=== PATIENT | female | born 1950 | race Caucasian/White ===

== ENCOUNTER 2020-08-18 10:58 | Outpatient (REF) | payer MEDICARE, SELFPAY | END 2020-08-18 10:59 | disposition home or self-care (01) | LOC: HO.LAB 10:58 | PROVIDERS: PCP Internal Medicine; Visit Provider Internal Medicine | DX: Z20.828 Contact with and (suspected) exposure to other viral communicable diseases (principal) | CPT/HCPCS: C9803; U0003 ==

== ENCOUNTER 2020-11-17 08:58 | Outpatient (REF) | payer MEDICARE, SELFPAY ==
[2020-11-17 10:55] LABS: Cholesterol 159 mg/dL; HDL Cholesterol 34 mg/dL; LDL Cholesterol Calculated 95 mg/dl; Triglycerides 152 mg/dL
== END 2020-11-17 08:59 | disposition home or self-care (01) ==
LOC: HO.LAB 08:58
PROVIDERS: PCP Internal Medicine; Visit Provider Internal Medicine
DX: E78.5 Hyperlipidemia, unspecified (principal)
CPT/HCPCS: 36415; 80061

== ENCOUNTER 2020-11-18 05:24 | Emergency (ER) | payer MEDICARE, SELFPAY ==
--- NOTE | 2020-11-18 05:35 | ECG_ITS ---
Test Reason : PALPITATIONS Blood Pressure : / mmHG Vent. Rate : 099 BPM Atrial Rate : 099 BPM P-R Int : 216 ms QRS Dur : 086 ms QT Int : 346 ms P-R-T Axes : 039 -36 009 degrees QTc Int : 444 ms Sinus rhythm with 1st degree A-V block Left axis deviation Nonspecific ST abnormality Abnormal ECG When compared with ECG of 09-JUL-2015 07:41, IA interval has increased Vent. rate has increased BY 49 BPM Nonspecific T wave abnormality, improved in Anterolateral leads QT has lengthened Referred By: Lavern Aguayo Electronically Signed By:HARDY MARIE MD
--- NOTE | 2020-11-18 05:36 | ED.ARRPALP ---
HPI - Arrhythmia/Palpitations General Chief Complaint: Arrhythmia/Palpitations Stated Complaint: Fast heartbeat Time Seen by Provider: 11/18/20 05:35 Source: patient Mode of arrival: ambulatory History of Present Illness HPI narrative: This is a 70-year-old female with history of hypertension and hypercholesterolemia who presents with onset ?heart racing and palpitations? this started early this morning. Patient states that this is not been associated with any fevers, chills, cough, shortness of breath, dizziness, headache and states that this last occurred when she was diagnosed with COVID in 07/2020. She stated that time that resolved and she did not undergo any further evaluation. Patient then endorses that she had her 1st COVID-19 vaccine approximately 2 weeks ago and since that time has been having intermittent palpitations, but this morning was the most persistent. She has concerns regarding proceeding with the 2nd vaccine and her history is significant for having lost her in August to COVID-19, but she states she has not felt like she was ?anxious?. Related Data Home Medications Medication Instructions Recorded Confirmed amlodipine 2.5 mg tablet 2.5 mg PO DAILY 08/22/20 08/24/20 atorvastatin 10 mg tablet 10 mg PO DAILY 08/22/20 08/24/20 clobetasol 0.05 % topical cream 1 appl TOPICAL BID 08/22/20 08/24/20 fenofibrate 160 mg tablet 160 mg PO DAILY 08/22/20 08/24/20 valsartan 320 mg tablet 320 mg PO DAILY 08/22/20 08/24/20 Allergies Allergy/AdvReac Type Severity Reaction Status Date / Time No Known Allergies Allergy Verified 11/16/20 12:52 Review of Systems Review of Systems: Pertinent positives and negatives as stated in HPI 10 point review of systems is otherwise negative. PMFSH Past Medical History Source: nursing notes reviewed Surgical History H/O rectal polypectomy History of bladder surgery History of cholecystectomy Family History Family History Father Hodgkin disease Mother Medical history unknown Social History Social History Smoking Status: Never smoker Use of substances other than those prescribed or required for medical reasons: No Advance Directives: No Physical Exam Vital Signs: Vital Signs: Last Vital Signs Temp 98 F 11/18/20 05:39 Pulse 90 11/18/20 05:39 Resp 16 11/18/20 05:39 BP 184/91 H 11/18/20 05:39 Pulse Ox 95 11/18/20 05:39 Body Mass Index 33.9 VITAL SIGNS: Reviewed. GENERAL: Well developed, well nourished, in no acute distress. HEAD: Normocephalic/atraumatic, NOSE: Nares patent bilateral OROPHARYNX: no oral lesions noted, posterior pharynx clear NECK: Supple, no adenopathy LUNGS: Normal breath sounds. No adventitious sounds or accessory muscle use. SpO2<95> CARDIOVASCULAR: Regular rate and rhythm without noted murmurs, no JVD or lower extremity edema. ABDOMEN: Soft, non-tender, non-distended with bowel sounds. NEUROLOGIC: Alert and oriented x 4. Course Course Course Narrative: This is a 70-year-old female with history and clinical presentation consistent with palpitations and will evaluate for etiologies infection, anemia, arrhythmia, electrolyte abnormalities, and suspect there is a component of anxiety secondary to a motion all association with COVID-19 due to the loss of her in August/2020. Patient was encouraged to proceed with the 2nd COVID-19 vaccine. Patient signed out to Dr Morse. MDM - Arrhythmia/Palpitations ECG Data Attestation: I personally reviewed and interpreted this ECG as follows: Prior ECG tracings: available for review (07/09/2015 there is minor change in comparison with [id number]) Interpretation: Sinus rhythm with first-degree AV block, HR-99, no evidence of acute ischemia, KYAW-216, QRS/QTC are within normal limits. Discharge Plan Discharge Prescriptions: No Action fenofibrate 160 mg tablet 160 mg PO DAILY RF: 0 amlodipine 2.5 mg tablet 2.5 mg PO DAILY RF: 0 atorvastatin 10 mg tablet 10 mg PO DAILY RF: 0 valsartan 320 mg tablet 320 mg PO DAILY RF: 0 clobetasol 0.05 % cream 1 appl topical BID RF: 0
[2020-11-18 05:39] VITALS: BP 184/91; PULSE 90; RESP 16; TEMP 36.6; O2SAT 95; BMI 33.9
[2020-11-18 06:41] LABS: MANUAL DIFF FLAG NO
[2020-11-18 06:42] VITALS: BP 149/62
[2020-11-18 06:43] LABS: Basophils Percent Auto 0.7 % (0-2); Eosinophils Absolute Auto 0.2 X10*3/uL (0.0-0.4); Hematocrit 43.5 % (37-47); Hemoglobin 15.1 g/dl (12.0-16.0); Imm Gran Abs Auto 0.01 X10*3/uL (0.00-0.03); Imm Gran Pct Auto 0.2 % (0.0-0.4); Lymphocytes Absolute Auto 1.1 X10*3/uL (1.2-4.9); Lymphocytes Percent Auto 25.6 % (20-40); Mean Corpuscular HGB Conc 34.7 g/dl (31.0-35.0); Mean Corpuscular Hemoglobin 31.1 pg (27.0-33.0); Mean Corpuscular Volume 89.7 fL (80-98); Mean Platelet Volume 10.6 fL (9.4-12.3); Monocytes Absolute Auto 0.5 X10*3/uL (0.1-1.2); Monocytes Percent Auto 10.8 % (2-11); Neutrophils Absolute Auto 2.6 X10*3/uL (2.0-8.3); Neutrophils Percent Auto 58.7 % (45-73); Platelet Count 207 X10*3/uL (160-400); Red Blood Count 4.85 X10*6/uL (4.20-5.50); Red Cell Distribution Width 12.5 % (11.0-16.0); White Blood Count 4.5 X10*3/uL (4.8-10.8)
[2020-11-18 06:54] LABS: Glucose Urine UA >=1000 MG/DL (NEG); Leukocyte Esterase Urine NEG (NEG); Nitrite Urine NEG (NEG); Specific Gravity - Urine 1.025 (1.005-1.025); Urine Blood NEG (NEG); Urine Ketones NEG (NEG); Urine Protein NEG (NEG-TRACE)
[2020-11-18 07:02] LABS: Appearance Urine CLEAR; Color Urine YELLOW
[2020-11-18 07:08] LABS: Bacteria Urine TRACE /LPF; RBC Urine 0-2 /HPF (0); Squamous Epithelial Cell Urine 2+ /LPF
[2020-11-18 07:14] LABS: Alanine Aminotransferase 21 U/L (0-31); Alkaline Phosphatase 36 U/L (39-117); Anion Gap 15 (12-20); Aspartate Amino Transferase 18 U/L (5-31); Bilirubin Total 0.5 mg/dL (0.0-1.0); Blood Urea Nitrogen 18 mg/dL (9-16); Calcium 9.5 mg/dL (8.4-10.2); Carbon Dioxide 21 mmol/L (22-29); Chloride 106 mmol/L (96-108); Creatinine Clr Calc Pharmacy 72.1; Estimated Glomerular Filt Rate > 60; Glucose Random 284 mg/dL (60-115); Lipase 30 U/L (8-78); Potassium 4.3 mmol/L (3.3-5.1); Sodium 138 mmol/L (135-145)
[2020-11-18 08:23] VITALS: BP 156/85; PULSE 86; RESP 16; O2SAT 95
== END 2020-11-18 09:46 | disposition home or self-care (01) ==
PROVIDERS: Student in an Organized Health Care Education/Training Program; Emergency Provider Emergency Medicine Emergency Medical Services; PCP Internal Medicine
DX: R00.2 Palpitations (principal); R73.9 Hyperglycemia, unspecified; I10 Essential (primary) hypertension; E78.00 Pure hypercholesterolemia, unspecified; Z86.16 Personal history of COVID-19; Z72.89 Other problems related to lifestyle; Z63.4 Disappearance and death of family member; Z79.02 Long term (current) use of antithrombotics/antiplatelets
CPT/HCPCS: 36415; 80053; 81001; 81003; 83690; 85025; 93005; 99283; 99285

== ENCOUNTER 2021-02-14 09:26 | Outpatient (REF) | payer MEDICARE, SELFPAY ==
[2021-02-14 10:27] LABS: Estimated Average Glucose 206 mg/dL; Hemoglobin A1c % 8.8 %
[2021-02-14 10:30] LABS: Glucose Fasting 185 mg/dL (60-99)
== END 2021-02-14 09:27 | disposition home or self-care (01) ==
LOC: HO.LAB 09:26
PROVIDERS: PCP Internal Medicine; Visit Provider Internal Medicine
DX: E11.65 Type 2 diabetes mellitus with hyperglycemia (principal)
CPT/HCPCS: 36415; 82947; 83036

== ENCOUNTER 2021-03-28 08:54 | Outpatient (REF) | payer MEDICARE, SELFPAY ==
[2021-03-28 09:58] LABS: Glucose Fasting 118 mg/dL (60-99)
[2021-03-28 10:17] LABS: Estimated Average Glucose 163 mg/dL; Hemoglobin A1c % 7.3 %
[2021-03-28 11:16] LABS: Creatinine Urine 108.85 mg/dL; Microalbum/Creatinine Ratio Ur 14.6 ug/mg cr
== END 2021-03-28 08:55 | disposition home or self-care (01) ==
LOC: HO.LAB 08:54
PROVIDERS: PCP Internal Medicine; Visit Provider Internal Medicine
DX: E11.65 Type 2 diabetes mellitus with hyperglycemia (principal)
CPT/HCPCS: 36415; 82043; 82947; 83036

== ENCOUNTER 2021-06-09 15:42 | Outpatient (REF) | payer MEDICARE, SELFPAY ==
[2021-06-09 15:50] LABS: Appearance Urine CLEAR; Color Urine YELLOW; Glucose Urine UA NEG (NEG); Leukocyte Esterase Urine TRACE (NEG); Nitrite Urine NEG (NEG); PH 6.5 (5.0-8.0); Specific Gravity - Urine 1.025 (1.005-1.025); UACC Culture Trigger YES; Urine Blood NEG (NEG); Urine Ketones NEG (NEG); Urine Protein NEG (NEG-TRACE)
[2021-06-09 16:04] LABS: Bacteria Urine 2+ /LPF; RBC Urine 0 /HPF (0); Squamous Epithelial Cell Urine 3+ /LPF; WBC Urine 0-2 /HPF (0-4)
== END 2021-06-09 15:43 | disposition home or self-care (01) ==
LOC: HO.LNP 15:42
PROVIDERS: Visit Provider Physician Assistant Medical
DX: R30.0 Dysuria (principal)
CPT/HCPCS: 81001; 87086

== ENCOUNTER 2021-07-11 08:58 | Outpatient (REF) | payer MEDICARE, SELFPAY ==
[2021-07-11 10:37] LABS: Glucose Fasting 121 mg/dL (60-99)
[2021-07-11 10:45] LABS: Estimated Average Glucose 131 mg/dL; Hemoglobin A1c % 6.2 %
== END 2021-07-11 08:59 | disposition home or self-care (01) ==
LOC: HO.LAB 08:58
PROVIDERS: PCP Internal Medicine; Visit Provider Internal Medicine
DX: E11.65 Type 2 diabetes mellitus with hyperglycemia (principal)
CPT/HCPCS: 36415; 82947; 83036

== ENCOUNTER 2021-10-03 08:57 | Outpatient (REF) | payer MEDICARE, SELFPAY ==
--- NOTE | ~2021-10-03 | US_ITS ---
EXAMINATION: US ABDOMEN COMPLETE CLINICAL INFORMATION: Unspecified abdominal pain. COMPARISON: CT abdomen and pelvis 07/04/2011. Ultrasound kidneys and bladder 01/16/2011. TECHNIQUE: Real-time imaging of the abdominal viscera. Technically difficult study secondary to bowel gas and body habitus. FINDINGS: PANCREAS: Visualized portions unremarkable. ABDOMINAL AORTA: Visualized portions unremarkable. INFERIOR VENA CAVA: Visualized portions unremarkable. LIVER: Diffuse increased echotexture without focal abnormality. GALLBLADDER: Surgically absent. COMMON BILE DUCT: 0.7 cm. Unremarkable. RIGHT KIDNEY: 11.0 cm. Unremarkable. LEFT KIDNEY: 11.0 cm. An anechoic cyst in the upper pole measures 2.4 cm. Color Doppler showed no abnormal vascular flow. SPLEEN: 11.5 cm. Unremarkable. FREE FLUID: None. US/US abdomen complete IMPRESSION: 1. Hepatic steatosis without other significant abnormality in a patient status post cholecystectomy. 2. Left renal cyst demonstrates benign features.
== END 2021-10-03 08:58 | disposition home or self-care (01) ==
LOC: HO.US 08:57
PROVIDERS: Visit Provider Internal Medicine
DX: R10.9 Unspecified abdominal pain (principal)
CPT/HCPCS: 76700

== ENCOUNTER 2021-10-12 09:04 | Outpatient (REF) | payer MEDICARE, SELFPAY ==
[2021-10-12 09:57] LABS: Estimated Average Glucose 137 mg/dL; Hemoglobin A1c % 6.4 %
[2021-10-12 09:59] LABS: Glucose Fasting 117 mg/dL (60-99)
== END 2021-10-12 09:05 | disposition home or self-care (01) ==
LOC: HO.LAB 09:04
PROVIDERS: PCP Internal Medicine; Visit Provider Internal Medicine
DX: E11.65 Type 2 diabetes mellitus with hyperglycemia (principal)
CPT/HCPCS: 36415; 82947; 83036

== ENCOUNTER 2022-01-01 09:12 | Outpatient (REF) | payer OTHER, MEDICARE, SELFPAY ==
--- NOTE | ~2022-01-01 | XR_ITS ---
EXAMINATION: XR HAND, LEFT CLINICAL INFORMATION: Pain in the hand. COMPARISON: None. TECHNIQUE: PA, lateral, and oblique views of the left hand. 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 The remaining bones, joints and soft tissues are normal. 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
[2022-01-01 10:51] LABS: Estimated Average Glucose 134 mg/dL; Hemoglobin A1c % 6.3 %
[2022-01-01 11:27] LABS: Cholesterol 142 mg/dL; Glucose Fasting 104 mg/dL (60-99); HDL Cholesterol 30 mg/dL; LDL Cholesterol Calculated 80 mg/dl; Triglycerides 164 mg/dL
== END 2022-01-01 09:13 | disposition home or self-care (01) ==
LOC: HO.LAB 09:12
PROVIDERS: PCP Internal Medicine; Visit Provider Internal Medicine
DX: Z00.00 Encounter for general adult medical examination without abnormal findings (principal); E11.65 Type 2 diabetes mellitus with hyperglycemia; M79.642 Pain in left hand
CPT/HCPCS: 36415; 73120; 80061; 82947; 83036

== ENCOUNTER 2022-02-13 09:30 | Outpatient (RCR) | payer OTHER, MEDICARE, SELFPAY ==
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
== END 2022-02-13 13:41 | disposition home or self-care (01) ==
LOC: HO.OT 09:30
PROVIDERS: PCP Internal Medicine; Visit Provider Internal Medicine
DX: M25.532 Pain in left wrist (principal)
CPT/HCPCS: 29125; 97035; 97110; 97140; 97165; 97760

== ENCOUNTER 2022-03-21 10:00 | Outpatient (RCR) | payer OTHER, MEDICARE, SELFPAY ==
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
--- NOTE | 2022-03-21 13:55 | MHC.PT.DC ---
[facility] [place] Office [place] Office [place] Office [address] Philipp Stahl [address] [phone] F: [phone] F: [phone] F: [phone] F: [phone] Physical Therapy Discharge Report Diagnosis: Contusion of unspecified thigh Date of Surgery: N/A Date of Evaluation: 02/25/22 Date of Discharge: 03/21/22 Treatments to Date: 7 Cancellations to Date: No Shows to Date: Discharge Status: Achieved Goals Improved Function Independent with HEP Discharge Summary: Pt has made excellent progress since SOC. She has met her STGs and made good progress toward her LTGs. She has improved ROM and strength throughout B LE's. She has no pain and she is able to perform all functional activities including stair navigation and getting in/out of car without pain or compensation. She is I with HEP. Pt is being D/C from PT at this time. She has printed, updated copy of HEP. Pt reports no further questions or concerns for PT at this time. Electronically signed by: Cassidy Levine, PT, DPT Please sign and return to therapist. Thank you for your referral.
== END 2022-03-21 13:56 | disposition home or self-care (01) ==
LOC: HO.PT 10:00
PROVIDERS: Visit Provider Internal Medicine
DX: S70.10 Contusion of unspecified thigh (principal); V89.2XXD Person injured in unspecified motor-vehicle accident, traffic, subsequent encounter
CPT/HCPCS: 97110; 97140; 97161

== ENCOUNTER 2022-04-17 08:08 | Outpatient (REF) | payer MEDICARE, SELFPAY ==
[2022-04-17 08:58] LABS: Estimated Average Glucose 123 mg/dL; Hemoglobin A1c % 5.9 %
[2022-04-17 09:34] LABS: Cholesterol 139 mg/dL; Glucose Fasting 127 mg/dL (60-99); HDL Cholesterol 32 mg/dL; LDL Cholesterol Calculated 81 mg/dl; Triglycerides 133 mg/dL
== END 2022-04-17 08:09 | disposition home or self-care (01) ==
LOC: HO.LAB 08:08
PROVIDERS: PCP Internal Medicine; Visit Provider Internal Medicine
DX: E11.65 Type 2 diabetes mellitus with hyperglycemia (principal)
CPT/HCPCS: 36415; 80061; 82947; 83036

== ENCOUNTER → 2022-05-16 15:13 | Outpatient (REF) | payer MEDICARE, OTHER, SELFPAY ==
--- NOTE | 2022-05-16 15:17 | ECG_ITS ---
Test Reason : PALPITATIONS Blood Pressure : / mmHG Vent. Rate : 063 BPM Atrial Rate : 063 BPM P-R Int : 194 ms QRS Dur : 088 ms QT Int : 410 ms P-R-T Axes : 049 -22 012 degrees QTc Int : 419 ms Normal sinus rhythm Nonspecific T wave abnormality Abnormal ECG When compared with ECG of 18-NOV-2020 05:36, Vent. rate has decreased BY 36 BPM Nonspecific T wave abnormality, worse in Anterolateral leads Referred By: Octaviano Scott Electronically Signed By:NEREIDA BROOKE
== END ==
LOC: HO.CARD 15:13
PROVIDERS: Visit Provider Internal Medicine
DX: Z13.6 Encounter for screening for cardiovascular disorders (principal)
CPT/HCPCS: 93005

== ENCOUNTER 2022-08-07 07:37 | Outpatient (REF) | payer MEDICARE, SELFPAY ==
[2022-08-07 08:47] LABS: Glucose Fasting 138 mg/dL (60-99)
[2022-08-07 09:29] LABS: Estimated Average Glucose 146 mg/dL; Hemoglobin A1c % 6.7 %
== END 2022-08-07 07:38 | disposition home or self-care (01) ==
LOC: HO.LAB 07:37
PROVIDERS: PCP Internal Medicine; Visit Provider Internal Medicine
DX: E11.65 Type 2 diabetes mellitus with hyperglycemia (principal)
CPT/HCPCS: 36415; 82947; 83036

== ENCOUNTER 2022-11-06 08:59 | Outpatient (REF) | payer MEDICARE, SELFPAY ==
[2022-11-06 09:39] LABS: Estimated Average Glucose 148 mg/dL; Hemoglobin A1c % 6.8 %
[2022-11-06 10:07] LABS: Cholesterol 121 mg/dL; Glucose Fasting 124 mg/dL (60-99); HDL Cholesterol 30 mg/dL; LDL Cholesterol Calculated 62 mg/dl; Triglycerides 145 mg/dL
== END 2022-11-06 09:00 | disposition home or self-care (01) ==
LOC: HO.LAB 08:59
PROVIDERS: PCP Internal Medicine; Visit Provider Internal Medicine
DX: E78.5 Hyperlipidemia, unspecified (principal); E11.65 Type 2 diabetes mellitus with hyperglycemia
CPT/HCPCS: 36415; 80061; 82947; 83036

== ENCOUNTER 2023-02-28 08:57 | Outpatient (REF) | payer MEDICARE, SELFPAY ==
[2023-02-28 10:04] LABS: Cholesterol 124 mg/dL; Glucose Fasting 97 mg/dL (60-99); HDL Cholesterol 40 mg/dL; LDL Cholesterol Calculated 69 mg/dl; Triglycerides 79 mg/dL
[2023-02-28 10:19] LABS: Estimated Average Glucose 134 mg/dL; Hemoglobin A1c % 6.3 %
== END 2023-02-28 08:58 | disposition home or self-care (01) ==
LOC: HO.LAB 08:57
PROVIDERS: PCP Internal Medicine; Visit Provider Internal Medicine
DX: E78.5 Hyperlipidemia, unspecified (principal); R73.9 Hyperglycemia, unspecified
CPT/HCPCS: 36415; 80061; 82947; 83036

== ENCOUNTER 2023-03-17 09:00 | Outpatient (RCR) | payer MEDICARE, SELFPAY ==
--- NOTE | 2022-12-18 13:30 | MHC.PT.EP ---
[facility] [place] Office [place] Office [place] Office [address] Philipp Stahl [address] [phone] F: [phone] F: [phone] F: [phone] F: [phone] Physical Therapy Plan of Care Date of Evaluation: Date of Surgery: Diagnosis: low back pain (MD Dx) L piriformis syndrome (PT Dx) Assessment: Patient is a pleasant 72 y.o. female who is referred to PT by Dr. Octaviano Scott MD with Dx of low back pain. PT diagnosis is LEFT piriformis syndrome, sciatica. Patient impairments include pain, limited ROM, weakness, antalgic gait. Patient current functional limitations are prolonged standing, walking, getting up in the morning, putting on shoes/socks, lift leg to get into car, unable to perform reciprocal stairs. Patient will benefit from skilled PT to address aforementioned impairments and functional limitations to meet established goals. Frequency and Duration: The patient will be seen 2x/week for 4 weeks Short Term Goals: 2 weeks Patient demonstrates consistency and independence with HEP to self manage symptoms. Patient demonstrates normalized gait pattern without compensations to ambulate community distances. Jail Goals: 4 weeks Patient presents with increased L hip glute med strength 4/5 to be able to ascend/descend 12 steps reciprocally with railings. Patienr presents with increased lumbar spine flexion 80 degrees to be able to don/doff shoes/socks. Treatment Plan: Modalities to reduce pain, spasms and effusion. Manual therapy to restore motion and function. Therapeutic exercise to improve strength and flexibility. Neuromuscular re-education for posture and balance. Therapeutic activities to return to functional activities of daily living. Electronically signed by: Ibeth Estrada, PT, DPT Please sign and return to therapist. Thank you for your referral.
--- NOTE | 2023-03-17 10:42 | MHC.PT.DC ---
[facility] [place] Office [place] Office [place] Office [address] Philipp Stahl 140 [facility] [phone] F: [phone] F: [phone] F: [phone] F: [phone] Physical Therapy Discharge Report Diagnosis: low back pain (MD Dx) L piriformis syndrome (PT Dx) Date of Surgery: Date of Evaluation: 12/18/22 Date of Discharge: Treatments to Date: 13 Cancellations to Date: No Shows to Date: Discharge Status: Discharge Summary: Mercedes demonstrates improvement in all areas, is pain free, improved AROM, increased hip strength and no antalgic gait. She demonstrates ability to self manage symptoms with postural changes and HEP. She is discharged from PT at this time. Electronically signed by: Please sign and return to therapist. Thank you for your referral.
== END 2023-03-17 10:42 | disposition home or self-care (01) ==
LOC: HO.PT 09:00
PROVIDERS: PCP Internal Medicine; Visit Provider Internal Medicine
DX: M54.50 Low back pain, unspecified (principal)
CPT/HCPCS: 97110; 97140; 97162; 97530

== ENCOUNTER 2023-05-30 09:00 | Outpatient (REF) | payer MEDICARE, SELFPAY ==
[2023-05-30 09:21] LABS: MANUAL DIFF FLAG NO
[2023-05-30 09:39] LABS: Basophils Percent Auto 0.9 % (0-2); Eosinophils Absolute Auto 0.3 X10*3/uL (0.0-0.4); Eosinophils Percent Auto 5.7 % (0-4); Hematocrit 41.2 % (37.0-47.0); Hemoglobin 14.1 g/dl (12.0-16.0); Imm Gran Abs Auto 0.02 X10*3/uL (0.00-0.03); Imm Gran Pct Auto 0.5 % (0.0-0.4); Lymphocytes Absolute Auto 1.3 X10*3/uL (1.2-4.9); Lymphocytes Percent Auto 28.7 % (20-40); Mean Corpuscular HGB Conc 34.2 g/dl (31.0-35.0); Mean Corpuscular Hemoglobin 29.9 pg (27.0-33.0); Mean Corpuscular Volume 87.3 fL (80.0-98.0); Mean Platelet Volume 10.4 fL (9.4-12.3); Monocytes Absolute Auto 0.5 X10*3/uL (0.1-1.2); Monocytes Percent Auto 11.1 % (2-11); Neutrophils Absolute Auto 2.4 x10*3/uL (2.0-8.3); Neutrophils Percent Auto 53.1 % (45-73); Platelet Count 201 X10*3/uL (160-400); Red Blood Count 4.72 X10*6/uL (4.20-5.50); Red Cell Distribution Width 12.6 % (11.0-16.0); White Blood Count 4.4 X10*3/uL (4.8-10.8)
[2023-06-04 21:38] LABS: Glucose-6-Phosphate Dehydrogen 12.5 U/g Hgb (7.0-20.5)
== END 2023-05-30 09:01 | disposition home or self-care (01) ==
LOC: HO.LAB 09:00
PROVIDERS: Absent Provider Physician Assistant Medical; PCP Internal Medicine; Visit Provider Internal Medicine
DX: L13.8 Other specified bullous disorders (principal); Z79.899 Other long term (current) drug therapy
CPT/HCPCS: 36415; 82955; 85025

== ENCOUNTER 2023-06-05 09:27 | Outpatient (AMB) | payer MEDICARE, SELFPAY ==
[2023-06-05 09:28] VITALS: BP 136/64; PULSE 58; O2SAT 98; BMI 33.9
--- NOTE | 2023-06-05 09:28 | MHC.PC.OV ---
Vital Signs 06/05/23 09:28 Height 5 ft 6 in Weight 210 lb BMI 33.9 BP 136/64 Blood Pressure Location Lt brachial Position Sitting Pulse 58 Pulse Source Pulse Oximeter Pulse Oximetry (%) 98 Oxygen Delivery Method Room Air Intake Visit Reasons: 3mth f/u Grid Inspector: Not Required per policy Accompanied by: Self / Same As Patient Allergies No Known Allergies Allergy (Verified 06/05/23 09:28) Medication List - Last Reconciled 06/05/23 by Octaviano Scott MD amlodipine 2.5 mg PO DAILY atorvastatin 10 mg PO DAILY blood sugar diagnostic to check blood sugars twice a day blood-glucose meter ([employer] Ultra2 Meter) Use to check blood sugars twice a day fenofibrate 160 mg PO DAILY lancets ([employer]ica Lancets) to use twice a day metformin 500 mg PO BID methylprednisolone (Medrol (Charles)) PO PER PKG DIR valsartan 320 mg PO DAILY Tobacco use date assessed: 11/11/22 Fall risk assessment: No Falls in past year Last assessed Fall Risk: 06/05/23 Dental Screening Dental Screen Date: 06/05/23 Did you have a dental visit in the last 12 months?: Yes Did you have a dental problem in the last 6 months where you did not have access to dental care?: No HPI 3mth f/u HPI Details HTN Hyperlipidemia and DM; stable; labs fine; compliant [facility] Medical History Hypertension Obesity Type 2 diabetes mellitus with obesity Diabetes mellitus Surgical History History of bladder surgery H/O rectal polypectomy History of cholecystectomy Family History Father Hodgkin disease Mother Medical history unknown Social History Housing: House Alcohol intake: current Alcohol intake frequency: a few times a week Patient Tobacco Use Status: Never used Tobacco e-Cigarette/Vaping Use: Never Used Second Hand Smoke Exposure: No service: No Current occupational status: retired Current occupational exposures/hazards: No Cognitive needs: No Hearing needs: No Vision needs: Yes Questionnaire PHQ-9 Over the last 2 weeks, how often have you been bothered by any of the following problems? 1. Little interest or pleasure in doing things: not at all 2. Feeling down, depressed, or hopeless: not at all 3. Trouble falling or staying asleep, or sleeping too much: not at all 4. Feeling tired or having little energy: not at all 5. Poor appetite or overeating: not at all 6. Feeling bad about yourself - or that you are a failure or have let yourself or your family down: not at all 7. Trouble concentrating on things, such as reading the newspaper or watching television: not at all 8. Moving or speaking so slowly that other people could have noticed. Or the opposite - being so fidgety or restless that you have been moving around a lot more than usual: not at all 9. Thoughts that you would be better off or of hurting yourself in some way: not at all Total score: 0 Depression Screening Interpretation: Negative [id number] - PHQ-9 Billing: Yes Source: Developed by Drs. Kaden Perea, Charlee Cerrato, Rylan Richter and colleagues, with an educational roxanne from [employer]. Thrive Questionnaire Date Thrive assessed: 11/11/22 AUDIT C Alcohol Use Questionnaire (AUDIT-C) 1. How often do you have a drink containing alcohol?: Never Total Score: 0 Score Reviewed/Action Taken: Yes DALILA-7 AMB Questionnaire DALILA-7 Date DALILA - 7 assessed: 11/11/22 Source: Developed by Drs. Kaden Perea, Charlee Cerrato, Rylan Richter and colleagues, with an educational roxanne from [employer]. Review of Systems Const Denies chills, Denies headache(s) and Denies weight loss ENT Denies headache(s) Card Denies chest pain, Denies syncope, Denies irregular heart rhythm and Denies dyspnea Resp Denies chest congestion, Denies cough and Denies dyspnea GI Denies abdominal pain, Denies change in stool character, Denies nausea and Denies vomiting Musc Denies deformity and Denies joint swelling Neuro Denies syncope and Denies headache(s) Physical exam (Primary Care) Vital Signs: Last Vital Signs Pulse 58 06/05/23 09:28 BP 136/64 06/05/23 09:28 Pulse Ox 98 06/05/23 09:28 Oxygen Delivery Method Room Air 06/05/23 09:28 BMI result Body Mass Index 33.9 Tobacco/Smoking Status: Tobacco use Status Tobacco use date assessed 11/11/22 06/05/23 09:29 Patient Tobacco Use Status Never used Tobacco 06/05/23 09:29 e-Cigarette/Vaping Use Never Used 06/05/23 09:29 PHQ-9: PHQ-9 Score PHQ-9: Total score 0 06/05/23 09:41 Depression Screening Interpretation: Negative Thrive Assessment: Date of Thrive Assessment Date Thrive assessed 11/11/22 06/05/23 09:29 Const General: cooperative, comfortable, no acute distress and alert Neck Neck: Yes no lymphadenopathy Thyroid: Thyroid normal Resp Effort & Inspection: normal respiratory effort Auscultation: clear to auscultation bilaterally Percussion: percussion normal Cardio Jugular venous distension: no JVD Palpation: normal PMI Rate: regular rate Rhythm: regular rhythm Heart sounds: S1 normal heart sound present and S2 normal heart sound present GI Inspection: Yes normal to inspection Palpation (GI): No hepatosplenomegaly present Skin General skin exam: no rashes or lesions noted Extrem General: Yes no clubbing, cyanosis or edema Results AMB Hemoglobin A1c AMB Hemoglobin A1c 6.8 % Last Edit by DAVION Sandoval on 06/05/23 09:42 Results Reviewed Results Reviewed: Laboratory Last Values Hgb A1c (Clinic) 6.8 % (4.0-6.0) H 06/05/23 09:30 Assessment and Plan Assessment & Plan (1) Type 2 diabetes mellitus with obesity: Code(s): E11.69 - Type 2 diabetes mellitus with other specified complication; E66.9 - Obesity, unspecified Plan: stable; same rx (2) Hypertension: Code(s): I10 - Essential (primary) hypertension Plan: stable; same rx (3) Hyperlipidemia: Code(s): E78.5 - Hyperlipidemia, unspecified Plan: stable; same rx Orders: Orders AMB Hemoglobin A1c Today E11.69 - Type 2 diabetes mellitus with other specified complication, E66.9 - Obesity, unspecified Coding Level of Care Code Est Pt Level 4 (19892) Diagnoses Type 2 diabetes mellitus with obesity E11.69; E66.9 Hypertension I10 Hyperlipidemia E78.5
== END 2023-06-05 10:22 | disposition home or self-care (01) ==
PROVIDERS: PCP Internal Medicine; Visit Provider Internal Medicine
DX: E11.69 Type 2 diabetes mellitus with other specified complication (principal); E66.9 Obesity, unspecified; I10 Essential (primary) hypertension; Z68.33 Body mass index [BMI] 33.0-33.9, adult; E78.5 Hyperlipidemia, unspecified
CPT/HCPCS: 83036; 99214

== ENCOUNTER 2023-08-29 10:02 | Outpatient (REF) | payer MEDICARE, SELFPAY ==
[2023-08-29 11:41] LABS: Estimated Average Glucose 154 mg/dL
[2023-08-29 11:46] LABS: Cholesterol 127 mg/dL (<200); Glucose Fasting 125 mg/dL (60-99); HDL Cholesterol 35 mg/dL (>40); LDL Cholesterol Calculated 66 mg/dL (<100); Triglycerides 133 mg/dL (<150)
[2023-08-29 12:13] LABS: Thyroid Stimulating Hormone 0.73 uIU/mL (0.32-4.0)
== END 2023-08-29 10:03 | disposition home or self-care (01) ==
LOC: HO.LAB 10:02
PROVIDERS: PCP Internal Medicine; Visit Provider Internal Medicine
DX: E03.9 Hypothyroidism, unspecified (principal); R73.9 Hyperglycemia, unspecified; E78.5 Hyperlipidemia, unspecified
CPT/HCPCS: 36415; 80061; 82947; 83036; 84443

== ENCOUNTER 2023-09-04 11:13 | Outpatient (AMB) | payer MEDICARE, SELFPAY ==
--- NOTE | 2023-09-04 11:15 | A.OFFPC_ITS ---
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 Required: No Residential Builder: Not Required per policy Accompanied by: Self / Same As Patient Allergies No Known Allergies Allergy (Verified 09/04/23 11:16) Medication List - Last Reconciled 09/04/23 by Octaviano Scott MD amlodipine 2.5 mg PO DAILY atorvastatin 10 mg PO DAILY azithromycin take 500 mg today (day 1), then 250 mg for 4 days (days 2-5) PO blood sugar diagnostic to check blood sugars twice a day blood-glucose meter ([employer] Ultra2 Meter) Use to check blood sugars twice a day fenofibrate 160 mg PO DAILY lancets ([employer] Delica Lancets) to use twice a day metformin 500 mg PO BID methylprednisolone (Medrol (Charles)) PO PER PKG DIR valsartan 320 mg PO DAILY Tobacco use date assessed: 11/11/22 Fall risk assessment: No Falls in past year Last assessed Fall Risk: 09/04/23 Dental Screening Dental Screen Date: 09/04/23 Did you have a dental visit in the last 12 months?: Yes Did you have a dental problem in the last 6 months where you did not have access to dental care?: No Was dental information given to patient?: Patient has dentist HPI 3mth f/u HPI Details HTN hyperlip and osteoporosis; doing well on rx PFSH Medical History Hypertension Obesity Type 2 diabetes mellitus with obesity Diabetes mellitus Surgical History History of bladder surgery H/O rectal polypectomy History of cholecystectomy Family History Father Hodgkin disease Mother Medical history unknown Social History Housing: House Alcohol intake: current Alcohol intake frequency: a few times a week Patient Tobacco Use Status: Never used Tobacco e-Cigarette/Vaping Use: Never Used Second Hand Smoke Exposure: No service: No Current occupational status: retired Current occupational exposures/hazards: No Cognitive needs: No Hearing needs: No Vision needs: Yes Questionnaire Thrive Questionnaire Date Thrive assessed: 11/11/22 DALILA-7 AMB Questionnaire DALILA-7 Date DALILA - 7 assessed: 11/11/22 Source: Developed by Drs. Kaden Perea, Charlee Cerrato, Rylan Richter and colleagues, with an educational roxanne from [employer]. Review of Systems Const Denies chills, Denies headache(s) and Denies weight loss ENT Denies headache(s) Card Denies chest pain, Denies syncope, Denies irregular heart rhythm and Denies dyspnea Resp Denies chest congestion, Denies cough and Denies dyspnea GI Denies abdominal pain, Denies change in stool character, Denies nausea and Denies vomiting Musc Denies deformity and Denies joint swelling Neuro Denies syncope and Denies headache(s) Physical exam (Primary Care) Vital Signs: Last Vital Signs Pulse 65 09/04/23 11:16 BP 144/72 H 09/04/23 11:16 Pulse Ox 98 09/04/23 11:16 Oxygen Delivery Method Room Air 09/04/23 11:16 BMI result Body Mass Index 33.6 Tobacco/Smoking Status: Tobacco use Status Tobacco use date assessed 11/11/22 09/04/23 11:20 Patient Tobacco Use Status Never used Tobacco 09/04/23 11:20 e-Cigarette/Vaping Use Never Used 09/04/23 11:20 Thrive Assessment: Date of Thrive Assessment Date Thrive assessed 11/11/22 09/04/23 11:20 Const General: cooperative, comfortable, no acute distress and alert Neck Neck: Yes no lymphadenopathy Thyroid: Thyroid normal Resp Effort & Inspection: normal respiratory effort Auscultation: clear to auscultation bilaterally Percussion: percussion normal Cardio Jugular venous distension: no JVD Palpation: normal PMI Rate: regular rate Rhythm: regular rhythm Heart sounds: S1 normal heart sound present and S2 normal heart sound present GI Inspection: Yes normal to inspection Palpation (GI): No hepatosplenomegaly present Skin General skin exam: no rashes or lesions noted Extrem General: Yes no clubbing, cyanosis or edema Assessment and Plan Assessment & Plan (1) Hyperlipidemia: Code(s): E78.5 - Hyperlipidemia, unspecified Plan: stable; same rx (2) Hypertension: Code(s): I10 - Essential (primary) hypertension Plan: stable; same rx Orders: Orders Glucose Fasting Today R73.9 - Hyperglycemia, unspecified Lipid Panel Today E78.5 - Hyperlipidemia, unspecified Hemoglobin A1c Today R73.9 - Hyperglycemia, unspecified Coding Level of Care Code Est Pt Level 3 (49228) Diagnoses Hyperlipidemia E78.5 Hypertension I10
[2023-09-04 11:16] VITALS: BP 144/72; PULSE 65; O2SAT 98; BMI 33.6
== END 2023-09-04 11:52 | disposition home or self-care (01) ==
PROVIDERS: PCP Internal Medicine; Visit Provider Internal Medicine
DX: E78.5 Hyperlipidemia, unspecified (principal); I10 Essential (primary) hypertension
CPT/HCPCS: 99213

== ENCOUNTER 2023-12-09 14:06 | Outpatient (AMB) | payer MEDICARE, SELFPAY ==
[2023-12-09 14:09] VITALS: BP 146/80; PULSE 70; O2SAT 96; BMI 34.1
--- NOTE | 2023-12-09 14:09 | MHC.PC.OV ---
Vital Signs 12/09/23 14:09 Height 5 ft 6 in Weight 211 lb BMI 34.1 BP 146/80 H Blood Pressure Location Lt brachial Position Sitting Pulse 70 Pulse Source Pulse Oximeter Pulse Oximetry (%) 96 Oxygen Delivery Method Room Air Intake Visit Reasons: Bladder Pressure Aircraft Designer Required: No Quantitative Analyst Developer: Not Required per policy Accompanied by: Self / Same As Patient Allergies No Known Allergies Allergy (Verified 09/04/23 11:16) Medication List - Last Reconciled 12/09/23 by Octaviano Scott MD amlodipine 2.5 mg PO DAILY atorvastatin 10 mg PO DAILY blood sugar diagnostic to check blood sugars twice a day blood-glucose meter ([employer] Ultra2 Meter) Use to check blood sugars twice a day fenofibrate 160 mg PO DAILY lancets ([employer] Delica Lancets) to use twice a day metformin 500 mg PO BID sulfamethoxazole-trimethoprim 800-160 mg (Bactrim DS) 1 tab PO BID valsartan 320 mg PO DAILY Tobacco use date assessed: 12/09/23 Fall risk assessment: No Falls in past year Last assessed Fall Risk: 12/09/23 Dental Screening Dental Screen Date: 12/09/23 Did you have a dental visit in the last 12 months?: Yes Did you have a dental problem in the last 6 months where you did not have access to dental care?: No Was dental information given to patient?: Patient has dentist HPI Bladder Pressure HPI Details bladder pressure and frequency for a day [facility] Medical History Hypertension Obesity Type 2 diabetes mellitus with obesity Diabetes mellitus Surgical History History of bladder surgery H/O rectal polypectomy History of cholecystectomy Family History Father Hodgkin disease Mother Medical history unknown Social History Housing: House Alcohol intake: current Alcohol intake frequency: a few times a week Patient Tobacco Use Status: Never used Tobacco e-Cigarette/Vaping Use: Never Used Second Hand Smoke Exposure: No service: No Current occupational status: retired Current occupational exposures/hazards: No Cognitive needs: No Hearing needs: No Vision needs: Yes Questionnaire PHQ-9 Over the last 2 weeks, how often have you been bothered by any of the following problems? 1. Little interest or pleasure in doing things: not at all 2. Feeling down, depressed, or hopeless: not at all 3. Trouble falling or staying asleep, or sleeping too much: not at all 4. Feeling tired or having little energy: not at all 5. Poor appetite or overeating: not at all 6. Feeling bad about yourself - or that you are a failure or have let yourself or your family down: not at all 7. Trouble concentrating on things, such as reading the newspaper or watching television: not at all 8. Moving or speaking so slowly that other people could have noticed. Or the opposite - being so fidgety or restless that you have been moving around a lot more than usual: not at all 9. Thoughts that you would be better off or of hurting yourself in some way: not at all Total score: 0 Depression Screening Interpretation: Negative Depression Screening Done: Yes 58883 - PHQ-9 Billing: Yes Source: Developed by Drs. Kaden Perea, Charlee Cerrato, Rylan Richter and colleagues, with an educational roxanne from [employer]. Thrive Questionnaire Date Thrive assessed: 12/09/23 I am a: Patient What is your living situation today?: I have a steady place to live Within the past 12 months, did the food you bought not last and you didn't have the money to get more?: Never true Within the past 12 months, did you worry whether your food would run out before you got money to buy more?: Never true Do you have trouble paying for medicines?: No Do you have trouble getting transportation to medical appointments?: No Do you have trouble paying your heating and electricity bill?: No Do you have trouble taking care of your child, family member or friend?: No Do you have trouble with day-to-day activities such as bathing, preparing meals, shopping, managing finances, etc.?: No Are you currently unemployed and looking for a job?: No Are you interested in more education?: No Please select the resources that you would like help with: None THRIVE Score: 0 AUDIT C Alcohol Use Questionnaire (AUDIT-C) 1. How often do you have a drink containing alcohol?: Never Total Score: 0 Score Reviewed/Action Taken: Yes DALILA-7 AMB Questionnaire DALILA-7 Date DALILA - 7 assessed: 12/09/23 Feeling nervous, anxious, or on edge: 0 = Not at all Not being able to stop or control worryin = Not at all Worrying too much about different things: 0 = Not at all Trouble relaxin = Not at all Being so restless that it is hard to sit still: 0 = Not at all Becoming easily annoyed or irritable: 0 = Not at all Feeling afraid as if something awful might happen: 0 = Not at all Total DALILA-7 score (0-4 normal; 5-9 mild; 10-14 moderate; 15-21 severe): 0 Source: Developed by Drs. Kaden Perea, Charlee Cerrato, Rylan Richter and colleagues, with an educational roxanne from [employer]. Review of Systems Const Denies chills, Denies headache(s) and Denies weight loss ENT Denies headache(s) Card Denies chest pain, Denies syncope, Denies irregular heart rhythm and Denies dyspnea Resp Denies chest congestion, Denies cough and Denies dyspnea GI Denies abdominal pain, Denies change in stool character, Denies nausea and Denies vomiting Musc Denies deformity and Denies joint swelling Neuro Denies syncope and Denies headache(s) Physical exam (Primary Care) Vital Signs: Last Vital Signs Pulse 70 12/09/23 14:09 BP 146/80 H 12/09/23 14:09 Pulse Ox 96 12/09/23 14:09 Oxygen Delivery Method Room Air 12/09/23 14:09 BMI result Body Mass Index 34.1 Tobacco/Smoking Status: Tobacco use Status Tobacco use date assessed 12/09/23 12/09/23 14:12 Patient Tobacco Use Status Never used Tobacco 12/09/23 14:12 e-Cigarette/Vaping Use Never Used 12/09/23 14:12 PHQ-9: PHQ-9 Score PHQ-9: Total score 0 12/09/23 14:17 Depression Screening Interpretation: Negative Thrive Assessment: Date of Thrive Assessment Date Thrive assessed 12/09/23 12/09/23 14:12 Const General: cooperative, comfortable, no acute distress and alert Neck Neck: Yes no lymphadenopathy Thyroid: Thyroid normal Resp Effort & Inspection: normal respiratory effort Auscultation: clear to auscultation bilaterally Percussion: percussion normal Cardio Jugular venous distension: no JVD Palpation: normal PMI Rate: regular rate Rhythm: regular rhythm Heart sounds: S1 normal heart sound present and S2 normal heart sound present GI Inspection: Yes normal to inspection Palpation (GI): No hepatosplenomegaly present Skin General skin exam: no rashes or lesions noted Extrem General: Yes no clubbing, cyanosis or edema Assessment and Plan Assessment & Plan (1) UTI (urinary tract infection): Code(s): N39.0 - Urinary tract infection, site not specified Plan: rx sent (2) Type 2 diabetes mellitus with obesity: Code(s): E11.69 - Type 2 diabetes mellitus with other specified complication; E66.9 - Obesity, unspecified Medications: New sulfamethoxazole-trimethoprim 800-160 mg (Bactrim DS) 1 tab PO BID 10 tabs 0RF Coding Level of Care Code Est Pt Level 3 (71587) Diagnoses UTI (urinary tract infection) N39.0 Type 2 diabetes mellitus with obesity E11.69; E66.9
== END 2023-12-09 14:27 | disposition home or self-care (01) ==
PROVIDERS: PCP Internal Medicine; Visit Provider Internal Medicine
DX: E11.69 Type 2 diabetes mellitus with other specified complication (principal); N39.0 Urinary tract infection, site not specified; E66.9 Obesity, unspecified; Z68.34 Body mass index [BMI] 34.0-34.9, adult
CPT/HCPCS: 99213

== ENCOUNTER 2024-01-01 09:08 | Outpatient (REF) | payer MEDICARE, SELFPAY ==
[2024-01-01 10:06] LABS: Estimated Average Glucose 148 mg/dL; Hemoglobin A1c % 6.8 % (<6.0)
[2024-01-01 10:20] LABS: Cholesterol 133 mg/dL (<200); Glucose Fasting 125 mg/dL (60-99); HDL Cholesterol 36 mg/dL (>40); LDL Cholesterol Calculated 70 mg/dL (<100); Triglycerides 136 mg/dL (<150)
== END 2024-01-01 09:09 | disposition home or self-care (01) ==
LOC: HO.LAB 09:08
PROVIDERS: PCP Internal Medicine; Visit Provider Internal Medicine
DX: R73.9 Hyperglycemia, unspecified (principal); E78.5 Hyperlipidemia, unspecified
CPT/HCPCS: 36415; 80061; 82947; 83036

== ENCOUNTER 2024-01-05 10:29 | Outpatient (AMB) | payer MEDICARE, SELFPAY ==
[2024-01-05 10:31] VITALS: BP 158/72; PULSE 67; O2SAT 98; BMI 34.4
--- NOTE | 2024-01-05 10:31 | MHC.PC.OV ---
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: No Allergies No Known Allergies Allergy (Verified 01/05/24 10:31) Medication List - Last Reconciled 01/05/24 by Octaviano Scott MD amlodipine 2.5 mg PO DAILY atorvastatin 10 mg PO DAILY blood sugar diagnostic to check blood sugars twice a day blood-glucose meter ([employer] Ultra2 Meter) Use to check blood sugars twice a day fenofibrate 160 mg PO DAILY lancets ([employer] Delica Lancets) to use twice a day metformin 500 mg PO BID valsartan 320 mg PO DAILY Tobacco use date assessed: 01/05/24 Fall risk assessment: No Falls in past year Last assessed Fall Risk: 01/05/24 Dental Screening Dental Screen Date: 12/09/23 HPI 3 month follow up HPI Details HTN hyperlip and dm; doing well and compliant [facility] Medical History Hypertension Obesity Type 2 diabetes mellitus with obesity Diabetes mellitus Surgical History History of bladder surgery H/O rectal polypectomy History of cholecystectomy Family History Father Hodgkin disease Mother Medical history unknown Social History Housing: House Alcohol intake: current Alcohol intake frequency: a few times a week Patient Tobacco Use Status: Never used Tobacco e-Cigarette/Vaping Use: Never Used Second Hand Smoke Exposure: No service: No Current occupational status: retired Current occupational exposures/hazards: No Cognitive needs: No Hearing needs: No Vision needs: Yes Questionnaire Thrive Questionnaire Date Thrive assessed: 01/05/24 I am a: Patient What is your living situation today?: I have a steady place to live Within the past 12 months, did the food you bought not last and you didn't have the money to get more?: Never true Within the past 12 months, did you worry whether your food would run out before you got money to buy more?: Never true Do you have trouble paying for medicines?: No Do you have trouble getting transportation to medical appointments?: No Do you have trouble paying your heating and electricity bill?: No Do you have trouble taking care of your child, family member or friend?: No Do you have trouble with day-to-day activities such as bathing, preparing meals, shopping, managing finances, etc.?: No Are you currently unemployed and looking for a job?: No Are you interested in more education?: No Please select the resources that you would like help with: None Currently or been in a relationship where the following occur: no concerns reported THRIVE Score: 0 AUDIT C Alcohol Use Questionnaire (AUDIT-C) 1. How often do you have a drink containing alcohol?: Never Total Score: 0 Score Reviewed/Action Taken: Yes DALILA-7 AMB Questionnaire DALILA-7 Date DALILA - 7 assessed: 12/09/23 Source: Developed by Drs. Kaden Perea, Charlee Cerrato, Rylan Richter and colleagues, with an educational roxanne from [employer]. Review of Systems Const Denies chills, Denies headache(s) and Denies weight loss ENT Denies headache(s) Card Denies chest pain, Denies syncope, Denies irregular heart rhythm and Denies dyspnea Resp Denies chest congestion, Denies cough and Denies dyspnea GI Denies abdominal pain, Denies change in stool character, Denies nausea and Denies vomiting Musc Denies deformity and Denies joint swelling Neuro Denies syncope and Denies headache(s) Physical exam (Primary Care) Vital Signs: Last Vital Signs Pulse 67 01/05/24 10:31 BP 158/72 H 01/05/24 10:31 Pulse Ox 98 01/05/24 10:31 Oxygen Delivery Method Room Air 01/05/24 10:31 BMI result Body Mass Index 34.4 Tobacco/Smoking Status: Tobacco use Status Tobacco use date assessed 01/05/24 01/05/24 10:36 Patient Tobacco Use Status Never used Tobacco 01/05/24 10:31 e-Cigarette/Vaping Use Never Used 01/05/24 10:31 Thrive Assessment: Date of Thrive Assessment Date Thrive assessed 01/05/24 01/05/24 10:36 Currently or been in a relationship where the following occur: no concerns reported Const General: cooperative, comfortable, no acute distress and alert Neck Neck: Yes no lymphadenopathy Thyroid: Thyroid normal Resp Effort & Inspection: normal respiratory effort Auscultation: clear to auscultation bilaterally Percussion: percussion normal Cardio Jugular venous distension: no JVD Palpation: normal PMI Rate: regular rate Rhythm: regular rhythm Heart sounds: S1 normal heart sound present and S2 normal heart sound present GI Inspection: Yes normal to inspection Palpation (GI): No hepatosplenomegaly present Skin General skin exam: no rashes or lesions noted Extrem General: Yes no clubbing, cyanosis or edema Assessment and Plan Assessment & Plan (1) Hyperlipidemia: Code(s): E78.5 - Hyperlipidemia, unspecified Plan: stable; same rx (2) Hypertension: Code(s): I10 - Essential (primary) hypertension Plan: stable; same rx (3) Type 2 diabetes mellitus with obesity: Code(s): E11.69 - Type 2 diabetes mellitus with other specified complication; E66.9 - Obesity, unspecified Plan: stable; same rx Orders: Orders Complete Blood Count Auto Diff Today Z13.0 - Encounter for screening for diseases of the blood and blood-forming organs and certain disorders involving the immune mechanism Comprehensive Almond. Panel Fast Today Z13.9 - Encounter for screening, unspecified Thyroid Stimulating Hormone Today Z13.29 - Encounter for screening for other suspected endocrine disorder Lipid Panel Today Z13.220 - Encounter for screening for lipoid disorders Microalbumin, Random (w Creat) Today E11.69 - Type 2 diabetes mellitus with other specified complication, E66.01 - Morbid (severe) obesity due to excess calories Hemoglobin A1c Today R73.9 - Hyperglycemia, unspecified Coding Level of Care Code Est Pt Level 4 (87739) Diagnoses Hyperlipidemia E78.5 Hypertension I10 Type 2 diabetes mellitus with obesity E11.69; E66.9
== END 2024-01-05 10:53 | disposition home or self-care (01) ==
PROVIDERS: PCP Internal Medicine; Visit Provider Internal Medicine
DX: E78.5 Hyperlipidemia, unspecified (principal); I10 Essential (primary) hypertension; E11.9 Type 2 diabetes mellitus without complications
CPT/HCPCS: 99214

== ENCOUNTER 2024-02-07 10:42 | Outpatient (AMB) | payer MEDICARE, SELFPAY ==
[2024-02-07 12:39] VITALS: BP 146/68; PULSE 71; TEMP 36.7; O2SAT 97; BMI 33.7
--- NOTE | 2024-02-07 12:39 | MHC.OFFWIV ---
Intake Vital Signs 02/07/24 12:39 Height 5 ft 6 in Weight 209 lb BMI 33.7 BP 146/68 H Blood Pressure Location Lt brachial Position Sitting Pulse 71 Pulse Source Pulse Oximeter Temp 98.1 F Temp Source Oral Pulse Oximetry (%) 97 Oxygen Delivery Method Room Air Intake Visit Reasons: EP stomach pain nausea weakness heartbeat flutter Intake Note: Pt is here today c/o abdominal pain, nausea and heart flutter x3days Patient Tobacco Use Status: Never used Tobacco Allergies No Known Allergies Allergy (Verified 02/07/24 15:54) HPI EP stomach pain nausea weakness heartbeat flutter HPI Details Patient is a 74-year-old female with hyperlipidemia, hypertension, and diabetes mellitus history, who comes to the walk-in clinic complaining of about a week of intermittent chest pressure associated with palpitations, dizziness and weakness after a few weeks of abdominal discomfort, bloating, belching and distention, and nausea that began gradually after an apparent GI virus a few weeks ago. She reports she has had in the past and had a full workup about 2 years ago with an apparent unremarkable heart monitoring. She reports no cough or shortness of breath, weakness or dizziness, diarrhea, weight changes, fever or chills, syncope, back pain, urinary issues, or other significant associated symptoms PFSH Medical History Hypertension Obesity Type 2 diabetes mellitus with obesity Diabetes mellitus Surgical History History of bladder surgery H/O rectal polypectomy History of cholecystectomy Family History Father Hodgkin disease Mother Medical history unknown Social History Housing: House Alcohol intake: current Alcohol intake frequency: a few times a week Patient Tobacco Use Status: Never used Tobacco e-Cigarette/Vaping Use: Never Used Second Hand Smoke Exposure: No Do you have a plan to hurt others: No Plan service: No Current occupational status: retired Current occupational exposures/hazards: No Cognitive needs: No Hearing needs: No Vision needs: Yes Physical Exam Vital Signs: Last Vital Signs Temp 98.1 F 02/07/24 12:39 Pulse 71 05/18/24 12:39 BP 146/68 H 02/07/24 12:39 Pulse Ox 97 02/07/24 12:39 Oxygen Delivery Method Room Air 02/07/24 12:39 BMI result Body Mass Index 33.7 Const General: cooperative, no acute distress, alert, awake, Physically active, in distress and well groomed; No comfortable, anxious, diaphoretic, intoxicated appearing, poor hygiene or tired appearing Nutritional Appearance: obese Orientation/consciousness: patient oriented x3 Limitations: no limitations Eyes General: appearance normal, both eyes and all related structures Neck Neck: Yes normal visual inspection, Yes full ROM, Yes no lymphadenopathy, Yes trachea midline, Yes supple and No anterior neck swelling Chest Chest palpation & inspection: tenderness sternum Resp Effort & Inspection: normal respiratory effort, able to speak in complete sentences, no audible wheezes, no cough, no grunting, not labored, no nasal flaring, no retractions and symmetric chest movement Auscultation: clear to auscultation bilaterally, no crackles, no rales, no rhonchi, no wheezes, lung sounds not diminished and No rub present Cardio Palpation: normal PMI Rate: regular rate Rhythm: regular rhythm General: Yes no CVA tenderness Back/Spine/Pelvis Back: no CVA tenderness Thoracic/Lumbar Spine: No thoraco-lumbar spasm and No thoracic spinal tenderness Skin Other: Good color, warm and dry Neuro General: patient oriented x3 Psych Appearance: grossly normal Mental Status: mental status grossly normal Speech and movement: Normal speech and movement present Affect: normal affect Attitude: cooperative Thought process: Normal thought process present Insight: Good insight present (Psych) Judgement: Good judgement present (Psych) Results AMB Urinalysis, Automated UA Leukoctes 15 Joseph/uL Last Edit by Geno Lopez CMA on 02/07/24 14:00 UA Nitrite Negative Last Edit by Geno Lopez CMA on 02/07/24 14:00 UA Urobilinogen 0.2 mg/dL Last Edit by Geno Lopez CMA on 02/07/24 14:00 UA Protein 0 mg/dL Last Edit by Geno Lopez CMA on 02/07/24 14:00 UA pH 6.0 Last Edit by Geno Lopez CMA on 02/07/24 14:00 UA Blood 0 Emerson/uL Last Edit by Geno Lopez CMA on 02/07/24 14:00 UA Specific [place] 1.015 Last Edit by Geno Lopez CMA on 02/07/24 14:00 UA Ketone Negative Last Edit by Geno Lopez CMA on 02/07/24 14:00 UA Bilirubin 0 mg/dL Last Edit by Geno Lopez CMA on 02/07/24 14:00 UA Glucose 0 mg/dL Last Edit by Geno Lopez CMA on 02/07/24 14:00 Results Reviewed Results Reviewed: Laboratory Last Values Urine pH (Auto) 6.0 02/07/24 13:59 Specific [place] (Auto) 1.015 02/07/24 13:59 Urine Protein (Auto) 0 mg/dL 02/07/24 13:59 Glucose (UA)(Auto) 0 mg/dL 02/07/24 13:59 Urine Ketones (Auto) Negative 02/07/24 13:59 Urine Blood (Auto) 0 [place]/uL 02/07/24 13:59 Urine Nitrite (Auto) Negative 02/07/24 13:59 Urine Bilirubin (Auto) 0 mg/dL 02/07/24 13:59 Urine Urobilinogen (Auto) 0.2 mg/dL 02/07/24 13:59 Leukocyte Esterase (Auto) 15 Joseph/uL 02/07/24 13:59 Urinalysis in the office remarkable only for leukocytes Abdominal x-ray shows no obvious blockage Assessment & Plan Assessment & Plan (1) Chest pressure: Code(s): R07.89 - Other chest pain Plan Patient is a 74-year-old female with multiple comorbidities including diabetes mellitus, hyperlipidemia, obesity and hypertension. She has symptoms that could be associated with atypical chest pain of a cardiac etiology, including intermittent chest pressure, palpitations, dizziness and weakness, along persistent abdominal discomfort, bloating, left upper quadrant discomfort and bladder pressure. Her urine in the office was remarkable only for small leukocytes, but no obvious urinary symptoms. Abdominal x-ray shows no obvious blockage. While patient initially appeared stable, her chest pressure and palpitations reoccurred in the middle of her walk-in visit, and she appeared to be in mild distress. Her EKG at that time showed a sinus rhythm with nonspecific ST and T-wave changes, with no prior to compare available. Due to her symptoms possibly being cardiac related, I did advise her to get evaluated at the [facility] Emergency Department, which she was amenable to. Her family member agreed to transport her as the patient declined EMS transport. Expect was called in to the emergency department. Orders: Orders AMB Urinalysis Automated Today Z13.9 - Encounter for screening, unspecified UA CC w/rflx Micro + Cult Today R30.0 - Dysuria Coding Level of Care Code Est Pt Level 4 (76627) Diagnoses Chest pressure R07.89
== END 2024-02-07 15:20 | disposition home or self-care (01) ==
PROVIDERS: PCP Internal Medicine; Visit Provider Physician Assistant Medical
DX: R07.89 Other chest pain (principal); R39.89 Other symptoms and signs involving the genitourinary system
CPT/HCPCS: 81003; 93000; 99214

== ENCOUNTER 2024-02-07 13:58 | Outpatient (REF) | payer MEDICARE, SELFPAY ==
--- NOTE | ~2024-02-07 | XR_ITS ---
EXAMINATION: XR ABDOMEN COMPLETE CLINICAL INDICATION: Abdominal pain. COMPARISON: Abdominal ultrasound dated 10/03/2021. TECHNIQUE: AP views of the abdomen. FINDINGS: Nonobstructive bowel gas pattern. Right upper quadrant surgical clips. Vascular calcifications. No acute osseous abnormality. XR/XR abdomen min 2V IMPRESSION: Nonobstructive bowel gas pattern.
== END 2024-02-07 13:59 | disposition home or self-care (01) ==
LOC: HO.HMGCX 13:58
PROVIDERS: PCP Internal Medicine; Visit Provider Physician Assistant Medical
DX: Z13.89 Encounter for screening for other disorder (principal)
CPT/HCPCS: 74019

== ENCOUNTER 2024-02-07 15:24 | Outpatient (REF) | payer MEDICARE, SELFPAY ==
[2024-02-07 15:51] LABS: Appearance Urine Clear; Color Urine Yellow; Glucose Urine UA 100 mg/dL (Negative); Leukocyte Esterase Urine Small (1+) (Negative); Nitrite Urine Negative (Negative); PH 6.5 (5.0-9.0); UMIC TRIGGER UACC YES; Urine Blood Negative (Negative); Urine Ketones Negative (Negative); Urine Protein Negative (Neg-Trace)
[2024-02-07 16:18] LABS: Bacteria Urine None Seen (None Seen); Hyaline Casts Urine 0-2 /LPF (0-2); RBC Urine 0-2 /HPF (0-2); UACC Culture Trigger YES; WBC Urine 0-5 /HPF (0-5)
== END 2024-02-07 15:25 | disposition home or self-care (01) ==
LOC: HO.LNP 15:24
PROVIDERS: Visit Provider Physician Assistant Medical
DX: Z13.89 Encounter for screening for other disorder (principal)
CPT/HCPCS: 74019; 81001; 87086

== ENCOUNTER 2024-02-07 15:37 | Emergency (ER) | payer MEDICARE, SELFPAY ==
--- NOTE | 2024-02-07 | ECG_ITS ---
Test Reason : chest pain Blood Pressure : / mmHG Vent. Rate : 063 BPM Atrial Rate : 063 BPM P-R Int : 212 ms QRS Dur : 084 ms QT Int : 416 ms P-R-T Axes : 023 -31 004 degrees QTc Int : 425 ms Sinus rhythm with 1st degree A-V block Left axis deviation Minimal voltage criteria for LVH, may be normal variant ( R in aVL ) Nonspecific T wave abnormality Abnormal ECG When compared with ECG of 16-MAY-2022 15:16, No significant change was found Referred By: Generic ED Physician Electronically Signed By:HARDY MARIE MD
--- NOTE | ~2024-02-07 | XR_ITS ---
EXAMINATION: XR CHEST CLINICAL INFORMATION: Chest pain COMPARISON: X-ray 04/01/2018 TECHNIQUE: 2 views of the chest were obtained. FINDINGS: The cardiomediastinal silhouette is within normal limits. The lungs are well expanded. There is mild right basilar streaky opacities suggesting atelectasis. Otherwise, there is no focal consolidation, edema, or effusion. No pneumothorax. No acute osseous abnormality. XR/XR chest 2V IMPRESSION: Right basilar streaky opacities suggesting atelectasis versus early infiltrate. No acute findings otherwise seen.
--- NOTE | ~2024-02-07 | CT_ITS ---
EXAMINATION: CT ABDOMEN AND PELVIS WITH CONTRAST CLINICAL INFORMATION: Left-sided abdominal pain with question of diverticulitis COMPARISON: K[facility] earlier today, MRI pelvis 07/08/[address] abdomen pelvis 07/04/2011 TECHNIQUE: Multidetector volumetric images were obtained from the superior aspect of the liver through the pubic symphysis following administration 85 mL of Omnipaque 350 intravenous contrast. Sagittal and coronal reformatted images were obtained on the technologist's workstation. Oral contrast: No This CT examination was performed using dose optimization techniques as appropriate, variously including the following: *Automated exposure control *Adjustment of mA and/or kV according to patient size (this includes techniques or standardized protocols for targeted exams where dose is matched to indication/reason for exam; i.e. extremities or head) *Use of iterative reconstruction technique DLP: 736 mGy-cm FINDINGS: LUNG BASES: The visualized lung bases are unremarkable. LIVER, GALLBLADDER, AND BILIARY TREE: The liver is enlarged at 18.3 cm in greatest cephalocaudad dimension with decreased attenuation consistent with hepatic steatosis. There is a 0.8 cm hypoattenuating lesion at the tip of the right lobe of the liver as well as to other water density cysts. No other focal hepatic lesion or biliary ductal dilatation is present. Status post cholecystectomy. PANCREAS: Unremarkable. SPLEEN: Unremarkable. ADRENAL GLANDS: Unremarkable. KIDNEYS AND URETERS: The kidneys are normal in size, shape, and attenuation. A benign left mid renal 3.9 cm Bosniak class I renal cyst is noted which requires no additional imaging or follow up. No solid renal masses are seen. 2 mm calculus is seen at the upper pole of the left kidney with a 2 mm calculus also noted in the mid right kidney (8:50 and 107) No hydronephrosis, hydroureter, or ureteral calculi seen. No perinephric stranding. BLADDER: Bladder wall is thickened and somewhat nodular with pericholecystic mild inflammatory change. No bladder calculi. GASTROINTESTINAL TRACT: The small and large bowel are unremarkable aside from colonic diverticulosis with no evidence to suggest diverticulitis. The appendix is unremarkable. ABDOMINAL WALL: No significant hernia is appreciated. Tiny periumbilical hernia seen containing only fat. LYMPH NODES: No retroperitoneal lymphadenopathy. VASCULAR: Calcific atherosclerotic changes are present in the aorta and iliofemoral vessels. There is no evidence of an abdominal aortic aneurysm. PELVIC VISCERA: The uterus is not seen. An abnormal adnexal mass is not detected. No free intraperitoneal fluid is present. OSSEOUS STRUCTURES: Unremarkable. CT/CT abdomen pelvis w IV con IMPRESSION: 1. A definitive cause for the patient's abdominal pain has not been found. No evidence of diverticulitis 2. Bladder wall thickening with some mild associated inflammatory change can be seen with cystitis. Please correlate with urinalysis. 3. Incidental note made of an enlarged fatty liver, cholecystectomy, bilateral nonobstructing renal calculi, colonic diverticulosis without diverticulitis and other findings described above. Fleischner guidelines were followed.
--- NOTE | 2024-02-07 15:44 | ED_ITS ---
HPI - Abdominal Pain General Chief Complaint: Chest Pain Stated Complaint: Chest pain, sent from Time Seen by Provider: 02/07/24 21:08 History of Present Illness HPI narrative: Patient is a 74-year-old female presents today with having abdominal pain mainly over the left side of the last few days. Associated with no nausea no vomiting. Status post cholecystectomy and hysterectomy many years ago. History of bladder cancer many years ago currently not on chemo not on radiation. Patient thinks that the entire cancers gone. There has no pain on urination. Also has chest pressure. Patient claims the pressures been on and off for the last 5 hours. Has been mainly on for about 3 hours out of the 5. It is not associated with shortness of breath not associated with nausea not associated with diaphoresis. Patient denies having similar pains in the past. Positive history of pre diabetes positive history of hypertension, hypercholesterolemia. No history of smoking no history of ME. patient is from home. No stress test done in the past. No history of blood clots. Related Data Previous Rx's ?Medication ?Instructions ?Recorded blood-glucose meter ([employer] #1 ea 02/23/21 Ultra2 Meter) blood sugar diagnostic #50 ea 02/26/21 lancets 33 gauge (OneTouch Delica #100 ea 02/27/21 Lancets) valsartan 320 mg tablet 320 mg PO DAILY #90 tabs 05/20/23 atorvastatin 10 mg tablet 10 mg PO DAILY #90 tabs 06/15/23 fenofibrate 160 mg tablet 160 mg PO DAILY #90 tabs 07/06/23 metformin 500 mg tablet 500 mg PO BID #180 tabs 08/06/23 amlodipine 2.5 mg tablet 2.5 mg PO DAILY #90 tabs 12/31/23 cephalexin 500 mg capsule 500 mg PO Q8H 7 days #21 caps 02/07/24 Allergies Allergy/AdvReac Type Severity Reaction Status Date / Time No Known Allergies Allergy Verified 02/07/24 15:54 Review of Systems Review of Systems Positive pressure in the chest Yes all other systems are reviewed and are negative PMFSH Past Medical History Attestation statement: The following information was validated with the patient. Medical History Hypertension Obesity Type 2 diabetes mellitus with obesity Diabetes mellitus Surgical History History of bladder surgery H/O rectal polypectomy History of cholecystectomy Family History Family History Father Hodgkin disease Mother Medical history unknown Social History Social History Housing: House Alcohol intake: current Alcohol intake frequency: a few times a week Patient Tobacco Use Status: Never used Tobacco e-Cigarette/Vaping Use: Never Used Second Hand Smoke Exposure: No Advance Directives: No Advance Directives Information Provided: No Do you have a plan to hurt others: No Plan service: No Current occupational status: retired Current occupational exposures/hazards: No Cognitive needs: No Hearing needs: No Vision needs: Yes Physical Exam ED Vital Signs: Vital Signs - 24 hr 02/07/24 15:52 02/07/24 21:17 Temperature 96.8 F 98.0 F Pulse Rate 67 82 Respiratory Rate 20 16 Blood Pressure 148/68 H 173/79 H Pulse Oximetry 97 96 Oxygen Delivery Method Room Air Room Air BMI result Body Mass Index 32.3 Appearance: Alert. Oriented X3. No acute distress. Eyes: Pupils equal, round and reactive to light. ENT: Pharynx normal. Neck: Normal inspection. Neck supple. No lymph nodes noted. No crepitus CVS: Normal heart rate and rhythm. Pulses normal. Normal S1 and S2 Respiratory: No respiratory distress. Breath sounds normal. No Wheezing. No rales Abdomen: Soft and nontender. No rigidity. No distention. good BS x4 Skin: Skin warm and dry. Normal skin color. Normal skin turgor. Extremities: No lower extremity edema. Neurovascular intact to all extremities. No Lacerations. No Rash Neuro: Oriented X 3. No motor deficit. No sensory deficit. Moving all extermities. No slurred speech Course Course Course Narrative: This is a rapid medical exam. Deferred additional HPI, ROS, PE to primary provider. 74 yo female here with abdominal pain/distention/palpitations and chest pain coming from (Call from [facility]). Will need labs, EKG, CXR, UA -Erik RIVERA Medical Decision Making Medical Decision Making MDM Narrative: Well-appearing not acute distress. Patient has chest pressure along with left- sided abdominal pain. Abdominal exam is benign. My interpretation patient's EKG showed a sinus rhythm heart rate is 60 WA QRS QTC normal there is nonspecific T-wave flattening diffusely when compared to a previous EKG this is about the same. Patient's chest pressure is atypical. No risk factors for PE. Two sets of cardiac enzymes are negative. EKG and unchanged. Heart score is 3. Explained to patient the need for close follow-up. Patient states understanding. Wants to go home. Patient's urine shows a urinary tract infection. A dose of Rocephin was given. Patient's CT scan of the abdomen pelvis showed no evidence of diverticulitis. No evidence of obstruction no evidence of abscess no evidence of perforation. Will go ahead and discharge patient home on Keflex. In stable condition. Differential Diagnosis Differential Diagnoses: The differential diagnosis associated with the presentation includes Diverticulitis, kidney stone, UTI. ACS, reflux, pneumonia Admission/Observation Consideration of admission/observation: Escalation of care including admission/observation considered Lab Data MDM Lab Attestation statement: I reviewed the patient's lab results. 02/07/24 15:50 02/07/24 15:50 Labs: Lab Results 02/07/24 02/07/24 Range/Units 15:50 21:43 WBC 4.6 L (4.8-10.8) X10*3/uL RBC 4.90 (4.20-5.50) X10*6/uL Hgb 15.1 (12.0-16.0) g/dl Hct 43.3 (37.0-47.0) % MCV 88.4 (80.0-98.0) fL MCH 30.8 (27.0-33.0) pg MCHC 34.9 (31.0-35.0) g/dl RDW 12.3 (11.0-16.0) % Plt Count 196 (160-400) X10*3/uL MPV 10.0 (9.4-12.3) fL Immature Gran % (Auto) 0.2 (0.0-0.4) % Neut % (Auto) 64.9 (45-73) % Lymph % (Auto) 23.5 (20-40) % [place] % (Auto) 7.8 (2-11) % Eos % (Auto) 3.0 (0-4) % Baso % (Auto) 0.6 (0-2) % Lymph # (Auto) 1.1 L (1.2-4.9) X10*3/uL [place] # (Auto) 0.4 (0.1-1.2) X10*3/uL Eos # (Auto) 0.1 (0.0-0.4) X10*3/uL Baso # (Auto) 0.0 (0.0-0.2) X10*3/uL Abs Immat Gran (auto) 0.01 (0.00-0.03) X10*3/uL Absolute Neuts (auto) 3.0 (2.0-8.3) x10*3/uL Absolute Nucleated RBC 0.000 (0.0-0.012) X10*3/uL Nucleated RBC % (auto) 0.0 (0.0-0.2) /100WBC Sodium 142 (135-145) mmol/L Potassium 3.8 (3.3-5.1) mmol/L Chloride 105 (96-108) mmol/L Carbon Dioxide 26 (22-29) mmol/L Anion Gap 15 (12-20) BUN 13 (9-16) mg/dL Creatinine 0.71 (0.5-1.4) mg/dL Estim Creat Clear Calc 76.4 Estimated GFR > 60 Random Glucose 116 H (60-115) mg/dL Calcium 9.7 (8.4-10.2) mg/dL Magnesium 2.1 (1.6-2.6) mg/dL Total Bilirubin 0.8 (0.0-1.0) mg/dL Direct Bilirubin 0.3 (0.0-0.5) mg/dL AST 26 (5-31) U/L ALT 26 (0-31) U/L Alkaline Phosphatase 33 L (39-117) U/L Troponin I High Sens < 2.7 < 2.7 (<3.5-17.0) ng/L Total Protein 7.5 (6.5-8.0) g/dL Albumin 4.4 (3.5-5.0) g/dL Lipase 27 (8-78) U/L Urine Color Yellow Urine Appearance Hazy Urine pH 7.0 (5.0-9.0) Ur Specific [place] 1.020 (1.005-1.025) Urine Protein Negative (Neg-Trace) mg/dL Urine Glucose (UA) 100 H (Negative) mg/dL Urine Ketones Negative (Negative) mg/dL Urine Blood Trace (Negative) Urine Nitrite Negative (Negative) Ur Leukocyte Esterase Moderate (2+) H (Negative) Urine RBC 0-2 (0-2) /HPF Urine WBC >50 H (0-5) /HPF Ur Squamous Epith Cells 6-10 (0-2) /HPF Urine Bacteria Trace (None Seen) Hyaline Casts 0-2 (0-2) /LPF Independent Interpretation I performed an independent interpretation of an: EKG (Patient's EKG showed a sinus rhythm heart rate is 60 WA QRS QTC normal no acute ST segment elevation noted) and CT Scan (CT scan of the abdomen pelvis was grossly negative) Radiology Impression Discussion of test interpretation with radiology: I have reviewed the radiologist's reading. External Record Review External record reviewed: Office record Chronic Conditions Patient?s care impacted by: Diabetes (Pre diabetes) Medications Administered Discontinued Medications Generic Name Dose Route Start Last Admin Trade Name Freq PRN Reason Stop Dose Admin Aspirin 324 mg 02/07/24 21:25 02/07/24 21:43 Aspirin 81 Mg Tab.Chew PO 02/07/24 21:26 324 mg ONCE ONE Administration Ceftriaxone Sodium 1 gm/ 50 mls @ 100 mls/hr 02/07/24 22:05 02/07/24 23:03 Sodium Chloride IV 02/07/24 22:34 100 mls/hr ONCE ONE Administration Iohexol 100 ml 02/07/24 21:59 02/07/24 21:59 Iohexol 350 Mg/Ml 100 Ml Infus..Btl IV 02/07/24 22:00 85 ml ONCE ONE Administration Discharge Plan Discharge Clinical Impression: Chest pain, UTI (urinary tract infection) Patient Disposition: Home, Self-Care Instructions: Chest Pain (ED), Urinary Tract Infection in Older Adults (ED) Prescriptions: New cephalexin 500 mg capsule 500 mg PO Q8H 7 Days Qty: 21 0RF No Action (DME) blood-glucose meter [OneTouch Ultra2 Meter] Misc See Rx Instructions .ROUTE .MEDSUPPLY Qty: 1 0RF Rx Instructions: Use to check blood sugars twice a day (DME) blood sugar diagnostic Strip See Rx Instructions .ROUTE .MEDSUPPLY Qty: 50 8RF Rx Instructions: to check blood sugars twice a day (DME) lancets [OneTouch Delica Lancets] 33 gauge misc See Rx Instructions .ROUTE .MEDSUPPLY Qty: 100 8RF Rx Instructions: to use twice a day valsartan 320 mg tablet 320 mg PO DAILY Qty: 90 8RF atorvastatin 10 mg tablet 10 mg PO DAILY Qty: 90 8RF fenofibrate 160 mg tablet 160 mg PO DAILY Qty: 90 8RF metformin 500 mg tablet 500 mg PO BID Qty: 180 8RF amlodipine 2.5 mg tablet 2.5 mg PO DAILY Qty: 90 4RF Referrals: Octaviano Scott MD [Primary Care Provider] - 02/09/24 Jacob Melendez MD [Physician] - 02/09/24 Print Language: [place]
[2024-02-07 15:52] VITALS: BP 148/68; PULSE 67; RESP 20; TEMP 36; O2SAT 97; BMI 32.3
[2024-02-07 15:54] LABS: MANUAL DIFF FLAG NO
[2024-02-07 15:57] LABS: Basophils Percent Auto 0.6 % (0-2); Eosinophils Absolute Auto 0.1 X10*3/uL (0.0-0.4); Hematocrit 43.3 % (37.0-47.0); Hemoglobin 15.1 g/dl (12.0-16.0); Imm Gran Abs Auto 0.01 X10*3/uL (0.00-0.03); Imm Gran Pct Auto 0.2 % (0.0-0.4); Lymphocytes Absolute Auto 1.1 X10*3/uL (1.2-4.9); Lymphocytes Percent Auto 23.5 % (20-40); Mean Corpuscular HGB Conc 34.9 g/dl (31.0-35.0); Mean Corpuscular Hemoglobin 30.8 pg (27.0-33.0); Mean Corpuscular Volume 88.4 fL (80.0-98.0); Monocytes Absolute Auto 0.4 X10*3/uL (0.1-1.2); Monocytes Percent Auto 7.8 % (2-11); Neutrophils Percent Auto 64.9 % (45-73); Platelet Count 196 X10*3/uL (160-400); Red Cell Distribution Width 12.3 % (11.0-16.0); White Blood Count 4.6 X10*3/uL (4.8-10.8)
[2024-02-07 16:11] LABS: Alanine Aminotransferase 26 U/L (0-31); Albumin Level 4.4 g/dL (3.5-5.0); Alkaline Phosphatase 33 U/L (39-117); Anion Gap 15 (12-20); Aspartate Amino Transferase 26 U/L (5-31); Bilirubin Direct 0.3 mg/dL (0.0-0.5); Bilirubin Total 0.8 mg/dL (0.0-1.0); Blood Urea Nitrogen 13 mg/dL (9-16); Calcium 9.7 mg/dL (8.4-10.2); Carbon Dioxide 26 mmol/L (22-29); Chloride 105 mmol/L (96-108); Creatinine Clr Calc Pharmacy 76.4; Estimated Glomerular Filt Rate > 60; Glucose Random 116 mg/dL (60-115); Lipase 27 U/L (8-78); Magnesium 2.1 mg/dL (1.6-2.6); Potassium 3.8 mmol/L (3.3-5.1); Sodium 142 mmol/L (135-145); Total Protein 7.5 g/dL (6.5-8.0)
[2024-02-07 16:19] LABS: Troponin-I High Sensitivity < 2.7 ng/L (<3.5-17.0)
[2024-02-07 21:17] VITALS: BP 173/79; PULSE 82; RESP 16; TEMP 36.7; O2SAT 96
[2024-02-07] MEDS: Aspirin 81 MG TAB.CHEW 324 MG PO (21:43)
[2024-02-07 21:55] LABS: Appearance Urine Hazy; Color Urine Yellow; Glucose Urine UA 100 mg/dL (Negative); Leukocyte Esterase Urine Moderate (2+) (Negative); Nitrite Urine Negative (Negative); UMIC TRIGGER UACC YES; Urine Blood Trace (Negative); Urine Ketones Negative (Negative); Urine Protein Negative (Neg-Trace)
[2024-02-07] MEDS: iohexoL 350 MG/ML 100 ML INFUS..BTL IV (21:59)
[2024-02-07 22:04] LABS: Bacteria Urine Trace (None Seen); Hyaline Casts Urine 0-2 /LPF (0-2); RBC Urine 0-2 /HPF (0-2); UACC Culture Trigger YES; WBC Urine >50 /HPF (0-5)
[2024-02-07 22:24] LABS: Troponin-I High Sensitivity < 2.7 ng/L (<3.5-17.0)
[2024-02-07] MEDS: cefTRIAXone sodium 1 GM in 0.9 % Sodium Chloride 50 ML IV (23:03)
[2024-02-07 23:35] VITALS: BP 156/70; PULSE 65; RESP 16; TEMP 36.6; O2SAT 94
[2024-02-07 23:51] VITALS: BP 156/70; PULSE 65; RESP 16; TEMP 36.6; O2SAT 94
== END 2024-02-07 23:53 | disposition home or self-care (01) ==
PROVIDERS: Nurse Practitioner Family; Emergency Provider Emergency Medicine Emergency Medical Services; PCP Internal Medicine
DX: N39.0 Urinary tract infection, site not specified (principal); R07.9 Chest pain, unspecified; R10.9 Unspecified abdominal pain; E11.8 Type 2 diabetes mellitus with unspecified complications; I10 Essential (primary) hypertension; Z79.84 Long term (current) use of oral hypoglycemic drugs; Z79.899 Other long term (current) drug therapy
CPT/HCPCS: 36415; 71046; 74019; 74177; 80048; 80076; 81001; 83690; 83735; 84484; 85025; 87086; 93005; 96365; 99284; J0696; Q9967

== ENCOUNTER → 2024-02-07 15:41 | Outpatient (BNV) | payer MEDICARE, SELFPAY | PROVIDERS: Emergency Provider Emergency Medicine Emergency Medical Services; PCP Internal Medicine; Visit Provider Internal Medicine Cardiovascular Disease | DX: R07.9 Chest pain, unspecified (principal) | CPT/HCPCS: 93010 ==

== ENCOUNTER 2024-03-10 13:59 | Outpatient (AMB) | payer MEDICARE, SELFPAY ==
[2024-03-10 14:08] VITALS: BP 140/70; PULSE 65; O2SAT 95; BMI 33.6
--- NOTE | 2024-03-10 14:08 | A.OFFPC_ITS ---
Vital Signs 03/10/24 14:08 Height 5 ft 6 in Weight 208 lb BMI 33.6 BP 140/70 H Blood Pressure Location Lt brachial Position Sitting Pulse 65 Pulse Source Pulse Oximeter Pulse Oximetry (%) 95 Oxygen Delivery Method Room Air Int[place] [facility] [place], sent from Lubricator Granulator Required: No Control System Manager: Not Required per policy Accompanied by: Self / Same As Patient Allergies No Known Allergies Allergy (Verified 03/10/24 14:08) Medication List - Last Reconciled 03/11/24 by Octaviano Scott MD amlodipine 2.5 mg PO DAILY atorvastatin 10 mg PO DAILY blood sugar diagnostic to check blood sugars twice a day blood-glucose meter ([employer]. Ultra2 Meter) Use to check blood sugars twice a day cephalexin 500 mg PO Q8H 7 days dicyclomine 20 mg PO QID PRN fenofibrate 160 mg PO DAILY lancets ([employer] Delica Lancets) to use twice a day metformin 500 mg PO BID valsartan 320 mg PO DAILY Tobacco use date assessed: 01/05/24 Fall risk assessment: No Falls in past year Last assessed Fall Risk: 03/10/24 Dental Screening Dental Screen Date: 12/09/23 [place] [facility] [place] Chest pain, sent from HPI Details admitted with chest pressure and upper abd pain; intermittent for a month or so; w/u neg so far [facility] Medical History Hypertension Obesity Type 2 diabetes mellitus with obesity Diabetes mellitus Surgical History History of bladder surgery H/O rectal polypectomy History of cholecystectomy Family History Father Hodgkin disease Mother Medical history unknown Social History Housing: House Alcohol intake: current Alcohol intake frequency: a few times a week Patient Tobacco Use Status: Never used Tobacco e-Cigarette/Vaping Use: Never Used Second Hand Smoke Exposure: No service: No Current occupational status: retired Current occupational exposures/hazards: No Cognitive needs: No Hearing needs: No Vision needs: Yes Questionnaire Thrive Questionnaire Date Thrive assessed: 01/05/24 DALILA-7 AMB Questionnaire DALILA-7 Date DALILA - 7 assessed: 12/09/23 Source: Developed by Drs. Kaden Perea, Charlee Cerrato, Rylan Richter and colleagues, with an educational roxanne from [employer]. Review of Systems Const Denies chills, Denies headache(s) and Denies weight loss ENT Denies headache(s) Card Denies syncope, Denies irregular heart rhythm and Denies dyspnea Resp Denies chest congestion, Denies cough and Denies dyspnea GI Denies change in stool character, Denies nausea and Denies vomiting Musc Denies deformity and Denies joint swelling Neuro Denies syncope and Denies headache(s) Physical exam (Primary Care) Vital Signs: Last Vital Signs Pulse 65 03/10/24 14:08 BP 140/70 H 03/10/24 14:08 Pulse Ox 95 03/10/24 14:08 Oxygen Delivery Method Room Air 03/10/24 14:08 BMI result Body Mass Index 33.6 Tobacco/Smoking Status: Tobacco use Status Tobacco use date assessed 01/05/24 03/10/24 14:12 Patient Tobacco Use Status Never used Tobacco 03/10/24 14:12 e-Cigarette/Vaping Use Never Used 03/10/24 14:12 Thrive Assessment: Date of Thrive Assessment Date Thrive assessed 01/05/24 03/10/24 14:12 Const General: cooperative, comfortable, no acute distress and alert Neck Neck: Yes no lymphadenopathy Thyroid: Thyroid normal Resp Effort & Inspection: normal respiratory effort Auscultation: clear to auscultation bilaterally Percussion: percussion normal Cardio Jugular venous distension: no JVD Palpation: normal PMI Rate: regular rate Rhythm: regular rhythm Heart sounds: S1 normal heart sound present and S2 normal heart sound present GI Inspection: Yes normal to inspection Palpation (GI): No hepatosplenomegaly present Skin General skin exam: no rashes or lesions noted Extrem General: Yes no clubbing, cyanosis or edema Assessment and Plan Assessment & Plan (1) Chest pain: Code(s): R07.9 - Chest pain, unspecified Plan: ref cardiology (2) Abdominal pain: Code(s): R10.9 - Unspecified abdominal pain Plan: ref gi Orders: Orders Urine Culture 03/10/24 N39.0 - Urinary tract infection, site not specified Referrals Gastroenterology Referral R10.13 - Epigastric pain Cardiology Referral R07.89 - Other chest pain Medications: New dicyclomine 20 mg PO QID PRN 30 tabs 3RF abdominal pain Coding Level of Care Code Est Pt Level 3 (94616) Diagnoses Chest pain R07.9 Abdominal pain R10.9
== END 2024-03-10 14:34 | disposition home or self-care (01) ==
PROVIDERS: PCP Internal Medicine; Visit Provider Internal Medicine
DX: R07.9 Chest pain, unspecified (principal); R10.9 Unspecified abdominal pain
CPT/HCPCS: 99213

== ENCOUNTER 2024-04-22 13:42 | Outpatient (AMB) | payer MEDICARE, SELFPAY ==
--- NOTE | 2024-04-22 13:45 | MHC.OFFVIS ---
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 Allergies No Known Allergies Allergy (Verified 03/10/24 14:08) Medication List - Last Reconciled 04/22/24 by Richard Bautista MD amlodipine 2.5 mg PO DAILY atorvastatin 10 mg PO DAILY blood sugar diagnostic to check blood sugars twice a day blood-glucose meter ([employer] Ultra2 Meter) Use to check blood sugars twice a day dicyclomine 20 mg PO QID PRN fenofibrate 160 mg PO DAILY lancets ([employer] Delica Lancets) to use twice a day metformin 500 mg PO BID valsartan 320 mg PO DAILY HPI Comments Details: Thank you for referring Mercedes in cardiology consultation today for symptoms of chest pressure. She says she has been having the symptoms of chest pressure but they are mostly associated with fluttering and fast heart rate. No obvious diagnose as made. Recently she had come to the emergency room some abdominal discomfort and had chest pressure at that time. Her troponins and EKG were unremarkable. She was then subsequently discharged home. She has prior medical history of hypertension and hyperlipidemia. She also has borderline diabetes. Currently on metformin therapy. She does not have any symptoms with exertion although she says she can not exercise much related to leg discomfort. She says he has palpitation have been happening more frequently and she has associated chest pressure with it. No lightheadedness, syncope. No orthopnea, PND, leg edema. She is quite worried about the symptoms. [facility] Medical History (Updated 04/22/24 @ 14:44 by Richard Bautista MD) Hypertension Obesity Type 2 diabetes mellitus with obesity Diabetes mellitus Surgical History History of bladder surgery H/O rectal polypectomy History of cholecystectomy Family History Father Hodgkin disease Mother Medical history unknown Social History Housing: House Alcohol intake: current Alcohol intake frequency: a few times a week Patient Tobacco Use Status: Never used Tobacco e-Cigarette/Vaping Use: Never Used Second Hand Smoke Exposure: No service: No Current occupational status: retired Current occupational exposures/hazards: No Cognitive needs: No Hearing needs: No Vision needs: Yes Review of Systems Const Denies chills, Denies fatigue, Denies fever(s), Denies frequent falls, Denies weakness, Denies weight gain and Denies weight loss ENT Denies dizziness Card Denies chest pain, Denies leg edema, Denies lightheadedness, Denies palpitations, Denies dyspnea, Denies dyspnea on exertion, Denies orthopnea and Denies other (loss of consciousness) Resp Denies cough, Denies dyspnea and Denies dyspnea on exertion GI Denies hematochezia and Denies change in stool character Musc Denies abnormal gait, Denies muscle weakness, Denies numbness, Denies radiating pain into limb and Denies tingling Neuro Denies abnormal gait, Denies dizziness, Denies frequent falls, Denies numbness, Denies tingling and Denies weakness Endo Denies fatigue and Denies palpitations Physical Exam Vital Signs: Last Vital Signs Pulse 72 04/22/24 13:46 BP 120/74 04/22/24 13:46 BMI result Body Mass Index 33.4 Const General: cooperative, comfortable, no acute distress, alert and awake Nutritional Appearance: obese Orientation/consciousness: patient oriented x3 Limitations: no limitations HEENT Head: Yes normocephalic and Yes atraumatic Neck Neck: Yes trachea midline, Yes supple and Yes no JVD Resp Effort & Inspection: normal respiratory effort Auscultation: clear to auscultation bilaterally Cardio Jugular venous distension: no JVD Palpation: normal PMI Rate: regular rate Rhythm: regular rhythm Heart sounds: S1 normal heart sound present, S2 normal heart sound present, no click, no gallops, no murmurs, no rubs and Other heart sounds present (S4 present) GI Auscultation: normal bowel sounds Skin General skin exam: no rashes or lesions noted Neuro General: patient oriented x3 and no focal motor deficits Extrem General: Yes no clubbing, cyanosis or edema and Yes venous stasis dermatitis Psych Appearance: grossly normal Office Procedures EKG Details: EKG shows normal sinus rhythm with left anterior fascicular block with nonspecific ST T wave changes [id number], Complete Assessment & Plan Assessment & Plan (1) Chest pressure: Code(s): R07.89 - Other chest pain Category: Medical Plan: Recent onset episode of chest pressure along with rapid heart rate. My concern would be cardiac arrhythmias such as atrial fibrillation and/or SVT. Need to further assess for the same. Would suggest a 7 day Holter monitor as she is getting symptoms more frequently than that. Further treatment based on the findings. Given her multiple risk factors myocardial ischemia needs to be ruled out. Will suggest a vasodilating myocardial perfusion imaging. Also suggest echocardiogram to evaluate for cardiac structure and function especially biatrial chamber size. Will obtain all the test results and then will pursue follow-up after that to guide treatment. This was discussed with her. She understands agrees. Avoidance of stimulants was discussed. No pharmacotherapy is recommended till we establish diagnosis and this was discussed. Continue aggressive vascular risk factor modification. Blood pressure is currently well optimized. Target goal blood pressure less than 130/80. Diabetes under your care with goal hemoglobin A1c less than 7%. Target goal LDL less than 70 mg/dL. Will follow up in the clinic in 6 weeks time, sooner p.r.n.. Thank you for allowing me to partake in his care Coding Level of Care Code New Pt Level 4 (27438) Diagnoses Chest pressure R07.89 CPT Codes EKG - CPT: [id number]-[id number], Complete ([id number])
[2024-04-22 13:46] VITALS: BP 120/74; PULSE 72; BMI 33.4
== END 2024-04-22 14:40 | disposition home or self-care (01) ==
PROVIDERS: PCP Internal Medicine; Visit Provider Internal Medicine Cardiovascular Disease
DX: R07.89 Other chest pain (principal); I44.4 Left anterior fascicular block
CPT/HCPCS: 93010; 99214

== ENCOUNTER → 2024-04-22 13:42 | Outpatient (BNVA) | payer MEDICARE, SELFPAY | PROVIDERS: PCP Internal Medicine; Visit Provider Internal Medicine Cardiovascular Disease | DX: R07.89 Other chest pain (principal) | CPT/HCPCS: 93005; 99212 ==

== ENCOUNTER 2024-05-06 09:01 | Outpatient (REF) | payer MEDICARE, SELFPAY ==
[2024-05-06 09:12] LABS: MANUAL DIFF FLAG NO
[2024-05-06 09:52] LABS: Basophils Percent Auto 1.1 % (0-2); Eosinophils Absolute Auto 0.2 X10*3/uL (0.0-0.4); Eosinophils Percent Auto 4.6 % (0-4); Hematocrit 42.2 % (37.0-47.0); Hemoglobin 14.6 g/dl (12.0-16.0); Imm Gran Abs Auto 0.02 X10*3/uL (0.00-0.03); Imm Gran Pct Auto 0.5 % (0.0-0.4); Lymphocytes Absolute Auto 1.2 X10*3/uL (1.2-4.9); Lymphocytes Percent Auto 31.9 % (20-40); Mean Corpuscular HGB Conc 34.6 g/dl (31.0-35.0); Mean Corpuscular Hemoglobin 30.9 pg (27.0-33.0); Mean Corpuscular Volume 89.2 fL (80.0-98.0); Mean Platelet Volume 10.6 fL (9.4-12.3); Monocytes Absolute Auto 0.4 X10*3/uL (0.1-1.2); Monocytes Percent Auto 9.8 % (2-11); Neutrophils Absolute Auto 1.9 x10*3/uL (2.0-8.3); Neutrophils Percent Auto 52.1 % (45-73); Platelet Count 201 X10*3/uL (160-400); Red Blood Count 4.73 X10*6/uL (4.20-5.50); Red Cell Distribution Width 12.9 % (11.0-16.0); White Blood Count 3.7 X10*3/uL (4.8-10.8)
[2024-05-06 09:59] LABS: Estimated Average Glucose 146 mg/dL; Hemoglobin A1c % 6.7 % (<6.0)
[2024-05-06 10:28] LABS: Alanine Aminotransferase 25 U/L (0-31); Albumin Level 4.1 g/dL (3.5-5.0); Alkaline Phosphatase 28 U/L (39-117); Anion Gap 10 (12-20); Aspartate Amino Transferase 24 U/L (5-31); Bilirubin Total 0.8 mg/dL (0.0-1.0); Blood Urea Nitrogen 10 mg/dL (9-16); Calcium 9.2 mg/dL (8.4-10.2); Carbon Dioxide 30 mmol/L (22-29); Chloride 105 mmol/L (96-108); Cholesterol 127 mg/dL (<200); Estimated Glomerular Filt Rate > 60; Glucose Fasting 130 mg/dL (60-99); HDL Cholesterol 32 mg/dL (>40); LDL Cholesterol Calculated 68 mg/dL (<100); Potassium 4.3 mmol/L (3.3-5.1); Sodium 141 mmol/L (135-145); Triglycerides 138 mg/dL (<150)
[2024-05-06 10:48] LABS: Thyroid Stimulating Hormone 1.01 uIU/mL (0.32-4.0)
[2024-05-06 11:38] LABS: Creatinine Urine 68.84 mg/dL; Microalbum/Creatinine Ratio Ur 24.6 ug/mg cr (<30)
== END 2024-05-06 09:02 | disposition home or self-care (01) ==
LOC: HO.LAB 09:01
PROVIDERS: PCP Internal Medicine; Visit Provider Internal Medicine
DX: Z13.0 Encounter for screening for diseases of the blood and blood-forming organs and certain disorders involving the immune mechanism (principal); Z13.9 Encounter for screening, unspecified; E11.69 Type 2 diabetes mellitus with other specified complication; E66.01 Morbid (severe) obesity due to excess calories; R73.9 Hyperglycemia, unspecified; Z13.29 Encounter for screening for other suspected endocrine disorder; Z13.220 Encounter for screening for lipoid disorders
CPT/HCPCS: 36415; 80053; 80061; 82043; 82570; 83036; 84443; 85025

== ENCOUNTER 2024-05-10 09:17 | Outpatient (AMB) | payer MEDICARE, SELFPAY ==
[2024-05-10 09:21] VITALS: BP 150/80; PULSE 64; O2SAT 95; BMI 33.7
--- NOTE | 2024-05-10 09:21 | A.OFFPC_ITS ---
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: No Accompanied by: Self / Same As Patient Allergies No Known Allergies Allergy (Verified 05/10/24 09:22) Medication List - Last Reconciled 05/10/24 by Octaviano Scott MD amlodipine 2.5 mg PO DAILY atorvastatin 10 mg PO DAILY blood sugar diagnostic to check blood sugars twice a day blood-glucose meter ([employer] Ultra2 Meter) Use to check blood sugars twice a day dicyclomine 20 mg PO QID PRN fenofibrate 160 mg PO DAILY lancets ([email or web address] Delica Lancets) to use twice a day metformin 500 mg PO BID valsartan 320 mg PO DAILY Tobacco use date assessed: 01/05/24 Fall risk assessment: No Falls in past year Last assessed Fall Risk: 05/10/24 Dental Screening Dental Screen Date: 12/09/23 HPI Follow Up on Results HPI Details DM in good control; compliant [facility] Medical History (Updated 04/22/24 @ 14:44 by Richard Bautista MD) Hypertension Obesity Type 2 diabetes mellitus with obesity Diabetes mellitus Surgical History History of bladder surgery H/O rectal polypectomy History of cholecystectomy Family History Father Hodgkin disease Mother Medical history unknown Social History Housing: House Alcohol intake: current Alcohol intake frequency: a few times a week Patient Tobacco Use Status: Never used Tobacco e-Cigarette/Vaping Use: Never Used Second Hand Smoke Exposure: No service: No Current occupational status: retired Current occupational exposures/hazards: No Cognitive needs: No Hearing needs: No Vision needs: Yes Questionnaire PHQ-9 Over the last 2 weeks, how often have you been bothered by any of the following problems? 1. Little interest or pleasure in doing things: not at all 2. Feeling down, depressed, or hopeless: not at all 3. Trouble falling or staying asleep, or sleeping too much: not at all 4. Feeling tired or having little energy: not at all 5. Poor appetite or overeating: not at all 6. Feeling bad about yourself - or that you are a failure or have let yourself or your family down: not at all 7. Trouble concentrating on things, such as reading the newspaper or watching television: not at all 8. Moving or speaking so slowly that other people could have noticed. Or the opposite - being so fidgety or restless that you have been moving around a lot more than usual: not at all 9. Thoughts that you would be better off or of hurting yourself in some way: not at all Total score: 0 Depression Screening Interpretation: Negative Depression Screening Done: Yes 54745 - PHQ-9 Billing: Yes Source: Developed by Drs. Kaden Perea, Charlee Cerrato, Rylan Richter and colleagues, with an educational roxanne from [employer]. Thrive Questionnaire Date Thrive assessed: 01/05/24 AUDIT C Alcohol Use Questionnaire (AUDIT-C) 1. How often do you have a drink containing alcohol?: Never Total Score: 0 Score Reviewed/Action Taken: Yes DALILA-7 AMB Questionnaire DALILA-7 Date DALILA - 7 assessed: 12/09/23 Source: Developed by Drs. Kaden Perea, Charlee Cerrato, Rylan Richter and colleagues, with an educational roxanne from [employer]. Review of Systems Const Denies chills, Denies headache(s) and Denies weight loss ENT Denies headache(s) Card Denies chest pain, Denies syncope, Denies irregular heart rhythm and Denies dyspnea Resp Denies chest congestion, Denies cough and Denies dyspnea GI Denies abdominal pain, Denies change in stool character, Denies nausea and Denies vomiting Musc Denies deformity and Denies joint swelling Neuro Denies syncope and Denies headache(s) Physical exam (Primary Care) Vital Signs: Last Vital Signs Pulse 64 05/10/24 09:21 BP 150/80 H 05/10/24 09:21 Pulse Ox 95 05/10/24 09:21 Oxygen Delivery Method Room Air 05/10/24 09:21 BMI result Body Mass Index 33.7 Tobacco/Smoking Status: Tobacco use Status Tobacco use date assessed 01/05/24 05/10/24 09:28 Patient Tobacco Use Status Never used Tobacco 05/10/24 09:28 e-Cigarette/Vaping Use Never Used 05/10/24 09:28 PHQ-9: PHQ-9 Score PHQ-9: Total score 0 05/10/24 09:28 Depression Screening Interpretation: Negative Thrive Assessment: Date of Thrive Assessment Date Thrive assessed 01/05/24 05/10/24 09:28 Const General: cooperative, comfortable, no acute distress and alert Neck Neck: Yes no lymphadenopathy Thyroid: Thyroid normal Resp Effort & Inspection: normal respiratory effort Auscultation: clear to auscultation bilaterally Percussion: percussion normal Cardio Jugular venous distension: no JVD Palpation: normal PMI Rate: regular rate Rhythm: regular rhythm Heart sounds: S1 normal heart sound present and S2 normal heart sound present GI Inspection: Yes normal to inspection Palpation (GI): No hepatosplenomegaly present Skin General skin exam: no rashes or lesions noted Extrem General: Yes no clubbing, cyanosis or edema Assessment and Plan Assessment & Plan (1) Type 2 diabetes mellitus with obesity: Code(s): E11.69 - Type 2 diabetes mellitus with other specified complication; E66.9 - Obesity, unspecified Plan: stable; same rx Orders: Orders Glucose Fasting Today R73.9 - Hyperglycemia, unspecified Hemoglobin A1c Today R73.9 - Hyperglycemia, unspecified Lipid Panel Today Z13.220 - Encounter for screening for lipoid disorders Coding Level of Care Code Est Pt Level 3 (64794) Diagnoses Type 2 diabetes mellitus with obesity E11.69; E66.9
== END 2024-05-10 09:54 | disposition home or self-care (01) ==
PROVIDERS: PCP Internal Medicine; Visit Provider Internal Medicine
DX: E11.69 Type 2 diabetes mellitus with other specified complication (principal); E66.9 Obesity, unspecified; Z68.33 Body mass index [BMI] 33.0-33.9, adult
CPT/HCPCS: 99213

== ENCOUNTER → 2024-06-10 08:48 | Outpatient (REF) | payer MEDICARE, SELFPAY ==
--- NOTE | ~2024-06-10 | NM_ITS ---
Lexiscan Myocardial perfusion study Indication: Chest pressure to evaluate for myocardial ischemia Technique: The patient was brought in for a Lexiscan perfusion study on 06/10/2024 and was injected 0.4 mg of Lexiscan intravenously. Within a minute of this injection 30 mCi of sestamibi was given intravenously. Images were obtained using the SPECT gamma camera interlaced with the gating device. Images were obtained in supine position. Resting perfusion study was performed on 06/17/2024. Patient was administered 30 mCi of sestamibi intravenously at rest. Images were then obtained in supine position. Images obtained without without CT attenuation. Total DLP 103 mGy-cm. Images were processed with the software and compared side to side in short axis, horizontal long axis and vertical long axis views. Findings: The stress perfusion study showed nonattenuated images show moderate in density moderate-sized reduced uptake in the mid and basal lateral wall of the LV myocardium. Attenuation corrected images appears severe corrected.. The gated study shows normal LV systolic function with calculated LVEF of 60%. LV cavity is normal in size. The gated study shows normal systolic wall thickening and contraction of segments. Resting study shows nontender images show improved uptake in the basal and mid lateral wall of the LV myocardium. Gating at rest reveals normal systolic wall motion with ejection fraction at greater than 60%. The findings are consistent with moderate size moderate intensity reversible defect in the basal and mid lateral wall suggestive of ischemia.. NM/NM arianna perf SPECT rest & str Impression: 1. Myocardial perfusion imaging study shows moderate intensity ischemia in the basal and mid lateral wall circumflex/diagonal territory 2. Gated LVEF is 60% 3. Transient ischemic dilatation not present Nondiagnostic changes on EKG. Electronically signed by: Richard Bautista MD 06/17/2024 04:29 PM EDT
--- NOTE | 2024-06-10 08:58 | HM_ITS ---
* Total monitoring time 6 days. * Underlying rhythm is sinus with an average rate of 69/Min. * Frequent supraventricular ectopy with a burden of about 2%. Short runs noted. * Rare ventricular ectopy. * No significant pauses or high-grade AV blocks. * Patient markers used in association with sinus rhythm, sinus tachycardia, supraventricular ectopy, ventricular ectopy. * Symptoms in patient diary include palpitations, chest tightness, neck tightness, throat pressure, weakness. Associated with sinus rhythm, supraventricular ectopy. MTDD
--- NOTE | 2024-06-10 08:58 | CA_ITS ---
Acquisition Time: 2024-06-10 08:55:28 Total Exercise Time: 00:02:00 Test Indications: CP Medications: SEE H Protocol: LEXISCAN Max HR: 141 BPM 97% of Pred: 144 BPM Max BP: 164/088 mmHG Max Work Load: 1.0 METS Pharmacological stress test with Lexiscan injection while sitting and marching in place, with 6-7/10 chest pressure, with mild to moderate SOB, with isolated PACs, with normotensive response to injection, with nondiagnoisitic EKGs. Aminophylline 75mg IVP given to reverse Lexiscan. Chest pressure and breathing returned to baseine. Nuclear images pending. Test reviewed with Dr. Bautista Referred By: Richard Bautista Overread By: Bianca Butts
== END ==
LOC: HO.CARD 08:48
PROVIDERS: PCP Internal Medicine; Visit Provider Internal Medicine Cardiovascular Disease
DX: R07.89 Other chest pain (principal)
CPT/HCPCS: 78452; 93017; 93242; A9500; J0280; J2785

== ENCOUNTER → 2024-06-10 08:58 | Outpatient (BNV) | payer MEDICARE, SELFPAY | PROVIDERS: PCP Internal Medicine; Visit Provider Nurse Practitioner | DX: I47.10 Supraventricular tachycardia, unspecified (principal) | CPT/HCPCS: 78452; 93016; 93018; 93244 ==

== ENCOUNTER 2024-06-14 11:24 | Emergency (ER) | payer MEDICARE, SELFPAY ==
--- NOTE | ~2024-06-14 | XR_ITS ---
EXAMINATION: XR CHEST CLINICAL INFORMATION: Chest pain COMPARISON: February 07, 2024 TECHNIQUE: 2 views of the chest were obtained. FINDINGS: No significant abnormality is noted involving the heart, lungs, mediastinum, bony thorax or soft tissues. XR/XR chest 2V IMPRESSION: Unremarkable examination. Electronically signed by: Juilet Coy MD 06/14/2024 03:14 PM EDT RP
--- NOTE | 2024-06-14 11:26 | ECG_ITS ---
Test Reason : cp Blood Pressure : / mmHG Vent. Rate : 074 BPM Atrial Rate : 074 BPM P-R Int : 208 ms QRS Dur : 086 ms QT Int : 370 ms P-R-T Axes : 026 -33 006 degrees QTc Int : 410 ms Normal sinus rhythm with sinus arrhythmia Left axis deviation Moderate voltage criteria for LVH, may be normal variant ( R in aVL , [place] product ) Nonspecific T wave abnormality Abnormal ECG When compared with ECG of 07-FEB-2024 15:41, No significant change was found Referred By: Generic ED Physician Electronically Signed By:NEREIDA BROOKE
[2024-06-14 11:43] VITALS: BP 150/72; PULSE 73; RESP 18; TEMP 36.5; O2SAT 97; BMI 33.7
--- NOTE | 2024-06-14 11:43 | ED_ITS ---
HPI - General Adult General Chief complaint: Chest Pain Stated complaint: chest pain rapid heart beat Time Seen by Provider: 06/14/24 12:25 Source: patient Mode of arrival: ambulatory Limitations: no limitations History of Present Illness ED Provider: DR. Fuentes HPI narrative: 74-year-old female came in for evaluation of intermittent palpitation and chest pressure, patient had similar presentation few months ago the ER workup was unremarkable patient was sent for cardiology workup had Lexiscan stress test, official result was not reported by hazardous material technician but according to the tech report, patient developed shortness of breath and chest pressure with nonspecific EKG changes, patient also had Holter monitor for the past 7 days that she is scheduled to see Dr. Bautista in 2 days to review the results Still getting intermittent palpitation and chest pressure that is sometimes feel it in her throat. no shortness of breath, no dizziness. Related Data Previous Rx's ?Medication ?Instructions ?Recorded blood-glucose meter (Dynamic Social Network AnalysisTouch #1 ea 02/23/21 Ultra2 Meter) blood sugar diagnostic #50 ea 02/26/21 lancets 33 gauge (OneTouch Delica #100 ea 02/27/21 Lancets) valsartan 320 mg tablet 320 mg PO DAILY #90 tabs 05/20/23 atorvastatin 10 mg tablet 10 mg PO DAILY #90 tabs 06/15/23 fenofibrate 160 mg tablet 160 mg PO DAILY #90 tabs 07/06/23 metformin 500 mg tablet 500 mg PO BID #180 tabs 08/06/23 amlodipine 2.5 mg tablet 2.5 mg PO DAILY #90 tabs 12/31/23 dicyclomine 20 mg tablet 20 mg PO QID PRN abdominal pain 03/10/24 #30 tabs Allergies Allergy/AdvReac Type Severity Reaction Status Date / Time No Known Allergies Allergy Verified 06/14/24 11:46 Review of Systems 2 Review of Systems: all other systems are reviewed and are negative Constitutional: Reports as per HPI and Reports no additional constitutional complaints Eyes: Reports as per HPI and Reports no additional eye complaints Reports system reviewed and no additional complaints, except as documented Cardiovascular: Reports as per HPI and Reports no additional cardiovascular complaints Respiratory: Reports as per HPI and Reports no additional respiratory complaints Gastrointestinal: Reports as per HPI and Reports no additional gastrointestinal complaints Genitourinary: Reports no additional female genitourinary complaints Musculoskeletal: Reports no additional musculoskeletal complaints Skin/Breast: Reports system reviewed and no additional complaints, except as docu Psychiatric: Reports no additional psychiatric complaints Endocrine: Reports no additional endocrine complaints Hematologic/Lymphatic: Reports no additional hematologic/lymphatic complaints Allergic/Immunologic: Reports no additional allergic/immunologic complaints Reports system reviewed and no additional complaints, except as documented and Reports Abnormal speech present [facility] Past Medical History Medical History Hypertension Obesity Type 2 diabetes mellitus with obesity Diabetes mellitus Surgical History History of bladder surgery H/O rectal polypectomy History of cholecystectomy Family History Family History Father Hodgkin disease Mother Medical history unknown Social History Social History Housing: House Alcohol intake: current Alcohol intake frequency: a few times a week Patient Tobacco Use Status: Never used Tobacco e-Cigarette/Vaping Use: Never Used Second Hand Smoke Exposure: No Advance Directives: No Advance Directives Information Provided: Yes Do you have a plan to hurt others: No Plan service: No Current occupational status: retired Current occupational exposures/hazards: No Cognitive needs: No Hearing needs: No Vision needs: Yes Physical Exam ED Vital Signs: Vital Signs - 24 hr 06/14/24 11:43 Temperature 97.7 F Pulse Rate 73 Respiratory Rate 18 Blood Pressure 150/72 H Pulse Oximetry 97 Oxygen Delivery Method Room Air BMI result Body Mass Index 33.7 Vital signs have been reviewed and appear to be correct. Blood pressure elevated. Heart rate normal. Respiratory rate normal. Temperature normal. Oxygen saturation normal. Appearance: Alert. Oriented X3. No acute distress. Head: Normal external exam. Normocephalic. Atraumatic. No Corona signs noted. No raccoon eyes noted Eyes: PERRLA. EOMI. Conjunctiva and sclera normal. Eyelids normal. ENT: TM's Normal. Pharynx normal. Uvula midline. Moist mucous membranes. No trismus noted. No drooling noted. No muffled voice noted. Neck: Normal inspection. Neck supple. FROM. No adenopathy. Thyroid Normal. No meningeal signs. No neck mass noted. CVS: Normal heart rate and rhythm. Heart sound normal. No murmurs noted. Pulses normal throughout. Respiratory: No respiratory distress. Painless inspiration. Breath sounds normal. No wheezes/rales/rhonchi noted. Chest nontender. No accessory muscle usage noted or decreased air movement noted. Abdomen: Soft and nontender. Bowel sounds normal in all 4 quadrants. No distention noted. No organomegaly noted. No visible injury noted. Back: No CVA tenderness. Full range of motion noted. Skin: Skin warm and dry. Normal skin color. Normal skin turgor. No rashes/lesions/lacerations noted. Extremities: No lower extremity edema. Extremities exhibit normal range of motion. Extremities nontender. Neuro: Oriented X 3. Cranial nerve exam: II-XII are grossly intact No motor deficit. No sensory deficit. Reflexes normal. Course Course Course Narrative: RME performed by Blank Loera PA-C. Patient is a 74 year old assigned female at presenting to the emergency department with chest pressure / pain and palpitations. Patient states since 0530 this morning she has had pressure in her chest and palpitations. Patient states that she is currently wearing a holter monitor. Detailed physical exam and review of systems are deferred to the supervisor intermediates. EKG, labs, imaging, and swabs ordered. Charge nurse made aware. Reevaluation(s) Reevaluation #1: patient had 2 EKG you while she is symptomatic in the ED, EKG showed sinus arrhythmia with first-degree AV block, labs are unremarkable, no ACS. Atrial fibrillation never detected while she is in the emergency room, patient was instructed to follow up and keep her appointment with Dr. Bautista in 2 days. Time: 17:10 Medical Decision Making Differential Diagnosis Differential Diagnoses: The differential diagnosis associated with the presentation includes ( Dysrhythmia, ACS, pneumonia, pneumothorax, pleural effusion, CHF, electrolyte rash, severe anemia, anxiety.) Admission/Observation Consideration of admission/observation: Escalation of care including admission/observation considered Lab Data MDM Lab Attestation statement: I reviewed the patient's lab results. 06/14/24 12:07 06/14/24 12:07 Labs: Lab Results 06/14/24 06/14/24 Range/Units 12:07 15:14 WBC 3.9 L (4.8-10.8) X10*3/uL RBC 5.00 (4.20-5.50) X10*6/uL Hgb 15.3 (12.0-16.0) g/dl Hct 44.0 (37.0-47.0) % MCV 88.0 (80.0-98.0) fL MCH 30.6 (27.0-33.0) pg MCHC 34.8 (31.0-35.0) g/dl RDW 12.4 (11.0-16.0) % Plt Count 202 (160-400) X10*3/uL MPV 10.5 (9.4-12.3) fL Immature Gran % (Auto) 0.3 (0.0-0.4) % Neut % (Auto) 64.1 (45-73) % Lymph % (Auto) 22.6 (20-40) % [place] % (Auto) 7.3 (2-11) % Eos % (Auto) 4.4 H (0-4) % Baso % (Auto) 1.3 (0-2) % Lymph # (Auto) 0.9 L (1.2-4.9) X10*3/uL [place] # (Auto) 0.3 (0.1-1.2) X10*3/uL Eos # (Auto) 0.2 (0.0-0.4) X10*3/uL Baso # (Auto) 0.1 (0.0-0.2) X10*3/uL Abs Immat Gran (auto) 0.01 (0.00-0.03) X10*3/uL Absolute Neuts (auto) 2.5 (2.0-8.3) x10*3/uL Absolute Nucleated RBC 0.000 (0.0-0.012) X10*3/uL Nucleated RBC % (auto) 0.0 (0.0-0.2) /100WBC PT 12.8 H (10.9-12.4) SEC INR 1.1 (0.9-1.1) APTT 32.3 (26.0-36.8) SEC Sodium 141 (135-145) mmol/L Potassium 3.8 (3.3-5.1) mmol/L Chloride 107 (96-108) mmol/L Carbon Dioxide 25 (22-29) mmol/L Anion Gap 13 (12-20) BUN 12 (9-16) mg/dL Creatinine 0.80 (0.5-1.4) mg/dL Estim Creat Clear Calc 69.4 Estimated GFR > 60 Random Glucose 196 H (60-115) mg/dL Calcium 9.9 D (8.4-10.2) mg/dL Magnesium 2.0 (1.6-2.6) mg/dL Total Bilirubin 0.8 (0.0-1.0) mg/dL AST 22 (5-31) U/L ALT 24 (0-31) U/L Alkaline Phosphatase 40 (39-117) U/L Troponin I High Sens < 2.7 < 2.7 (<3.5-17.0) ng/L Total Protein 7.6 (6.5-8.0) g/dL Albumin 4.3 (3.5-5.0) g/dL Urine Color Yellow Urine Appearance Clear Urine pH 7.5 (5.0-9.0) Ur Specific [place] <= 1.005 (1.005-1.025) Urine Protein Negative (Neg-Trace) mg/dL Urine Glucose (UA) 500 H (Negative) mg/dL Urine Ketones Negative (Negative) mg/dL Urine Blood Negative (Negative) Urine Nitrite Negative (Negative) Ur Leukocyte Esterase Negative (Negative) Influenza Type A (PCR) NEGATIVE (Negative) Influenza Type B (PCR) NEGATIVE (Negative) RSV RNA Qual (PCR) NEGATIVE (Negative) SARS-CoV-2 RNA (RT-PCR) NEGATIVE (Negative) Independent Interpretation I performed an independent interpretation of an: EKG ( Sinus arrhythmia at 90 beats per minutes, prolonged AV interval, otherwise unremarkable intervals, left axis deviation.) and Plain X-Ray ( chest: Unremarkable examination.) Radiology Impression Discussion of test interpretation with radiology: I have reviewed the radiologist's reading. Discharge Plan Discharge Clinical Impression: Palpitation Patient Disposition: Home, Self-Care Instructions: Heart Palpitations (ED) Prescriptions: No Action (DME) blood-glucose meter [OneTouch Ultra2 Meter] Misc See Rx Instructions .ROUTE .MEDSUPPLY Qty: 1 0RF Rx Instructions: Use to check blood sugars twice a day (DME) blood sugar diagnostic Strip See Rx Instructions .ROUTE .MEDSUPPLY Qty: 50 8RF Rx Instructions: to check blood sugars twice a day (DME) lancets [OneTouch Delica Lancets] 33 gauge misc See Rx Instructions .ROUTE .MEDSUPPLY Qty: 100 8RF Rx Instructions: to use twice a day valsartan 320 mg tablet 320 mg PO DAILY Qty: 90 8RF atorvastatin 10 mg tablet 10 mg PO DAILY Qty: 90 8RF fenofibrate 160 mg tablet 160 mg PO DAILY Qty: 90 8RF metformin 500 mg tablet 500 mg PO BID Qty: 180 8RF amlodipine 2.5 mg tablet 2.5 mg PO DAILY Qty: 90 4RF dicyclomine 20 mg tablet 20 mg PO QID PRN (Reason: abdominal pain) Qty: 30 3RF Referrals: Octaviano Scott MD [Primary Care Provider] - Richard Bautista MD [Physician] - Print Language: Macedonian
[2024-06-14 12:12] LABS: MANUAL DIFF FLAG NO
[2024-06-14 12:14] LABS: Appearance Urine Clear; Color Urine Yellow; Glucose Urine UA 500 mg/dL (Negative); Leukocyte Esterase Urine Negative (Negative); Nitrite Urine Negative (Negative); PH 7.5 (5.0-9.0); Specific Gravity - Urine <= 1.005 (1.005-1.025); Urine Blood Negative (Negative); Urine Ketones Negative (Negative); Urine Protein Negative (Neg-Trace)
[2024-06-14 12:18] LABS: INTERNATIONAL NORM RATIO 1.1 (0.9-1.1); Prothrombin Time 12.8 SEC (10.9-12.4)
[2024-06-14 12:19] LABS: Basophils Absolute Auto 0.1 X10*3/uL (0.0-0.2); Basophils Percent Auto 1.3 % (0-2); Eosinophils Absolute Auto 0.2 X10*3/uL (0.0-0.4); Eosinophils Percent Auto 4.4 % (0-4); Hemoglobin 15.3 g/dl (12.0-16.0); Imm Gran Abs Auto 0.01 X10*3/uL (0.00-0.03); Imm Gran Pct Auto 0.3 % (0.0-0.4); Lymphocytes Absolute Auto 0.9 X10*3/uL (1.2-4.9); Lymphocytes Percent Auto 22.6 % (20-40); Mean Corpuscular HGB Conc 34.8 g/dl (31.0-35.0); Mean Corpuscular Hemoglobin 30.6 pg (27.0-33.0); Mean Platelet Volume 10.5 fL (9.4-12.3); Monocytes Absolute Auto 0.3 X10*3/uL (0.1-1.2); Monocytes Percent Auto 7.3 % (2-11); Neutrophils Absolute Auto 2.5 x10*3/uL (2.0-8.3); Neutrophils Percent Auto 64.1 % (45-73); Platelet Count 202 X10*3/uL (160-400); Red Cell Distribution Width 12.4 % (11.0-16.0); White Blood Count 3.9 X10*3/uL (4.8-10.8)
[2024-06-14 12:21] LABS: Partial Thromboplastin Time 32.3 SEC (26.0-36.8)
[2024-06-14 12:28] LABS: Alanine Aminotransferase 24 U/L (0-31); Albumin Level 4.3 g/dL (3.5-5.0); Alkaline Phosphatase 40 U/L (39-117); Anion Gap 13 (12-20); Aspartate Amino Transferase 22 U/L (5-31); Bilirubin Total 0.8 mg/dL (0.0-1.0); Blood Urea Nitrogen 12 mg/dL (9-16); Calcium 9.9 mg/dL (8.4-10.2); Carbon Dioxide 25 mmol/L (22-29); Chloride 107 mmol/L (96-108); Creatinine Clr Calc Pharmacy 69.4; Estimated Glomerular Filt Rate > 60; Glucose Random 196 mg/dL (60-115); Potassium 3.8 mmol/L (3.3-5.1); Sodium 141 mmol/L (135-145); Total Protein 7.6 g/dL (6.5-8.0)
[2024-06-14 12:37] LABS: Troponin-I High Sensitivity < 2.7 ng/L (<3.5-17.0)
--- NOTE | 2024-06-14 12:38 | ECG_ITS ---
Test Reason : PALPITATIONS Blood Pressure : / mmHG Vent. Rate : 090 BPM Atrial Rate : 090 BPM P-R Int : 216 ms QRS Dur : 084 ms QT Int : 372 ms P-R-T Axes : 038 -34 -24 degrees QTc Int : 455 ms Sinus rhythm with marked sinus arrhythmia with 1st degree A-V block Left axis deviation Minimal voltage criteria for LVH, may be normal variant ( R in aVL ) Nonspecific T wave abnormality Abnormal ECG When compared with ECG of 14-JUN-2024 11:27, Nonspecific T wave abnormality now evident in Lateral leads Referred By: Brandy Fuentes Electronically Signed By:NEREIDA BROOKE
[2024-06-14 13:02] LABS: Influenza A PCR NEGATIVE (Negative); Influenza B PCR NEGATIVE (Negative); Resp Syncy Virus RNA Qual PCR NEGATIVE (Negative); SARS COV2 PCR INHOUSE NEGATIVE (Negative)
[2024-06-14 15:42] LABS: Troponin-I High Sensitivity < 2.7 ng/L (<3.5-17.0)
[2024-06-14 17:28] VITALS: BP 145/72; PULSE 69; RESP 18; TEMP 36.5; O2SAT 95
== END 2024-06-14 17:29 | disposition home or self-care (01) ==
PROVIDERS: Physician Assistant Medical; Emergency Provider Emergency Medicine; PCP Internal Medicine
DX: R07.9 Chest pain, unspecified (principal); R06.02 Shortness of breath; I10 Essential (primary) hypertension; E11.9 Type 2 diabetes mellitus without complications; E66.9 Obesity, unspecified; Z68.33 Body mass index [BMI] 33.0-33.9, adult; Z03.818 Encounter for observation for suspected exposure to other biological agents ruled out; Z79.899 Other long term (current) drug therapy
CPT/HCPCS: 0241U; 36415; 71046; 80053; 81003; 83735; 84484; 85025; 85610; 85730; 93005; 99283; 99285

== ENCOUNTER 2024-06-16 10:30 | Outpatient (AMB) | payer MEDICARE, SELFPAY ==
[2024-06-16 10:48] VITALS: BP 130/68; PULSE 72; BMI 33.8
--- NOTE | 2024-06-16 10:48 | A.OFFVIS_ITS ---
Vital Signs 06/16/24 10:48 Height 5 ft 6 in Weight 209 lb 7.026 oz BMI 33.8 BP 130/68 Blood Pressure Location Lt brachial Position Sitting Pulse 72 Pulse Source Pulse Oximeter Intake Visit Reasons: 6wk follow up Allergies No Known Allergies Allergy (Verified 06/14/24 11:46) Medication List - Last Reconciled 06/16/24 by Richard Bautista MD amlodipine 2.5 mg PO DAILY atorvastatin 10 mg PO DAILY blood sugar diagnostic to check blood sugars twice a day blood-glucose meter (Zumigo Ultra2 Meter) Use to check blood sugars twice a day dicyclomine 20 mg PO QID PRN fenofibrate 160 mg PO DAILY lancets (HealcerionTouch Delica Lancets) to use twice a day metformin 500 mg PO BID omeprazole 20 mg PO QAM valsartan 320 mg PO DAILY HPI Comments Details: Mercedes comes for urgent follow-up visit. She presented emergency room 2 days ago because she was started having severe symptoms of palpitation starting the following night and the morning off. She says she could not tolerate the symptoms have therefore came to the emergency room. When she came to the emergency room symptoms were somewhat subsiding. EKGs shows sinus rhythm but shows short bursts of atrial tachycardia not sinus arrhythmia. She continues to have intermittent episodes symptoms but they have got better. She said the symptoms are very bothersome to her. She is currently wearing a Holter monitor and is about to drop it off today. She has not been able to complete her nuclear stress test. She is very worried about her symptoms. She takes all her medications. Denies any symptoms of heart failure. Denies any lightheadedness, syncope. [facility] Medical History Hypertension Obesity Type 2 diabetes mellitus with obesity Diabetes mellitus Surgical History History of bladder surgery H/O rectal polypectomy History of cholecystectomy Family History Father Hodgkin disease Mother Medical history unknown Social History Housing: House Alcohol intake: current Alcohol intake frequency: a few times a week Patient Tobacco Use Status: Never used Tobacco e-Cigarette/Vaping Use: Never Used Second Hand Smoke Exposure: No service: No Current occupational status: retired Current occupational exposures/hazards: No Cognitive needs: No Hearing needs: No Vision needs: Yes Review of Systems Const Denies weakness ENT Denies dizziness Card Denies chest pain, Denies chest pain with activity, Denies syncope, Denies rapid heart rate, Denies pedal edema, Denies edema, Denies leg edema, Denies lightheadedness, Denies palpitations, Denies dyspnea, Denies dyspnea on exertion and Denies orthopnea Resp Denies cough, Denies dyspnea and Denies dyspnea on exertion GI Denies hematochezia and Denies change in stool character Musc Denies abnormal gait, Denies muscle cramps, Denies muscle weakness, Denies numbness, Denies radiating pain into limb and Denies tingling Neuro Denies abnormal gait, Denies dizziness, Denies syncope, Denies numbness, Denies tingling and Denies weakness Endo Denies palpitations Physical Exam Vital Signs: Last Vital Signs Pulse 72 06/16/24 10:48 BP 130/68 06/16/24 10:48 BMI result Body Mass Index 33.8 Const General: cooperative, comfortable, no acute distress, alert and awake Nutritional Appearance: obese Orientation/consciousness: patient oriented x3 Limitations: no limitations HEENT Head: Yes normocephalic and Yes atraumatic Neck Neck: Yes trachea midline, Yes supple and Yes no JVD Resp Effort & Inspection: normal respiratory effort Auscultation: clear to auscultation bilaterally Cardio Jugular venous distension: no JVD Palpation: normal PMI Rate: regular rate Rhythm: regular rhythm Heart sounds: S1 normal heart sound present, S2 normal heart sound present, no click, no gallops, no murmurs, no rubs and Other heart sounds present (S4 present) GI Auscultation: normal bowel sounds Skin General skin exam: no rashes or lesions noted Neuro General: patient oriented x3 and no focal motor deficits Extrem General: Yes no clubbing, cyanosis or edema and Yes venous stasis dermatitis Psych Appearance: grossly normal Assessment & Plan Assessment & Plan (1) Atrial arrhythmia: Code(s): I49.8 - Other specified cardiac arrhythmias Category: Medical Plan: Patient highly symptomatic palpitations presented emergency room and was noted on EKG to have short bursts of atrial tachycardia. I am highly concerned about presence of atrial fibrillation causing her symptoms. This needs to be evaluated. She was wearing a Holter monitor during that time and will evaluate if there is any evidence of atrial fibrillation has treatment would be quite different especially in prevention of thromboembolic complication. Meanwhile given his highly symptomatic nature of her arrhythmias switch amlodipine to Cardizem therapy 120 mg daily. Avoidance of stimulants was discussed. Stress mitigation strategies were discussed. (2) Chest pressure: Code(s): R07.89 - Other chest pain Category: Medical Plan: Patient intermittent symptoms of chest pressure which are concerning. Advised to complete her myocardial perfusion imaging. Continue medical therapy. Will add Cardizem therapy for control of her arrhythmias as well as possibly as an antianginal agent. Continue aggressive blood pressure control. Further treatment based on the findings of myocardial perfusion imaging. (3) Hypertension: Code(s): I10 - Essential (primary) hypertension Category: Medical Plan: Hypertension, currently optimized. Switching amlodipine to Cardizem therapy to control her atrial arrhythmias symptoms. Continue valsartan therapy. Goal blood pressure less than 130/84. Low-salt diet was discussed. Continue aggressive management diabetes. Follow up in the clinic in 4 weeks time, sooner p.r.n.. Thank you for allowing me to partake in his Medications: New diltiazem HCl CD (Cardizem CD) 120 mg PO DAILY 30 caps 5RF Discontinued amlodipine Discontinued Reason: Doctor's Order 2.5 mg PO DAILY 90 tabs 4RF Coding Level of Care Code Est Pt Level 4 (13491) Diagnoses Atrial arrhythmia I49.8 Chest pressure R07.89 Hypertension I10
== END 2024-06-16 11:18 | disposition home or self-care (01) ==
PROVIDERS: PCP Internal Medicine; Visit Provider Internal Medicine Cardiovascular Disease
DX: I49.8 Other specified cardiac arrhythmias (principal); R07.89 Other chest pain; I10 Essential (primary) hypertension
CPT/HCPCS: 99214

== ENCOUNTER → 2024-06-16 10:30 | Outpatient (BNVA) | payer MEDICARE, SELFPAY | PROVIDERS: PCP Internal Medicine; Visit Provider Internal Medicine Cardiovascular Disease | DX: I49.8 Other specified cardiac arrhythmias (principal); I10 Essential (primary) hypertension; R07.89 Other chest pain | CPT/HCPCS: 99212 ==

== ENCOUNTER 2024-06-18 00:04 | Emergency (ER) | payer MEDICARE, SELFPAY ==
--- NOTE | 2024-06-18 | ECG_ITS ---
Test Reason : chest pain Blood Pressure : / mmHG Vent. Rate : 076 BPM Atrial Rate : 076 BPM P-R Int : 192 ms QRS Dur : 082 ms QT Int : 380 ms P-R-T Axes : -14 -33 -19 degrees QTc Int : 427 ms Normal sinus rhythm Left axis deviation Minimal voltage criteria for LVH, may be normal variant ( R in aVL ) Nonspecific ST and T wave abnormality Abnormal ECG When compared with ECG of 14-JUN-2024 12:40, No significant change was found Referred By: Generic ED Physician Electronically Signed By:NEREIDA BROOKE
[2024-06-18 00:15] VITALS: BP 120/75; PULSE 80; RESP 20; TEMP 36.7; O2SAT 98; BMI 33.1
[2024-06-18 00:43] LABS: Basophils Percent Auto 0.7 % (0-2); Eosinophils Absolute Auto 0.2 X10*3/uL (0.0-0.4); Eosinophils Percent Auto 3.9 % (0-4); Hemoglobin 14.8 g/dl (12.0-16.0); Imm Gran Abs Auto 0.02 X10*3/uL (0.00-0.03); Imm Gran Pct Auto 0.4 % (0.0-0.4); Lymphocytes Absolute Auto 1.8 X10*3/uL (1.2-4.9); Lymphocytes Percent Auto 31.2 % (20-40); MANUAL DIFF FLAG NO; Mean Corpuscular HGB Conc 35.2 g/dl (31.0-35.0); Mean Corpuscular Hemoglobin 30.8 pg (27.0-33.0); Mean Corpuscular Volume 87.3 fL (80.0-98.0); Mean Platelet Volume 10.2 fL (9.4-12.3); Monocytes Absolute Auto 0.6 X10*3/uL (0.1-1.2); Monocytes Percent Auto 10.5 % (2-11); Neutrophils Percent Auto 53.3 % (45-73); Platelet Count 214 X10*3/uL (160-400); Red Blood Count 4.81 X10*6/uL (4.20-5.50); Red Cell Distribution Width 12.3 % (11.0-16.0); White Blood Count 5.6 X10*3/uL (4.8-10.8)
[2024-06-18 01:02] LABS: Alanine Aminotransferase 25 U/L (0-31); Albumin Level 4.1 g/dL (3.5-5.0); Alkaline Phosphatase 37 U/L (39-117); Anion Gap 13 (12-20); Aspartate Amino Transferase 22 U/L (5-31); Bilirubin Total 0.6 mg/dL (0.0-1.0); Blood Urea Nitrogen 13 mg/dL (9-16); Carbon Dioxide 22 mmol/L (22-29); Chloride 108 mmol/L (96-108); Estimated Glomerular Filt Rate > 60; Glucose Random 153 mg/dL (60-115); Potassium 3.9 mmol/L (3.3-5.1); Sodium 139 mmol/L (135-145); Total Protein 7.2 g/dL (6.5-8.0)
[2024-06-18 01:08] LABS: Troponin-I High Sensitivity < 2.7 ng/L (<3.5-17.0)
--- OUTSIDE RECORDS SUMMARY | 2024-06-18 01:29 | XMS_ITS | Patient Health Record ---
Author Organization [facility] Address [address] [place] [address] Care Team Providers Care Ehr Trainer Name Role Phone Sonia ZAMORA, Octaviano Primary Care Provider Kaden Arthur Unavailable [phone] ALLERGIES No Known Allergies REASON FOR REFERRAL No Information MEDICATIONS Medication SIG (Take, Route, Frequency, Duration) Notes Start Date End Date Status Omeprazole 20 MG 1 Orally Once a day every morning for 30 day(s) 05/19/2024 Active Atorvastatin Calcium 10 MG Oral for 90 Active Fenofibrate 160 MG Oral for 90 Active amLODIPine Besylate 2.5 MG Oral for 90 Active Valsartan 320 MG TAKE ONE TABLET BY M OUTH EVERY DAY Oral for 90 Active metFORMIN HCl 500 MG Oral for 90 Active IMMUNIZATIONS Vaccine Route Administration Date Status Comme nts Influenza Unknown 08/12/2023 Administered SOCIAL HISTORY Tobacco Use: Social History Observation Description Date Details (start date - stop date) Never Smoker NA - NA Sex Assigned At : Social History Observation Description Sex Assigned At Unknown Tobacco Use/Smoking Question Answer Notes Patient is a nonsmoker Alcohol Screen Question Answer Notes Did you have a drink contain ing alcohol in the past year? Yes How often did you have a dri nk containing alcohol in the past year? 2 to 4 times a month (2 points) How many drinks did you have on a typical day when you were drinking in the past year? 1 or 2 drinks (0 point) How often did you have 6 or more drinks on one occasion in the past year? Never (0 point) Points 2 Interpretation Negative PROBLEMS Problem Type ICD Code Onset Dates Problem Status W/U Status Risk SNOMED Code Notes Problem Abdominal pain, epigastric (R10.13) Active confirmed Epigastric pain (18727984) Problem Colon cancer screening (Z12.11) Active confirmed Colon cancer screening (227983268) VITAL SIGNS Temperature 97.1 degrees Fahrenheit 05/19/2024 Blood pressure diastolic 00 mm Hg 05/19/2024 Height 5 ft 6 in in 05/19/2024 Blood pressure systolic 000 mm Hg 05/19/2024 Weight 209 lb 8 oz lbs 05/19/2024 BMI 33.81 kg/m2 05/19/2024 Encounters Encounter Location Date Provider Diagnosis [facility] [address] [place] [address] 05/19/2024 Kaden Artis Abdominal pain, epigastric R10.13 and Colon cancer screening Z12.11 ASSESSMENTS Encounter Date Diagnosis Assessment Notes Treatment Notes Treatment Clinical Notes 05/19/2024 Colon cancer screening (ICD-10 - Z12.11) Needs cardiology clearance from Dr. Bautista after her workup and visit with him at the end of May,.. 05/19/2024 Abdominal pain, epigastric (ICD-10 - R10.13) Do not take Metformin the night before or on the morning of the procedures Try the Dicyclomine as needed for the discomfort. If that doesn't work then brain picker the Omeprazole prescription I will be sending over PLAN OF TREATMENT Future Test Test Name Order Date UPPER GI ENDOSCOPY 05/19/2024 COLONOSCOPY 05/19/2024 Next Appt Details Provider Name:Kaden Artis , 08/25/2024 11:30:00 AM, [address] [place] [address] , [place], [place], [id number], Insurance Providers Payer Name Payer Address Payer Phone Subscriber Number Group Number Insured Name Patient Relationship to Insured Coverage Start Date Coverage End Date [facility] [address] [place] [address] [id number] [employer]OLL Self - patient is the insured MEDICAL (GENERAL) HISTORY Medical History History ICD Code NIDDM Denies NH,CVA,Lung disease,renal disease Hyperlipdemia HTN ETT on 06/10/[address] Bautista Bladder cancer as below Surgical History Surgery Date(Month/Year) CCY 1999 Bladder cancer--cystoscopy 2010 JUSTIN 2019
--- OUTSIDE RECORDS SUMMARY | 2024-06-18 01:29 | XMS_ITS ---
Author Organization [facility] Address [address] [place] [address] Care Team Providers Care Pole Cutter Name Role Phone Octaviano Scott MD Primary Care Provider Kaden Arthur Unavailable [phone] ALLERGIES No Known Allergies REASON FOR VISIT Patient presents today for epigastric pain MEDICATIONS Medication SIG (Take, Route, Frequency, Duration) Notes Start Date End Date Status Omeprazole 20 MG 1 Orally Once a day every morning for 30 day(s) 05/19/2024 Active Fenofibrate 160 MG Oral for 90 Active amLODIPine Besylate 2.5 MG Oral for 90 Active Valsartan 320 MG TAKE ONE TABLET BY M OUTH EVERY DAY Oral for 90 Active metFORMIN HCl 500 MG Oral for 90 Active Atorvastatin Calcium 10 MG Oral for 90 Active SOCIAL HISTORY Tobacco Use: Social History Observation [...] pain, epigastric (R10.13) Active confirmed Epigastric pain (81315597) Problem Colon cancer screening (Z12.11) Active confirmed Colon cancer screening (170895903) VITAL SIGNS BMI 33.81 kg/m2 05/19/2024 Blood pressure systolic 000 mm Hg 05/19/20 Blood pressure diastolic 00 mm Hg 024 Height 5 ft 6 in in 05/19/2024 Temperature 97.1 degrees Fahrenheit 05/19/20 Weight 209 lb 8 oz lbs 05/19/2024 Encounters Encounter Location Date Provider Diagnosis [facility] [address] [place] [address] 05/19/2024 Kaden Artis Abdominal pain, epigastric R10.13 and Colon cancer screening Z12.11 ASSESSMENTS Encounter Date Diagnosis Assessment Notes Treatment Notes Treatment Clinical Notes 05/19/2024 Abdominal pain, epigastric (ICD-10 - R10.13) Do not take Metformin the night before or on the morning of the procedures Try the Dicyclomine as needed for the discomfort. If that doesn't work then slate picker the Omeprazole prescription I will be sending over 05/19/2024 Colon cancer screening (ICD-10 - Z12.11) Needs cardiology clearance from Dr. Bautista after her workup and visit with him at the end of May,.. PLAN OF TREATMENT Medication Medication Name Sig Start Date Stop Date Notes Omeprazole 20 MG 1 Orally Once a day every morning for 30 day(s) 05/19/2024 Treatment Notes Assessment Notes Abdominal pain, epigastric Do not take Metformin the night before or on the morning of the procedures Try the Dicyclomine as needed for the discomfort. If that doesn't work then slate picker the Omeprazole prescription I will be sending over Colon cancer screening Needs cardiology clearance from Dr. Bautista after her workup and visit with him at the end of May,.. Future Test Test Name Order Date UPPER GI ENDOSCOPY 05/19/2024 COLONOSCOPY 05/19/2024 Next Appt Details Follow Up: prn, Reason: Provider Name:Kaden Artis , 08/25/2024 11:30:00 AM, [address] [place] [address] , [place], [place], [phone], Progress Notes * Examination Category Sub-Category Detail Notes General Examination GENERAL APPEARANCE: pleasant , well nourished, well developed, in no acute distress HEAD: EYES: sclera non-icteric EARS: NOSE: THROAT: NECK/THYROID: no cervical lymphade nopathy, neck supple HEART: S1, S2 normal CHEST: LUNGS: clear to auscultatio n bilaterally ABDOMEN: normal bowel sounds, no guarding or rigidity, no guarding or rigidity, no masses palpable, soft, nontender, nondistended NEUROLOGIC: alert and oriented SKIN: nonjaundiced, no spi jan angiomata EXTREMITIES: no edema PERIPHERAL PULSES: BACK: BREASTS: MUSCULOSKELETAL: MALE GENITOURINARY: LYMPH NODES: RECTAL EXAM: FEMALE GENITOURINARY: ORAL CAVITY: mucosa moist
--- NOTE | 2024-06-18 01:32 | MHC.EDTECH ---
Patient was brought in from the waiting room,oncology techniciananushka Woods assisted with changing the patient over into hospital attire and placing pt on the athletic monitor,call pike in reach
--- NOTE | 2024-06-18 01:35 | ED_ITS ---
HPI - Chest Pain General Chief Complaint: Chest Pain Stated Complaint: chest pain Time Seen by Provider: 06/18/24 01:35 History of Present Illness ED Provider: Lorrie JENKINS narrative: Patient is a 74-year-old female who has been having problems with episodes of chest discomfort for a few months. She was seen here 4 days ago on Friday for chest symptoms and was felt to have palpitations. She has also recently been seen by Cardiology for this problem. She has had a Holter monitor and a Lexiscan done. The Lexiscan results were available yesterday and suggest reversible ischemia. She is currently scheduled to have a cardiac catheterization soon. She was prescribed diltiazem yesterday. She was told that if she has any worsening chest discomfort she should return to the emergency room. The patient says that she had episodes of chest discomfort this evening. The episodes are similar to the previous episode she has had. She describes the episodes as brief, less than a minute. She estimates she might have had as many as 12 episodes this evening before coming to the emergency room. No shortness of breath. No diaphoresis. No nausea. Related Data Home Medications ?Medication ?Instructions ?Recorded ?Confirmed omeprazole 20 mg capsule,delayed 20 mg PO QAM 06/16/24 06/16/24 release Previous Rx's ?Medication ?Instructions ?Recorded blood-glucose meter (WindStream TechnologiesTouch #1 ea 02/23/21 Ultra2 Meter) blood sugar diagnostic #50 ea 02/26/21 lancets 33 gauge (OneTouch Delica #100 ea 02/27/21 Lancets) valsartan 320 mg tablet 320 mg PO DAILY #90 tabs 05/20/23 atorvastatin 10 mg tablet 10 mg PO DAILY #90 tabs 06/15/23 fenofibrate 160 mg tablet 160 mg PO DAILY #90 tabs 07/06/23 metformin 500 mg tablet 500 mg PO BID #180 tabs 08/06/23 dicyclomine 20 mg tablet 20 mg PO QID PRN abdominal pain 03/10/24 #30 tabs diltiazem HCl 120 mg 120 mg PO DAILY #30 caps 06/16/24 capsule,extended release 24 hr (Cardizem CD) isosorbide mononitrate 30 mg 30 mg PO DAILY #30 tabs 06/17/24 tablet,extended release 24 hr Allergies Allergy/AdvReac Type Severity Reaction Status Date / Time No Known Allergies Allergy Verified 06/18/24 01:08 Review of Systems 2 Review of Systems: Yes all other systems are reviewed and are negative [facility] Past Medical History Medical History Hypertension Obesity Type 2 diabetes mellitus with obesity Diabetes mellitus Surgical History History of bladder surgery H/O rectal polypectomy History of cholecystectomy Family History Family History Father Hodgkin disease Mother Medical history unknown Social History Social History Housing: House Alcohol intake: current Alcohol intake frequency: a few times a week Patient Tobacco Use Status: Never used Tobacco Smoked in Last 30 Days: No e-Cigarette/Vaping Use: Never Used Second Hand Smoke Exposure: No Use of substances other than those prescribed or required for medical reasons: No Advance Directives: No Advance Directives Information Provided: No service: No Current occupational status: retired Current occupational exposures/hazards: No Cognitive needs: No Hearing needs: No Vision needs: Yes Physical Exam 2 Vital Signs: Vital Signs: Last Vital Signs Temp 98.0 F 06/18/24 03:44 Pulse 75 06/18/24 03:44 Resp 18 06/18/24 03:44 BP 178/81 H 06/18/24 03:44 Pulse Ox 98 06/18/24 03:44 O2 Del Method Room Air 06/18/24 03:44 BMI result Body Mass Index 33.1 Const: Other: The patient is a 74-year-old female who was awake and alert. She does not seem in obvious distress. HEENT: Other: Face is symmetrical, mucous membranes moist. Eyes: General: appearance normal, both eyes and all related structures Neck: Neck: Yes no JVD Resp: Effort & Inspection: normal respiratory effort Auscultation: clear to auscultation bilaterally Cardio: Rate: regular rate Rhythm: regular rhythm Heart sounds: S1 normal heart sound present and S2 normal heart sound present GI: Other: Abdomen is soft and nontender Skin: Other: Skin is dry and unremarkable Neuro: Other: The patient is awake and alert with a normal mental status. Cranial nerves are intact. She moves her extremities normally and seems grossly neurologically intact. Extrem: Other: No calf swelling or tenderness. No edema. No asymmetry. Medical Decision Making Medical Decision Making [facility] Narrative: The patient is a 74-year-old female who has been having problems with episodes of chest pains for the last couple of months. She recently had a nuclear stress test that suggested possible reversible ischemia. The results of the nuclear stress test were only available yesterday. 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 She plans on starting these medications today. The patient has descriptions of the symptoms that brought her in tonight do not sound highly suspicious for anginal pains. She describes brief frequent pains. There is no associated shortness of breath. Her EKG continues to show nonspecific changes but no definite ischemic changes. Her EKG is quite similar to her previous EKGs. Her troponins remain undetectable. My suspicion is that the symptoms she was having tonight are probably not ischemic symptoms. Therefore I feel she may be discharged to start the diltiazem and the isosorbide and to follow up with her intel recruiter and get her cardiac catheterization. I spoke to her about the nature of anginal symptoms and when she should return to the emergency room if she is feeling significantly worse. Lab Data 06/18/24 00:34 06/18/24 00:34 Labs: Lab Results 06/18/24 06/18/24 Range/Units 00:34 02:27 WBC 5.6 (4.8-10.8) X10*3/uL RBC 4.81 (4.20-5.50) X10*6/uL Hgb 14.8 (12.0-16.0) g/dl Hct 42.0 (37.0-47.0) % MCV 87.3 (80.0-98.0) fL MCH 30.8 (27.0-33.0) pg MCHC 35.2 H (31.0-35.0) g/dl RDW 12.3 (11.0-16.0) % Plt Count 214 (160-400) X10*3/uL MPV 10.2 (9.4-12.3) fL Immature Gran % (Auto) 0.4 (0.0-0.4) % Neut % (Auto) 53.3 (45-73) % Lymph % (Auto) 31.2 (20-40) % [place] % (Auto) 10.5 (2-11) % Eos % (Auto) 3.9 (0-4) % Baso % (Auto) 0.7 (0-2) % Lymph # (Auto) 1.8 (1.2-4.9) X10*3/uL [place] # (Auto) 0.6 (0.1-1.2) X10*3/uL Eos # (Auto) 0.2 (0.0-0.4) X10*3/uL Baso # (Auto) 0.0 (0.0-0.2) X10*3/uL Abs Immat Gran (auto) 0.02 (0.00-0.03) X10*3/uL Absolute Neuts (auto) 3.0 (2.0-8.3) x10*3/uL Absolute Nucleated RBC 0.000 (0.0-0.012) X10*3/uL Nucleated RBC % (auto) 0.0 (0.0-0.2) /100WBC Sodium 139 (135-145) mmol/L Potassium 3.9 (3.3-5.1) mmol/L Chloride 108 (96-108) mmol/L Carbon Dioxide 22 (22-29) mmol/L Anion Gap 13 (12-20) BUN 13 (9-16) mg/dL Creatinine 0.69 (0.5-1.4) mg/dL Estim Creat Clear Calc TNP Estimated GFR > 60 Random Glucose 153 H (60-115) mg/dL Calcium 10.0 (8.4-10.2) mg/dL Total Bilirubin 0.6 (0.0-1.0) mg/dL AST 22 (5-31) U/L ALT 25 (0-31) U/L Alkaline Phosphatase 37 L (39-117) U/L Troponin I High Sens < 2.7 < 2.7 (<3.5-17.0) ng/L Total Protein 7.2 (6.5-8.0) g/dL Albumin 4.1 (3.5-5.0) g/dL Independent Interpretation I performed an independent interpretation of an: EKG Interpretation: EKG at 00:02 shows normal sinus rhythm at 76 beats per minute. There are nonspecific changes similar to previous EKGs. Discharge Plan Discharge Clinical Impression: Palpitations, Chest pain Patient Disposition: Home, Self-Care Additional Instructions: Your EKG and your blood tests today again indicate that there is no active heart attack at work. I therefore think you may be discharged. Please start taking the diltiazem and the isosorbide medications prescribed by your intel recruiter tomorrow. Please stay in touch with your intel recruiter and continue the plan to have a cardiac catheterization soon. My hope is that your symptoms will improve with the diltiazem and the isosorbide and that you will be able to avoid returning to the emergency room before your cardiac catheterization. However if at any point you feel significantly worse, especially if you have chest pressure that is persistent and especially if is associated with shortness of breath or sweatiness, then you should return to the emergency room for another evaluation. Prescriptions: No Action (DME) blood-glucose [place] [OneTouch Ultra2 Meter[place] [facility] [place] Instructions .ROUTE .MEDSUPPLY Qty: 1 0RF Rx Instructions: Use to check blood sugars twice a day (DME) blood sugar diagnostic Strip See Rx Instructions .ROUTE .MEDSUPPLY Qty: 50 8RF Rx Instructions: to check blood sugars twice a day (DME) lancets [OneTouch Delica Lancets] 33 gauge [facility] [place] See Rx Instructions .ROUTE .MEDSUPPLY Qty: 100 8RF Rx Instructions: to use twice a day valsartan 320 mg tablet 320 mg PO DAILY Qty: 90 8RF atorvastatin 10 mg tablet 10 mg PO DAILY Qty: 90 8RF fenofibrate 160 mg tablet 160 mg PO DAILY Qty: 90 8RF metformin 500 mg tablet 500 mg PO BID Qty: 180 8RF isosorbide mononitrate 30 mg tablet extended release 24 hr 30 mg PO DAILY Qty: 30 5RF dicyclomine 20 mg tablet 20 mg PO QID PRN (Reason: abdominal pain) Qty: 30 3RF omeprazole 20 mg capsule,delayed release(DR/EC) 20 mg PO QAM diltiazem HCl [Cardizem CD] 120 mg capsule,extended release 24hr 120 mg PO DAILY Qty: 30 5RF Referrals: Octaviano Scott MD [Primary Care Provider] - (Chest pains, palpitations) Richard Bautista MD [Physician] - (Palpitations, troponins negative, chest pains) Interventions: ED Discharge Assessment Last Done: 06/18/24 03:44 Discharge Date/Time: 06/18/24 03:47 Print Language: Citizen [place]
[2024-06-18 01:44] VITALS: BP 172/68; PULSE 77; RESP 14; O2SAT 98
--- NOTE | 2024-06-18 01:55 | MHC.EDTECH ---
Hourly rounds completed,vitals taken by RN. pt is resting quietly call pike in reach
[2024-06-18 02:21] VITALS: BP 153/75; PULSE 70; RESP 18; TEMP 36.7; O2SAT 98
--- NOTE | 2024-06-18 02:30 | MHC.EDTECH ---
Repeat Trop drawn and sent to lab,vitals taken,call pike in reach
[2024-06-18 02:58] LABS: Troponin-I High Sensitivity < 2.7 ng/L (<3.5-17.0)
[2024-06-18 03:31] VITALS: BP 178/81; PULSE 75; RESP 18; TEMP 36.7; O2SAT 98
[2024-06-18 03:44] VITALS: BP 178/81; PULSE 75; RESP 18; TEMP 36.7; O2SAT 98
== END 2024-06-18 03:47 | disposition home or self-care (01) ==
PROVIDERS: Emergency Provider Emergency Medicine; PCP Internal Medicine
DX: R07.9 Chest pain, unspecified (principal); R00.2 Palpitations; E11.9 Type 2 diabetes mellitus without complications; I10 Essential (primary) hypertension
CPT/HCPCS: 36415; 80053; 84484; 85025; 93005; 99283; 99285

== ENCOUNTER 2024-06-21 12:59 | Emergency (ER) | payer MEDICARE, SELFPAY ==
[2024-06-21 13:06] VITALS: BP 159/78; PULSE 83; RESP 18; TEMP 36.7; BMI 34.8
--- NOTE | 2024-06-21 13:07 | ECG_ITS ---
Test Reason : CHEST PAIN Blood Pressure : / mmHG Vent. Rate : 063 BPM Atrial Rate : 063 BPM P-R Int : 208 ms QRS Dur : 078 ms QT Int : 408 ms P-R-T Axes : 015 -27 001 degrees QTc Int : 417 ms Normal sinus rhythm Minimal voltage criteria for LVH, may be normal variant ( R in aVL ) Septal infarct , age undetermined Abnormal ECG When compared with ECG of 18-JUN-2024 00:02, Septal infarct is now Present Referred By: Jc Butler Electronically Signed By:NEREIDA BROOKE
--- NOTE | 2024-06-21 13:08 | ED.CHESTPAIN ---
HPI - Chest Pain General Chief Complaint: Chest Pain Stated Complaint: Chest pain/Headache sent by cardiology Time Seen by Provider: 06/21/24 21:07 Source: patient Mode of arrival: ambulatory Limitations: no limitations History of Present Illness ED Provider: carmen JENKINS narrative: Patient has been having chest pain off and on for last several months had stress test done on 06/10/2024 which was negative been seen by bus monitor workup so far in the past was negative still having pain off and on plan to have cardiac catheterization next week patient is started on diltiazem and isosorbide nitrate by bus monitor for atrial tachycardia on the event monitor 2 days ago today she comes as she having the similar pain by the time patient arrived chest pain improved patient had 2 sets of cardiac enzymes prior to my evaluation which was normal EKG without any ischemic changes Related Data Home Medications ?Medication ?Instructions ?Recorded ?Confirmed omeprazole 20 mg capsule,delayed 20 mg PO QAM 06/16/24 06/16/24 release Previous Rx's ?Medication ?Instructions ?Recorded blood-glucose meter ([employer]uch #1 ea 02/23/21 Ultra2 Meter) blood sugar diagnostic #50 ea 02/26/21 lancets 33 gauge (OneTouch Delica #100 ea 02/27/21 Lancets) valsartan 320 mg tablet 320 mg PO DAILY #90 tabs 05/20/23 atorvastatin 10 mg tablet 10 mg PO DAILY #90 tabs 06/15/23 fenofibrate 160 mg tablet 160 mg PO DAILY #90 tabs 07/06/23 metformin 500 mg tablet 500 mg PO BID #180 tabs 08/06/23 dicyclomine 20 mg tablet 20 mg PO QID PRN abdominal pain 03/10/24 #30 tabs diltiazem HCl 120 mg 120 mg PO DAILY #30 caps 06/16/24 capsule,extended release 24 hr (Cardizem CD) isosorbide mononitrate 30 mg 30 mg PO DAILY #30 tabs 06/17/24 tablet,extended release 24 hr aspirin 81 mg tablet,delayed 81 mg PO DAILY #30 tabs 06/21/24 release (Adult Low Dose Aspirin) Allergies Allergy/AdvReac Type Severity Reaction Status Date / Time No Known Allergies Allergy Verified 06/21/24 13:10 Review of Systems Review of Systems: Yes all other systems are reviewed and are negative [facility] Past Medical History Medical History Hypertension Obesity Type 2 diabetes mellitus with obesity Diabetes mellitus Surgical History History of bladder surgery H/O rectal polypectomy History of cholecystectomy Family History Family History Father Hodgkin disease Mother Medical history unknown Social History Social History Housing: House Alcohol intake: never Patient Tobacco Use Status: Never used Tobacco Smoked in Last 30 Days: No e-Cigarette/Vaping Use: Never Used Second Hand Smoke Exposure: No Use of substances other than those prescribed or required for medical reasons: No Any prior treatment program specific to substance use: No Advance Directives: No Advance Directives Information Provided: No Do you have a plan to hurt others: No Plan service: No Current occupational status: retired Current occupational exposures/hazards: No Cognitive needs: No Hearing needs: No Vision needs: Yes Physical Exam Vital Signs: Vital Signs: Last Vital Signs Temp 98.3 F 06/21/24 22:08 Pulse 72 06/21/24 22:08 Resp 18 06/21/24 22:08 BP 165/77 H 06/21/24 22:08 Pulse Ox 96 06/21/24 22:08 O2 Del Method Room Air 06/21/24 22:08 BMI result Body Mass Index 34.8 Appearance: Alert. Oriented X3. No acute distress. Eyes: No pallor or icterus ENT: Pharynx normal. Oral Mucosa moist Neck: Normal inspection. Neck supple. CVS: Normal heart rate and rhythm. Pulses normal. Respiratory: No respiratory distress. Equal air entry bilateral, no wheezing/rales/rhonchi Abdomen: Soft and nontender. Bowel sounds are present, no mass palpable, no CVA tenderness Skin: Skin warm and dry. Normal skin color. Normal skin turgor. Extremities: No lower extremity edema. No calf tenderness Neuro: Oriented X 3. No motor deficit. Course Course Course Narrative: RME, this is a rapid medical exam performed by Jos Butler please refer to primary provider for complete H&P- 74-year-old female presents for evaluation of chest pain. She was seen here on 06/14/2024 and 06/18/2024. She was recently started on isosorbide nitrate as well as diltiazem. Her primary doctor encouraged her to come to the ER due to continued chest pain. Plan for labs, EKG Medications Administered Discontinued Medications Generic Name Dose Route Start Last Admin Trade Name Gertrude PRN Reason Stop Dose Admin Aspirin 162 mg 06/21/24 21:28 06/21/24 21:57 Aspirin Enteric Coated 81 Mg Tablet.Dr CHOUDHARY 06/21/24 21:29 162 mg ONCE ONE Administration Medical Decision Making Medical Decision Making [facility] Narrative: Patient has atypical chest pain which is going on for several months with recent workup-2 sets of cardiac enzymes negative EKG without any ischemic changes plan to have stress test will discharge patient home advised to take baby aspirin for now Differential Diagnosis Differential Diagnoses: The differential diagnosis associated with the presentation includes ACS/microvascular angina/cardiomyopathy/multivessel disease/musculoskeletal pain/esophagitis Admission/Observation Consideration of admission/observation: Escalation of care including admission/observation considered Lab Data [facility] Lab Attestation statement: I reviewed the patient's lab results. 06/21/24 13:30 06/21/24 13:30 Labs: Lab Results 06/21/24 06/21/24 Range/Units 13:30 20:28 WBC 5.1 (4.8-10.8) X10*3/uL RBC 4.76 (4.20-5.50) X10*6/uL Hgb 14.8 (12.0-16.0) g/dl Hct 42.1 (37.0-47.0) % MCV 88.4 (80.0-98.0) fL MCH 31.1 (27.0-33.0) pg MCHC 35.2 H (31.0-35.0) g/dl RDW 12.2 (11.0-16.0) % Plt Count 221 (160-400) X10*3/uL MPV 10.2 (9.4-12.3) fL Immature Gran % (Auto) 0.2 (0.0-0.4) % Neut % (Auto) 67.8 (45-73) % Lymph % (Auto) 19.8 L (20-40) % [place] % (Auto) 9.1 (2-11) % Eos % (Auto) 2.5 (0-4) % Baso % (Auto) 0.6 (0-2) % Lymph # (Auto) 1.0 L (1.2-4.9) X10*3/uL [place] # (Auto) 0.5 (0.1-1.2) X10*3/uL Eos # (Auto) 0.1 (0.0-0.4) X10*3/uL Baso # (Auto) 0.0 (0.0-0.2) X10*3/uL Abs Immat Gran (auto) 0.01 (0.00-0.03) X10*3/uL Absolute Neuts (auto) 3.5 (2.0-8.3) x10*3/uL Absolute Nucleated RBC 0.000 (0.0-0.012) X10*3/uL Nucleated RBC % (auto) 0.0 (0.0-0.2) /100WBC PT 12.8 H (10.9-12.4) SEC INR 1.1 (0.9-1.1) Sodium 142 (135-145) mmol/L Potassium 3.9 (3.3-5.1) mmol/L Chloride 106 (96-108) mmol/L Carbon Dioxide 26 (22-29) mmol/L Anion Gap 14 (12-20) BUN 16 (9-16) mg/dL Creatinine 0.80 (0.5-1.4) mg/dL Estim Creat Clear Calc 70.6 Estimated GFR > 60 Random Glucose 134 H (60-115) mg/dL Calcium 10.0 (8.4-10.2) mg/dL Magnesium 2.1 (1.6-2.6) mg/dL Total Bilirubin 0.8 (0.0-1.0) mg/dL AST 21 (5-31) U/L ALT 19 (0-31) U/L Alkaline Phosphatase 34 L (39-117) U/L Troponin I High Sens < 2.7 < 2.7 (<3.5-17.0) ng/L Total Protein 7.4 (6.5-8.0) g/dL Albumin 4.3 (3.5-5.0) g/dL Lipase 25 (8-78) U/L Independent Interpretation I performed an independent interpretation of an: EKG Interpretation: Normal sinus rhythm heart rate 63 beats per minute LVH poor progression of R-wave in anterior leads no acute STT wave changes no acute ischemia Discharge Plan Discharge Clinical Impression: Chest pain Patient Disposition: Home, Self-Care Instructions: Chest Pain (ED) Additional Instructions: At this time there is no evidence of significant cardiac damage etiology for chest pain is not clear Follow with your bus monitor for scheduled angiogram Start taking baby aspirin daily and continue diltiazem and isosorbide Call bus monitor in a.m. about the pain and future plan Prescriptions: New aspirin [Adult Low Dose Aspirin] 81 mg tablet,delayed release (DR/EC) 81 mg PO DAILY Qty: 30 0RF No Action (DME) blood-glucose meter [[employer] Ultra2 Meter] [facility] See Rx Instructions .ROUTE .MEDSUPPLY Qty: 1 0RF Rx Instructions: Use to check blood sugars twice a day (DME) blood sugar diagnostic Strip See Rx Instructions .ROUTE .MEDSUPPLY Qty: 50 8RF Rx Instructions: to check blood sugars twice a day (DME) lancets [OneTouch Delica Lancets] 33 gauge misc See Rx Instructions .ROUTE .MEDSUPPLY Qty: 100 8RF Rx Instructions: to use twice a day valsartan 320 mg tablet 320 mg PO DAILY Qty: 90 8RF atorvastatin 10 mg tablet 10 mg PO DAILY Qty: 90 8RF fenofibrate 160 mg tablet 160 mg PO DAILY Qty: 90 8RF metformin 500 mg tablet 500 mg PO BID Qty: 180 8RF isosorbide mononitrate 30 mg tablet extended release 24 hr 30 mg PO DAILY Qty: 30 5RF dicyclomine 20 mg tablet 20 mg PO QID PRN (Reason: abdominal pain) Qty: 30 3RF omeprazole 20 mg capsule,delayed release(DR/EC) 20 mg PO QAM diltiazem HCl [Cardizem CD] 120 mg capsule,extended release 24hr 120 mg PO DAILY Qty: 30 5RF Interventions: ED Discharge Assessment Last Done: 06/21/24 22:08 Discharge Date/Time: 06/21/24 22:00 Print Language: Lithuanian
[2024-06-21 13:36] LABS: Basophils Percent Auto 0.6 % (0-2); Eosinophils Absolute Auto 0.1 X10*3/uL (0.0-0.4); Eosinophils Percent Auto 2.5 % (0-4); Hematocrit 42.1 % (37.0-47.0); Hemoglobin 14.8 g/dl (12.0-16.0); Imm Gran Abs Auto 0.01 X10*3/uL (0.00-0.03); Imm Gran Pct Auto 0.2 % (0.0-0.4); Lymphocytes Percent Auto 19.8 % (20-40); MANUAL DIFF FLAG NO; Mean Corpuscular HGB Conc 35.2 g/dl (31.0-35.0); Mean Corpuscular Hemoglobin 31.1 pg (27.0-33.0); Mean Corpuscular Volume 88.4 fL (80.0-98.0); Mean Platelet Volume 10.2 fL (9.4-12.3); Monocytes Absolute Auto 0.5 X10*3/uL (0.1-1.2); Monocytes Percent Auto 9.1 % (2-11); Neutrophils Absolute Auto 3.5 x10*3/uL (2.0-8.3); Neutrophils Percent Auto 67.8 % (45-73); Platelet Count 221 X10*3/uL (160-400); Red Blood Count 4.76 X10*6/uL (4.20-5.50); Red Cell Distribution Width 12.2 % (11.0-16.0); White Blood Count 5.1 X10*3/uL (4.8-10.8)
[2024-06-21 13:45] LABS: INTERNATIONAL NORM RATIO 1.1 (0.9-1.1); Prothrombin Time 12.8 SEC (10.9-12.4)
[2024-06-21 13:51] LABS: Alanine Aminotransferase 19 U/L (0-31); Albumin Level 4.3 g/dL (3.5-5.0); Alkaline Phosphatase 34 U/L (39-117); Anion Gap 14 (12-20); Aspartate Amino Transferase 21 U/L (5-31); Bilirubin Total 0.8 mg/dL (0.0-1.0); Blood Urea Nitrogen 16 mg/dL (9-16); Carbon Dioxide 26 mmol/L (22-29); Chloride 106 mmol/L (96-108); Creatinine Clr Calc Pharmacy 70.6; Estimated Glomerular Filt Rate > 60; Glucose Random 134 mg/dL (60-115); Lipase 25 U/L (8-78); Magnesium 2.1 mg/dL (1.6-2.6); Potassium 3.9 mmol/L (3.3-5.1); Sodium 142 mmol/L (135-145); Total Protein 7.4 g/dL (6.5-8.0)
[2024-06-21 14:04] LABS: Troponin-I High Sensitivity < 2.7 ng/L (<3.5-17.0)
[2024-06-21 21:03] LABS: Troponin-I High Sensitivity < 2.7 ng/L (<3.5-17.0)
[2024-06-21] MEDS: Aspirin Enteric Coated 81 MG TABLET.DR 162 MG PO (21:57)
[2024-06-21 22:00] VITALS: BP 165/77; PULSE 72; RESP 18; TEMP 36.8; O2SAT 96
[2024-06-21 22:08] VITALS: BP 165/77; PULSE 72; RESP 18; TEMP 36.8; O2SAT 96
== END 2024-06-21 22:00 | disposition home or self-care (01) ==
PROVIDERS: Physician Assistant; Emergency Provider Internal Medicine; PCP Internal Medicine
DX: R07.9 Chest pain, unspecified (principal); E11.9 Type 2 diabetes mellitus without complications; I10 Essential (primary) hypertension; E78.5 Hyperlipidemia, unspecified; Z79.02 Long term (current) use of antithrombotics/antiplatelets; Z79.899 Other long term (current) drug therapy
CPT/HCPCS: 36415; 80053; 83690; 83735; 84484; 85025; 85610; 93005; 99283; 99284

== ENCOUNTER → 2024-06-29 23:59 | Outpatient (BNV) | payer MEDICARE, SELFPAY | PROVIDERS: PCP Internal Medicine; Visit Provider Internal Medicine Cardiovascular Disease | DX: I20.89 Other forms of angina pectoris (principal); R93.1 Abnormal findings on diagnostic imaging of heart and coronary circulation | CPT/HCPCS: 93458; 99152 ==

== ENCOUNTER 2024-07-15 11:38 | Day surgery (SDC) | payer MEDICARE, SELFPAY ==
[2024-07-13 09:26] VITALS: BMI 33.7
--- NOTE | 2024-07-14 10:06 | HO.ANESPROP2 ---
Documented by User: Lizzy Cowart NP 07/14/24 10:12 HPI - Anesthesia Eval Consult details Narrative: 74yo F for Upper Endoscopy [place] [facility] [place] [place] for atrial tach, htn, cp. Cardiac cath 06/2024 showed no CAD. False + stress test. Optimized for procedure. [facility] Active Problems Active Problems: All Active Problems Atrial arrhythmia (Acute) Chest pressure (Acute) UTI (urinary tract infection) (Acute) Osteoporosis (Acute) Otitis media (Acute) Bullous dermatitis (Acute) Hyperlipidemia (Acute) Thigh contusion (Acute) Dysuria (Acute) Hyperglycemia (Acute) COVID-19 (Acute) Hypertension (Acute) Obesity (Acute) Type 2 diabetes mellitus with obesity (Acute) Diabetes mellitus (Acute) Past Medical History Medical History (Updated 07/13/24 @ 09:28 by Shayla Fontana RN) Hx of sigmoidoscopy Bladder cancer Hyperlipidemia Hypertension Obesity Type 2 diabetes mellitus with obesity Diabetes mellitus Family History Family History Father Hodgkin disease Mother Medical history unknown Surgical History Surgical History (Updated 07/13/24 @ 09:28 by Shayla Fontana RN) History of esophagogastroduodenoscopy (EGD) Hx of cystoscopy History of total abdominal hysterectomy History of bladder surgery H/O rectal polypectomy History of cholecystectomy Social History Social History Housing: House Alcohol intake: never Patient Tobacco Use Status: Never used Tobacco e-Cigarette/Vaping Use: Never Used Second Hand Smoke Exposure: No Advance Directives: No Advance Directives Information Provided: Yes service: No Current occupational status: retired Current occupational exposures/hazards: No Cognitive needs: No Hearing needs: No Vision needs: Yes Meds Allergies Allergy/AdvReac Type Severity Reaction Status Date / Time No Known Allergies Allergy Verified 07/15/24 13:13 Home Medications ?Medication ?Instructions ?Recorded ?Confirmed ?Last Taken ?Type omeprazole 20 mg capsule,delayed 20 mg PO QAM 06/16/24 07/15/24 Unknown History release Exam Height,Weight and Vital Signs: Height 5 ft 6 in Weight 94.801 kg Pertinent Lab Results Pertinent Lab Results: Laboratory Tests 06/21/24 13:30 WBC 5.1 Hgb 14.8 Hct 42.1 Plt Count 221 Sodium 142 Potassium 3.9 Chloride 106 Carbon Dioxide 26 BUN 16 Creatinine 0.80 Narrative Narrative: EKG 05/2024 Vent. Rate : 063 BPM Atrial Rate : 063 BPM P-R Int : 208 ms QRS Dur : 078 ms QT Int : 408 ms P-R-T Axes : 015 -27 001 degrees QTc Int : 417 ms Normal sinus rhythm Minimal voltage criteria for LVH, may be normal variant ( R in aVL ) Septal infarct , age undetermined Abnormal ECG When compared with ECG of 18-JUN-2024 00:02, Septal infarct is now Present Assessment and Plan Assessment Anesthesia Assessment: Chart Reviewed Documented by User: Scott Alvares MD 07/15/24 13:20 PMFSH Past Medical History Medical History (Updated 07/13/24 @ 09:28 by Shayla Fontana, RN) Hx of sigmoidoscopy Bladder cancer Hyperlipidemia Hypertension Obesity Type 2 diabetes mellitus with obesity Diabetes mellitus Family History Family History Father Hodgkin disease Mother Medical history unknown Family history of problems with anesthesia: No Surgical History Surgical History (Updated 07/13/24 @ 09:28 by Shayla Fontana RN) History of esophagogastroduodenoscopy (EGD) Hx of cystoscopy History of total abdominal hysterectomy History of bladder surgery H/O rectal polypectomy History of cholecystectomy History of Problems with Anesthesia: No Social History Social History Housing: House Alcohol intake: never Patient Tobacco Use Status: Never used Tobacco e-Cigarette/Vaping Use: Never Used Second Hand Smoke Exposure: No Advance Directives: No Advance Directives Information Provided: Yes service: No Current occupational status: retired Current occupational exposures/hazards: No Cognitive needs: No Hearing needs: No Vision needs: Yes Meds Allergies Allergy/AdvReac Type Severity Reaction Status Date / Time No Known Allergies Allergy Verified 07/15/24 13:13 Home Medications ?Medication ?Instructions ?Recorded ?Confirmed ?Last Taken ?Type omeprazole 20 mg capsule,delayed 20 mg PO QAM 06/16/24 07/15/24 Unknown History release Exam Airway Mallampati Class: II TM Dist: <=3cm Neck ROM: Full Denture: Upper Loose/Missing/Broken Teeth: Yes and Lower Heart: ok. see above. Lungs: ok Assessment and Plan Assessment Anesthesia Assessment: Anesthesia Plan Discussed Final Anesthetic Review Family History of Problems with Anesthesia: No History of Problems with Anesthesia: No NPO: Yes ASA Class: III Final Preanesthetic Review: No Changes in Pt Med Stat, Meds/Allgs Chart Reviewed, Consent Obtained/Reviewed and Anes Risks/Benef Reviewed Patient Risk: Intermediate Procedure Risk: Intermediate Anesthetic Plan Anesthetic Plan: Agree w/ Assess. and Plan and TIVA Disposition: Standard PACU
[2024-07-15 12:30] VITALS: BP 164/79; PULSE 74; RESP 18; TEMP 36.6; O2SAT 98
[2024-07-15] MEDS: Lactated Ringers 1,000 ML 100 ML IVCONT (12:46)
[2024-07-15 12:59] LABS: Glucose, Whole Blood 111 mg/dL (60-115)
--- NOTE | 2024-07-15 13:50 | P.BOP_ITS ---
Brief Operative Note Date of Service: 07/15/24 Pre-op diagnosis: Abdominal pain Post-op diagnosis: other (Gastritis, Hiatal hernia) Procedure: EGD with biopsies Surgeon: Kaden Artis MD Anesthesia: MAC Was an Head Of Drama used for this Procedure?: No Estimated blood loss (mL): 2.0 Pathology: other (A. Descending duodenum B. Gastric antrum C. EG Junction at 36cm) Condition: stable Disposition: PACU
[2024-07-15 13:53] VITALS: BP 126/67; PULSE 86; RESP 18; TEMP 36.4; O2SAT 92
[2024-07-15 14:08] VITALS: BP 142/86; PULSE 74; RESP 18; O2SAT 96
[2024-07-15 14:23] VITALS: BP 145/63; PULSE 64; RESP 16; O2SAT 96
[2024-07-15 14:38] VITALS: BP 139/70; PULSE 70; RESP 16; O2SAT 95
[2024-07-15 14:53] VITALS: BP 139/71; PULSE 67; RESP 16; TEMP 36.3; O2SAT 98
--- NOTE | 2024-07-16 00:30 | OP_ITS ---
DATE OF SERVICE: 07/15/2024 SURGEON: Kaden Artis MD INDICATIONS: The patient presents for evaluation of abdominal pain. Full consent has been obtained from her for this, including risks of bleeding and perforation. PREOPERATIVE DIAGNOSIS: Abdominal pain. POSTOPERATIVE DIAGNOSIS: PROCEDURE PERFORMED: Esophagogastroduodenoscopy with biopsies. ESTIMATED BLOOD LOSS: COMPLICATIONS: ANESTHESIA: Monitored anesthesia care. ASSISTANTS: SPECIMENS: POSTOPERATIVE DIAGNOSES: Abdominal pain, small hiatal hernia, gastritis, rule out celiac disease, mild changes of gastroesophageal reflux. DESCRIPTION OF PROCEDURE: The patient was placed in the left lateral decubitus position. The Olympus video gastroscope was passed in the posterior oropharynx and upper esophagus under direct vision. The scope was passed slowly into the distal esophagus. The gastroesophageal junction appeared at 36 cm. There was some very minimal irregularity, but no evidence of esophagitis nor any definitive evidence of Soriano mucosa. The scope entered in the stomach. There was a small hiatal hernia. The scope was advanced to pylorus and the duodenum was cannulated to the descending portion. The duodenum including the bulb appeared normal without mass or ulceration. Biopsies were obtained from the 2nd and 3rd portions of duodenum. The scope was withdrawn back in the stomach. The gastric antrum and body had some changes of erythema and edema consistent with a mild gastritis, but there was no erosions or ulceration. There was good peristalsis. Biopsies were obtained from the antrum. The scope was retroflexed visualizing the proximal stomach carefully, which appeared normal, without any sign of mass or ulceration. The scope was straightened and withdrawn back from the esophagus. Biopsies were obtained at the EG junction at 36 cm. Proximal to that, the esophageal mucosa appeared normal. The scope was withdrawn from the patient. She tolerated the procedure well and she was returned to recovery area in stable condition. IMPRESSION: 1. Mild changes of gastritis. 2. Rule out celiac disease. 3. Rule out Helicobacter pylori. 4. Small hiatal hernia, gastroesophageal reflux. PLAN: The results of the biopsies will be checked. She does report that she has been using omeprazole with slight improvement in her abdominal complaints. At this point, today's findings would not definitively account for her ongoing symptoms. She has already had a negative CAT scan of the abdomen as well as normal laboratories. Part of her symptoms could be related to some irritable bowel syndrome and she does relate some stress-induced symptoms as well. She will be followed up in the office. Of note, she is scheduled for a colonoscopy later this year as well. MD MELINA Elliott/MALCOLM / [id number]
== END 2024-07-15 15:24 | disposition home or self-care (01) ==
PROVIDERS: PCP Internal Medicine; Visit Provider Internal Medicine
PROC: 0DJ08ZZ Inspection of Upper Intestinal Tract, Via Natural or Artificial Opening Endoscopic (ICD-10-PCS; CPT 43235; principal; 2024-07-15 13:00)
DX: R10.13 Epigastric pain (principal); K29.60 Other gastritis without bleeding; K21.9 Gastro-esophageal reflux disease without esophagitis; K44.9 Diaphragmatic hernia without obstruction or gangrene; I10 Essential (primary) hypertension; E78.5 Hyperlipidemia, unspecified; E11.9 Type 2 diabetes mellitus without complications; Z85.51 Personal history of malignant neoplasm of bladder; Z79.84 Long term (current) use of oral hypoglycemic drugs; Z79.899 Other long term (current) drug therapy; Z90.49 Acquired absence of other specified parts of digestive tract; Z98.890 Other specified postprocedural states
CPT/HCPCS: 43239; 82947; 88305; 88313; 88342; J2003; J2704

== ENCOUNTER 2024-07-19 13:23 | Outpatient (AMB) | payer MEDICARE, SELFPAY ==
[2024-07-19 13:26] VITALS: BP 142/76; PULSE 74; O2SAT 96; BMI 32.3
--- NOTE | 2024-07-19 13:26 | A.OFFPC_ITS ---
Vital Signs 07/19/24 13:26 Height 5 ft 6 in Weight 200 lb BMI 32.3 BP 142/76 H Blood Pressure Location Lt brachial Position Sitting Pulse 74 Pulse Source Pulse Oximeter Pulse Oximetry (%) 96 Oxygen Delivery Method Room Air Intake Visit Reasons: follow up Computer Network Specialist Required: No Accompanied by: Self / Same As Patient Allergies No Known Allergies Allergy (Verified 07/19/24 13:27) Medication List - Last Reconciled 07/20/24 by Octaviano Scott MD amlodipine 2.5 mg PO DAILY atorvastatin 10 mg PO DAILY blood sugar diagnostic to check blood sugars twice a day blood-glucose meter ([employer] Ultra2 Meter) Use to check blood sugars twice a day dicyclomine 20 mg PO QID PRN fenofibrate 160 mg PO DAILY lancets ([employer] Delica Lancets) to use twice a day metformin 500 mg PO BID omeprazole 20 mg PO QAM valsartan 320 mg PO DAILY Tobacco use date assessed: 01/05/24 Fall risk assessment: No Falls in past year Last assessed Fall Risk: 07/19/24 Dental Screening Dental Screen Date: 12/09/23 HPI follow up HPI Details dizzy, light-headed and weak for a month PFSH Medical History (Updated 07/20/24 @ 09:06 by Octaviano Scott MD) Hx of sigmoidoscopy Bladder cancer Hyperlipidemia Hypertension Obesity Type 2 diabetes mellitus with obesity Diabetes mellitus Surgical History History of esophagogastroduodenoscopy (EGD) Hx of cystoscopy History of total abdominal hysterectomy History of bladder surgery H/O rectal polypectomy History of cholecystectomy Family History Father Hodgkin disease Mother Medical history unknown Social History Housing: House Are you a primary manager long term care to a significant other at home: No Do you presently have visiting nurse or other home services: No Alcohol intake: never Patient Tobacco Use Status: Never used Tobacco Tobacco use type: Cigarette e-Cigarette/Vaping Use: Never Used Second Hand Smoke Exposure: No service: No Current occupational status: retired Current occupational exposures/hazards: No Cognitive needs: No Hearing needs: No Vision needs: Yes Questionnaire Thrive Questionnaire Date Thrive assessed: 01/05/24 AUDIT C Alcohol Use Questionnaire (AUDIT-C) 2. How many drinks containing alcohol do you have on a typical day when you are drinking?: 1 or 2 3. How often do you have six or more drinks on one occasion?: Never Total Score: 0 DALILA-7 AMB Questionnaire DALILA-7 Date DALILA - 7 assessed: 12/09/23 Source: Developed by Drs. Kaden Perea, Charlee Cerrato, Rylan Richter and colleagues, with an educational roxanne from [employer]. Review of Systems Const Denies chills, Denies headache(s) and Denies weight loss ENT Denies headache(s) Card Denies chest pain, Denies syncope, Denies irregular heart rhythm and Denies dyspnea Resp Denies chest congestion, Denies cough and Denies dyspnea GI Denies abdominal pain, Denies change in stool character, Denies nausea and Denies vomiting Musc Denies deformity and Denies joint swelling Neuro Denies syncope and Denies headache(s) Physical exam (Primary Care) Vital Signs: Last Vital Signs Pulse 74 07/19/24 13:26 BP 142/76 H 07/19/24 13:26 Pulse Ox 96 07/19/24 13:26 Oxygen Delivery Method Room Air 07/19/24 13:26 BMI result Body Mass Index 32.3 Tobacco/Smoking Status: Tobacco use Status Tobacco use date assessed 01/05/24 07/19/24 13:32 Patient Tobacco Use Status Never used Tobacco 07/19/24 13:32 Tobacco use type Cigarette 07/19/24 13:32 e-Cigarette/Vaping Use Never Used 07/19/24 13:32 Thrive Assessment: Date of Thrive Assessment Date Thrive assessed 01/05/24 07/19/24 13:32 Const General: cooperative, comfortable, no acute distress and alert Neck Neck: Yes no lymphadenopathy Thyroid: Thyroid normal Resp Effort & Inspection: normal respiratory effort Auscultation: clear to auscultation bilaterally Percussion: percussion normal Cardio Jugular venous distension: no JVD Palpation: normal PMI Rate: regular rate Rhythm: regular rhythm Heart sounds: S1 normal heart sound present and S2 normal heart sound present GI Inspection: Yes normal to inspection Palpation (GI): No hepatosplenomegaly present Skin General skin exam: no rashes or lesions noted Extrem General: Yes no clubbing, cyanosis or edema Office Procedures Flu Questionnaire Does the patient have a severe egg allergy?: No Does the patient have severe life threatening allergies?: No Does the patient have a fever or illness today?: No Has the patient ever had Guillain-Eagar Syndrome?: No Has the patient ever had any past reaction to a flu shot?: No Immunizations Fluarix Triv [id number] (PF) 45 mcg (15 mcg x 3)/0.5 mL IM syringe Performing Provider: Octaviano Scott MD [facility] Administered by: Cristina Jones LPN on 07/19/24 13:55 Dose Route Admin Location Dispensed Lot Number Expiration Date [facility] 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 VIS Given Date VIS Provided VIS Publication Date 07/19/24 Single Vaccine 21 Eligibility Eligibility Date Funding Source Not [facility] Eligible 07/19/24 Private Coding Level of Care Code Est Pt Level 3 (61472) Diagnoses Dizziness R42 Assessment & Plan Assessment & Plan (1) Dizziness: Code(s): R42 - Dizziness and giddiness Category: Medical Plan: ct head Orders: Orders Influenza [id number] Immunization 07/19/24 Z23 - Encounter for immunization CT head/brain wo IV con Today R26.9 - Unspecified abnormalities of gait and mobility
== END 2024-07-19 13:54 | disposition home or self-care (01) ==
LOC: HO.HMCH 13:24
PROVIDERS: PCP Internal Medicine; Visit Provider Internal Medicine
DX: R42 Dizziness and giddiness (principal)

== ENCOUNTER → 2024-07-19 13:23 | Outpatient (BNVA) | payer MEDICARE, SELFPAY | PROVIDERS: PCP Internal Medicine; Visit Provider Internal Medicine | DX: Z23 Encounter for immunization (principal); R26.9 Unspecified abnormalities of gait and mobility; R42 Dizziness and giddiness | CPT/HCPCS: 90471; 90656; 99212 ==

== ENCOUNTER → 2024-07-21 10:32 | Outpatient (REF) | payer MEDICARE, SELFPAY ==
--- NOTE | 2024-07-21 10:37 | ECG_ITS ---
Test Reason : dizziness Blood Pressure : / mmHG Vent. Rate : 072 BPM Atrial Rate : 072 BPM P-R Int : 212 ms QRS Dur : 084 ms QT Int : 390 ms P-R-T Axes : 031 -31 021 degrees QTc Int : 427 ms Sinus rhythm with sinus arrhythmia with 1st degree A-V block Left axis deviation Minimal voltage criteria for LVH, may be normal variant ( R in aVL ) Nonspecific T wave abnormality Abnormal ECG When compared with ECG of 21-JUN-2024 13:17, Criteria for Septal infarct are no longer Present Referred By: Octaviano Scott Electronically Signed By:JANICE SANTANA
== END ==
LOC: HO.CARD 10:32
PROVIDERS: PCP Internal Medicine; Visit Provider Internal Medicine
DX: R42 Dizziness and giddiness (principal)
CPT/HCPCS: 93005

== ENCOUNTER → 2024-07-21 10:37 | Outpatient (BNV) | payer MEDICARE, SELFPAY | PROVIDERS: PCP Internal Medicine; Visit Provider Internal Medicine | DX: R42 Dizziness and giddiness (principal) | CPT/HCPCS: 93010 ==

== ENCOUNTER 2024-07-26 13:57 | Outpatient (AMB) | payer MEDICARE, SELFPAY ==
--- NOTE | 2024-07-26 14:29 | MHC.OFFVIS ---
Vital Signs 07/26/24 14:32 Height 5 ft 6 in Weight 198 lb 6.656 oz BMI 32.0 BP 120/74 Blood Pressure Location Lt brachial Position Sitting Pulse 71 Intake Visit Reasons: 5 wk f/up testing/ meds ns Intake Note: 5 week follow-up c/o pressure in head for a few weeks make her unsteady Plant Clerk Required: No Allergies No Known Allergies Allergy (Verified 07/19/24 13:27) Medication List - Last Reconciled 07/26/24 by Richard Bautista MD atorvastatin 10 mg PO DAILY blood sugar diagnostic to check blood sugars twice a day blood-glucose meter ([employer] Ultra2 Meter) Use to check blood sugars twice a day fenofibrate 160 mg PO DAILY lancets ([employer] Delica Lancets) to use twice a day metformin 500 mg PO BID omeprazole 20 mg PO QAM valsartan 320 mg PO DAILY HPI Comments Details: Mercedes comes for follow-up after cardiac catheterization. This shows nonobstructive CAD. Has no symptoms of palpitation. She could not tolerate Cardizem as she said she developed symptoms of flushing and lightheadedness with it. She has been off it as well as off amlodipine therapy. Despite that her blood pressures been well controlled as per her. Today she comes in and says she has almost has constant at pressure along with issues with imbalance and she is concerned about the symptoms. No focal neurologic deficits. Denies any other obvious cardiac symptoms. [facility] Medical History Hx of sigmoidoscopy Bladder cancer Hyperlipidemia Hypertension Obesity Type 2 diabetes mellitus with obesity Diabetes mellitus Surgical History History of esophagogastroduodenoscopy (EGD) Hx of cystoscopy History of total abdominal hysterectomy History of bladder surgery H/O rectal polypectomy History of cholecystectomy Family History Father Hodgkin disease Mother Medical history unknown Social History Housing: House Are you a primary adult care provider to a significant other at home: No Do you presently have visiting nurse or other home services: No Alcohol intake: never Patient Tobacco Use Status: Never used Tobacco Tobacco use type: Cigarette e-Cigarette/Vaping Use: Never Used Second Hand Smoke Exposure: No service: No Current occupational status: retired Current occupational exposures/hazards: No Cognitive needs: No Hearing needs: No Vision needs: Yes Review of Systems Const Denies chills, Denies fatigue, Denies fever(s), Denies frequent falls, Denies weakness, Denies weight gain and Denies weight loss ENT Denies dizziness Card Denies chest pain, Denies leg edema, Denies lightheadedness, Denies palpitations, Denies dyspnea, Denies dyspnea on exertion, Denies orthopnea and Denies other (loss of consciousness) Resp Denies cough, Denies dyspnea and Denies dyspnea on exertion GI Denies hematochezia and Denies change in stool character Musc Denies abnormal gait, Denies muscle weakness, Denies numbness, Denies radiating pain into limb and Denies tingling Neuro Denies abnormal gait, Denies dizziness, Denies frequent falls, Denies numbness, Denies tingling and Denies weakness Endo Denies fatigue and Denies palpitations Physical Exam Vital Signs: Last Vital Signs Pulse 71 07/26/24 14:32 BP 120/74 07/26/24 14:32 BMI result Body Mass Index 32.0 Const General: cooperative, comfortable, no acute distress, alert and awake Nutritional Appearance: obese Orientation/consciousness: patient oriented x3 Limitations: no limitations HEENT Head: Yes normocephalic and Yes atraumatic Neck Neck: Yes trachea midline, Yes supple and Yes no JVD Resp Effort & Inspection: normal respiratory effort Auscultation: clear to auscultation bilaterally Cardio Jugular venous distension: no JVD Palpation: normal PMI Rate: regular rate Rhythm: regular rhythm Heart sounds: S1 normal heart sound present, S2 normal heart sound present, no click, no gallops, no murmurs, no rubs and Other heart sounds present (S4 present) GI Auscultation: normal bowel sounds Skin General skin exam: no rashes or lesions noted Neuro General: patient oriented x3 and no focal motor deficits Extrem General: Yes no clubbing, cyanosis or edema and Yes venous stasis dermatitis Psych Appearance: grossly normal Assessment & Plan Assessment & Plan (1) Atrial arrhythmia: Code(s): I49.8 - Other specified cardiac arrhythmias Category: Medical Plan: Atrial arrhythmias without any obvious significant symptoms at this point time. Will avoid any pharmacotherapy for it as she has not tolerated Cardizem therapy. Advised to call me with any worsening symptoms. Avoidance of stimulants was discussed. Stress mitigation strategies were discussed. (2) Hypertension: Code(s): I10 - Essential (primary) hypertension Category: Medical Plan: Hypertension which is currently well optimized on current therapy. Continue the same. Low-salt diet was discussed. Stress mitigation strategies. She is having symptoms of constant had discomfort and pressure as well as symptoms of imbalance. Consider Neurology consultation Will follow up in the clinic in 1 year's time, sooner p.r.n.. Thank you for allowing me to partake in his care Coding Level of Care Code Est Pt Level 3 (33486) Complex EM visit Add On G2211 Diagnoses Atrial arrhythmia I49.8 Hypertension I10
[2024-07-26 14:32] VITALS: BP 120/74; PULSE 71; BMI 32.0
== END 2024-07-26 15:06 | disposition home or self-care (01) ==
LOC: HO.HCS 13:58
PROVIDERS: PCP Internal Medicine; Visit Provider Internal Medicine Cardiovascular Disease
DX: I49.8 Other specified cardiac arrhythmias (principal); I10 Essential (primary) hypertension
CPT/HCPCS: 99213; G2211

== ENCOUNTER → 2024-07-26 13:57 | Outpatient (BNVA) | payer MEDICARE, SELFPAY | PROVIDERS: PCP Internal Medicine; Visit Provider Internal Medicine Cardiovascular Disease | DX: I49.8 Other specified cardiac arrhythmias (principal); I10 Essential (primary) hypertension | CPT/HCPCS: 99212 ==

== ENCOUNTER 2024-08-11 09:18 | Outpatient (AMB) | payer MEDICARE, SELFPAY ==
[2024-08-11 09:22] VITALS: BP 142/76; PULSE 70; O2SAT 95; BMI 32.9
--- NOTE | 2024-08-11 09:22 | A.OFFPC_ITS ---
Vital Signs 08/11/24 09:22 Height 5 ft 6 in Weight 204 lb BMI 32.9 BP 142/76 H Blood Pressure Location Lt brachial Position Sitting Pulse 70 Pulse Source Pulse Oximeter Pulse Oximetry (%) 95 Oxygen Delivery Method Room Air Intake Visit Reasons: 3 month f/u Allergies No Known Allergies Allergy (Verified 08/11/24 09:23) Medication List - Last Reconciled 08/11/24 by Octaviano Scott MD atorvastatin 10 mg PO DAILY blood sugar diagnostic to check blood sugars twice a day blood-glucose meter ([employer] Ultra2 Meter) Use to check blood sugars twice a day fenofibrate 160 mg PO DAILY lancets ([employer] Delica Lancets) to use twice a day lorazepam 1 mg PO Q6H PRN metformin 500 mg PO BID omeprazole 20 mg PO QAM valsartan 320 mg PO DAILY Tobacco use date assessed: 01/05/24 Fall risk assessment: No Falls in past year Last assessed Fall Risk: 08/11/24 Dental Screening Dental Screen Date: 12/09/23 HPI 3 month f/u HPI Details unsteady with gait and dizziness; has not had her CT of the head yet [facility] Medical History Hx of sigmoidoscopy Bladder cancer Hyperlipidemia Hypertension Obesity Type 2 diabetes mellitus with obesity Diabetes mellitus Surgical History History of esophagogastroduodenoscopy (EGD) Hx of cystoscopy History of total abdominal hysterectomy History of bladder surgery H/O rectal polypectomy History of cholecystectomy Family History Father Hodgkin disease Mother Medical history unknown Social History Housing: House Are you a primary manager intensive care to a significant other at home: No Do you presently have visiting nurse or other home services: No Alcohol intake: never Patient Tobacco Use Status: Never used Tobacco Tobacco use type: Cigarette e-Cigarette/Vaping Use: Never Used Second Hand Smoke Exposure: No service: No Current occupational status: retired Current occupational exposures/hazards: No Cognitive needs: No Hearing needs: No Vision needs: Yes Questionnaire PHQ-9 Over the last 2 weeks, how often have you been bothered by any of the following problems? 1. Little interest or pleasure in doing things: not at all 2. Feeling down, depressed, or hopeless: not at all 3. Trouble falling or staying asleep, or sleeping too much: not at all 4. Feeling tired or having little energy: not at all 5. Poor appetite or overeating: not at all 6. Feeling bad about yourself - or that you are a failure or have let yourself or your family down: not at all 7. Trouble concentrating on things, such as reading the newspaper or watching television: not at all 8. Moving or speaking so slowly that other people could have noticed. Or the opposite - being so fidgety or restless that you have been moving around a lot more than usual: not at all 9. Thoughts that you would be better off or of hurting yourself in some way: not at all Total score: 0 Depression Screening Interpretation: Negative Depression Screening Done: Yes 71544 - PHQ-9 Billing: Yes Source: Developed by Drs. Kaden Perea, Rylan Estrella and colleagues, with an educational roxanne from [employer]. Thrive Questionnaire Date Thrive assessed: 01/05/24 AUDIT C Alcohol Use Questionnaire (AUDIT-C) 2. How many drinks containing alcohol do you have on a typical day when you are drinking?: 1 or 2 3. How often do you have six or more drinks on one occasion?: Never Total Score: 0 DALILA-7 AMB Questionnaire DALILA-7 Date DALILA - 7 assessed: 12/09/23 Source: Developed by Drs. Kaden Perea, Rylan Estrella and colleagues, with an educational roxanne from [employer]. Review of Systems Const Denies chills and Denies weight loss Card Denies chest pain, Denies syncope, Denies irregular heart rhythm and Denies dyspnea Resp Denies chest congestion, Denies cough and Denies dyspnea GI Denies abdominal pain, Denies change in stool character, Denies nausea and Denies vomiting Musc Denies deformity and Denies joint swelling Neuro Denies syncope Physical exam (Primary Care) Vital Signs: Last Vital Signs Pulse 70 08/11/24 09:22 BP 142/76 H 08/11/24 09:22 Pulse Ox 95 08/11/24 09:22 Oxygen Delivery Method Room Air 08/11/24 09:22 BMI result Body Mass Index 32.9 Tobacco/Smoking Status: Tobacco use Status Tobacco use date assessed 01/05/24 08/11/24 09:23 Patient Tobacco Use Status Never used Tobacco 08/11/24 09:23 Tobacco use type Cigarette 08/11/24 09:23 e-Cigarette/Vaping Use Never Used 08/11/24 09:23 PHQ-9: PHQ-9 Score PHQ-9: Total score 0 08/11/24 09:38 Depression Screening Interpretation: Negative Thrive Assessment: Date of Thrive Assessment Date Thrive assessed 01/05/24 08/11/24 09:23 Const General: cooperative, comfortable, no acute distress and alert Neck Neck: Yes no lymphadenopathy Thyroid: Thyroid normal Resp Effort & Inspection: normal respiratory effort Auscultation: clear to auscultation bilaterally Percussion: percussion normal Cardio Jugular venous distension: no JVD Palpation: normal PMI Rate: regular rate Rhythm: regular rhythm Heart sounds: S1 normal heart sound present and S2 normal heart sound present GI Inspection: Yes normal to inspection Palpation (GI): No hepatosplenomegaly present Skin General skin exam: no rashes or lesions noted Extrem General: Yes no clubbing, cyanosis or edema Results AMB Hemoglobin A1c AMB Hemoglobin A1c 6.1 % Last Edit by Bessie Farmer CMA on 08/11/24 09 :38 Results Reviewed Results Reviewed: Laboratory Last Values Hgb A1c (Clinic) 6.1 % (4.0-6.0) H 08/11/24 09:23 Coding Level of Care Code Est Pt Level 3 (99976) Diagnoses Gait abnormality R26.9 Additional Codes PHQ-9 - 83608 - PHQ-9 Billing: Yes ([id number]) Assessment & Plan Assessment & Plan (1) Gait abnormality: Code(s): R26.9 - Unspecified abnormalities of gait and mobility Category: Medical Plan: CT reordered stat; ref to neuro Orders: Orders CT head/brain wo IV con Today R26.9 - Unspecified abnormalities of gait and mobility, R42 - Dizziness and giddiness AMB Hemoglobin A1c Today Z13.9 - Encounter for screening, unspecified Referrals Neurology Referral R26.9 - Unspecified abnormalities of gait and mobility Medications: New lorazepam 1 mg PO Q6H PRN 60 tabs 0RF anxiety
== END 2024-08-11 10:05 | disposition home or self-care (01) ==
PROVIDERS: PCP Internal Medicine; Visit Provider Internal Medicine
DX: Z13.9 Encounter for screening, unspecified (principal); R26.9 Unspecified abnormalities of gait and mobility

== ENCOUNTER → 2024-08-11 09:18 | Outpatient (BNVA) | payer MEDICARE, SELFPAY | PROVIDERS: PCP Internal Medicine; Visit Provider Internal Medicine | DX: R26.9 Unspecified abnormalities of gait and mobility (principal); E11.9 Type 2 diabetes mellitus without complications; I10 Essential (primary) hypertension | CPT/HCPCS: 83036; 96127; 99212 ==

== ENCOUNTER 2024-08-25 11:14 | Outpatient (REF) | payer MEDICARE, SELFPAY ==
--- OUTSIDE RECORDS SUMMARY | 2024-08-31 18:01 | XMS_ITS ---
Author Organization [facility] Address [address] [place] [address] Care Team Providers Care Container Shop Welder Name Role Phone Octaviano Scott MD Primary Care Provider Unavaila Kaden Lobo Unavailable [phone] REASON FOR VISIT screening,epigastric pain Encounters Encounter Location Date Provider Diagnosis [facility] [place] [address] [phone] [place]/25/2024 Kaden Artis PLAN OF TREATMENT No Information
--- OUTSIDE RECORDS SUMMARY | 2024-08-31 18:01 | XMS_ITS ---
Author Organization [facility] Address [address] [facility] [address] [place] [address] Care Team Providers Care Electronic Masking System Operator Name Role Phone Octaviano Scott MD Primary Care Provider Unavaila Kaden Lobo Unavailable [phone] REASON FOR VISIT epigastric pain PROBLEMS Problem Type ICD Code Onset Dates Problem Status W/U Status Risk SNOMED Code Notes Problem Gastro-esophagea l reflux disease without esophagitis (K21.9) Active confirmed Gastro-esophage al reflux disease without esophagitis (751067227) Problem Chronic gastritis (K29.50) Active confirmed Chronic gastritis (7137066) Encounters Encounter Location Date Provider [place] [facility] [place] [address] [place] [id number] 07/15/2024 Kaden Artis Gastro-esophageal reflux disease without esophagitis K21.9 ; Hiatal hernia K44.9 ; Chronic gastritis K29.50 and Abdominal pain R10.9 ASSESSMENTS Encounter Date Diagnosis Assessment Notes Treatment Notes Treatment Clinical Notes 07/15/2024 Gastro-esophageal reflux disease without esophagitis (ICD-10 - K21.9) 07/15/2024 Hiatal hernia (ICD-10 - K44.9) 07/15/2024 Chronic gastritis (ICD-10 - K29.50) 07/15/2024 Abdominal pain (ICD-10 - R10.9) PLAN OF TREATMENT No Information
--- OUTSIDE RECORDS SUMMARY | 2024-08-31 18:01 | XMS_ITS ---
Author Organization [facility] Address [address] [facility] [address] [place] [address] Care Team Providers Care Hub Cutter Name Role Phone Octaviano Scott MD Primary Care Provider Unavaila Kaden Lobo Unavailable [phone] REASON FOR VISIT cancel procedure 08/25/2024 Encounters Encounter Location Date Provider Diagnosis [facility] [address] [facility] [address] [place] [address] 08/11/2024 Kaden Artis PLAN OF TREATMENT No Information
--- OUTSIDE RECORDS SUMMARY | 2024-08-31 18:01 | XMS_ITS | Patient Health Record ---
Author Organization [facility] Address [address] [place] [address] Care Team Providers Care A Class Lineman Name Role Phone Sonia ZAMORA, Octaviano Primary Care Provider Kaden Arthur [phone] ALLERGIES No Known Allergies RESULTS Component Value Reference Range Notes Pathology (Not yet reviewed by provider) Interpretation: Performing Lab:[facility], [address] [place] [phone] Notes/Report: Glucose, Whole Blood Reviewed date:07/15/2024 06:21:15 PM Interpretation: Performing Lab:[facility], [address] [place] [phone] Notes/Report: Glucose, Whole Blood 111 60-115 mg/dL METER # : [id number] REASON FOR REFERRAL No Information MEDICATIONS Medication [...] pain, epigastric (R10.13) Active confirmed Epigastric pain (76987892) Problem Colon cancer screening (Z12.11) Active confirmed Colon cancer screening (292527593) Problem Gastro-esophagea l reflux disease without esophagitis (K21.9) Active confirmed Gastro-esophage al reflux disease without esophagitis (575030507) Problem Chronic gastritis (K29.50) Active confirmed Chronic gastritis (2112296) VITAL SIGNS Temperature 97.1 degrees Fahrenheit 05/19/2024 Blood pressure diastolic 00 mm Hg 05/19/2024 Height 5 ft 6 in in 05/19/2024 Blood pressure systolic 000 mm Hg 05/19/2024 Weight 209 lb 8 oz lbs 05/19/2024 BMI 33.81 kg/m2 05/19/2024 Encounters Encounter Location Date Provider Diagnosis [facility] [place] [address] [place] [id number] 08/25/2024 Kaden Artis [facility] [place] [address] [place] [id number] 07/15/2024 Kaden Artis Gastro-esophageal reflux disease without esophagitis K21.9 ; Hiatal hernia K44.9 ; Chronic gastritis K29.50 and Abdominal pain R10.9 [facility] [address] [place] [phone] 05/19/2024 Kaden Artis Abdominal pain, epigastric R10.13 and Colon cancer screening Z12.11 [facility] [address] [place] [phone] 07/06/2024 Kaden Artis [facility] [address] [address] 08/11/2024 Kaden Artis ASSESSMENTS Encounter Date Diagnosis Assessment Notes Treatment Notes Treatment Clinical Notes 07/15/2024 Gastro-esophageal reflux disease without esophagitis (ICD-10 - K21.9) 07/15/2024 Hiatal hernia (ICD-10 - K44.9) 05/19/2024 Colon cancer screening (ICD-10 - Z12.11) Needs cardiology clearance from Dr. Bautista after her workup and visit with him at the end of May,.. 05/19/2024 Abdominal pain, epigastric (ICD-10 - R10.13) Do not take Metformin the night before or on the morning of the procedures Try the Dicyclomine as needed for the discomfort. If that doesn't work then crop picker the Omeprazole prescription I will be sending over 07/15/2024 Chronic gastritis (ICD-10 - K29.50) 07/15/2024 Abdominal pain (ICD-10 - R10.9) PLAN OF TREATMENT Pending Test Test Name Order Date Pathology 07/15/2024 Future Test Test Name Order Date UPPER GI ENDOSCOPY 05/19/2024 COLONOSCOPY 05/19/2024 Insurance Providers Payer Name Payer Address Payer Phone Subscriber Number Group Number Insured Name Patient Relationship to Insured Coverage Start Date Coverage End Date [facility] [address] [place] [address] [id number] YNES STOLL Self - patient is the insured MEDICAL (GENERAL) HISTORY Medical History History ICD Code NIDDM Denies [place],CVA,Lung disease,renal disease Hyperlipdemia HTN ETT on 06/10/[address] Bautista Bladder cancer as below Surgical History Surgery Date(Month/Year) CCY 1999 Bladder cancer--cystoscopy 2010 JUSTIN 2019
== END 2024-08-25 11:15 | disposition home or self-care (01) ==
LOC: HO.CT 11:14
PROVIDERS: PCP Internal Medicine; Visit Provider Internal Medicine
DX: R26.9 Unspecified abnormalities of gait and mobility (principal); R42 Dizziness and giddiness
CPT/HCPCS: 70450

== ENCOUNTER 2024-10-22 15:06 | Outpatient (AMB) | payer MEDICARE, SELFPAY ==
--- NOTE | 2024-10-22 15:08 | AM.OFFWIN_ITS ---
Intake Vital Signs 10/22/24 15:16 Weight 204 lb BP 130/90 H Blood Pressure Location Rt brachial Position Sitting Pulse 87 Pulse Source Pulse Oximeter Temp 97.7 F Temp Source Oral Pulse Oximetry (%) 98 Oxygen Delivery Method Room Air Intake Visit Reasons: EP urinating blood Intake Note: Patient here for blood in urine that started this morning. Patient Tobacco Use Status: Never used Tobacco Allergies No Known Allergies Allergy (Verified 10/22/24 15:15) Do you need a note to return to daycare/school/sports/work: No HPI HPI Comments History of Present Illness Details This is a 74-year-old female who presented to the walk-in clinic complaining of hematuria. Patient states that she noticed her urine was slightly darker than usual yesterday but she thought she was dehydrated. She states her urine continued to get darker today. She noticed some suprapubic cramping radiating into her low back around 1-2 p.m. this afternoon. She then urinated and saw a significant amount of blood in the toilet. She reports increased urinary frequency with decreased urine volume as well as increased urinary urgency but she denies any dysuria. She denies any flank or back pain. She denies any fevers or chills. She denies any nausea/vomiting/diarrhea. Patient does report a history of bladder cancer approximately 14 years ago and she was followed by a urologist for about 6 years but she was discharged from their practice as she was cleared from a urological standpoint. She has had no further urological issues since then. Additionally, the patient reports a history of a hysterectomy. She denies any known history of kidney disease. She denies any abdominal or back trauma. [facility] Medical History Hx of sigmoidoscopy Bladder cancer Hyperlipidemia Hypertension Obesity Type 2 diabetes mellitus with obesity Diabetes mellitus Surgical History History of esophagogastroduodenoscopy (EGD) Hx of cystoscopy History of total abdominal hysterectomy History of bladder surgery H/O rectal polypectomy History of cholecystectomy Family History Father Hodgkin disease Mother Medical history unknown Social History Housing: House Are you a primary farm or ranch animal caretaker to a significant other at home: No Do you presently have visiting nurse or other home services: No Alcohol intake: never Patient Tobacco Use Status: Never used Tobacco Tobacco use type: Cigarette e-Cigarette/Vaping Use: Never Used Second Hand Smoke Exposure: No service: No Current occupational status: retired Current occupational exposures/hazards: No Cognitive needs: No Hearing needs: No Vision needs: Yes Review of Systems Const All systems reviewed & are unremarkable except as noted in HPI and below Reports no additional complaints Eyes Reports no additional complaints ENT Reports no additional complaints Card Reports no additional complaints Resp Reports no additional complaints GI Reports no additional complaints Reports no additional complaints Musc Reports no additional complaints Skin/Breast Reports system reviewed and no additional complaints, except as documented Neuro Reports no additional complaints Psych Reports no additional complaints Endo Reports no additional complaints Elver/Lymph Reports no additional complaints Aller/Immun Reports no additional complaints Physical Exam Const Other: Vital signs reviewed. Constitutional: Non-toxic appearing. No acute distress. Well-developed and well-nourished. HEENT: Normocephalic and atraumatic. Skin: Warm and dry. No rashes or lesions noted. Neck: Full and painless range of motion. No cervical lymphadenopathy. Cardio: Regular rate and rhythm. No murmurs, gallops, or rubs. No lower extremity edema. No JVD. Pulmonary: No respiratory distress. No accessory muscle usage. Clear to auscultation bilaterally without wheezing, crackles, or rhonchi. Gastrointestinal: Soft, nontender, and nondistended in all 4 quadrants. No suprapubic tenderness to palpation. Normoactive bowel sounds in all 4 quadrants. Genitourinary: No CVA tenderness. There is a significant amount of sophie blood in the patient's urine. Musculoskeletal: Normal range of motion in joints throughout the body. No deformity or other signs of injury. Neuro: Alert and oriented x4. Cranial nerves 2-12 grossly intact. No focal deficits appreciated. Psych: Normal mood and affect. Assessment & Plan Assessment & Plan (1) UTI (urinary tract infection): Code(s): N39.0 - Urinary tract infection, site not specified Qualifiers: Urinary tract infection type: acute cystitis Hematuria presence: with hematuria Qualified Code(s): N30.01 - Acute cystitis with hematuria (2) Hematuria: Code(s): R31.9 - Hematuria, unspecified Qualifiers: Hematuria type: gross Qualified Code(s): R31.0 - Gross hematuria Plan This is a 74-year-old female with past medical history significant for bladder cancer approximately 14 years ago who presented to the walk-in clinic complaining of gross hematuria. She reports associated urinary frequency/urgency with decreased urine volume. She has no flank/back pain and no CVA tenderness bilaterally to suggest acute pyelonephritis or nephrolithiasis. Her urine dipstick was positive for 2+ leukocyte esterase and 3+ blood. Her urine was sent for culture. Patient appears to have a urinary tract infection and she will be treated with PO trimethoprim/sulfamethoxazole 160/800 mg twice daily x 5 days. I also recommended symptomatic management including increased fluids and ibuprofen/acetaminophen as needed for pain as long as patient has no medical contraindications. Given patient's history of bladder cancer as well as significant gross hematuria, I also recommended that the patient call her urology office in 3 days for further evaluation/management. Patient was advised to follow-up here or proceed directly to the emergency room if they were to d evelop fever/chills, nausea/vomiting, flank/back pain, or worsening/persistent symptoms. Patient verbalizes understanding and they are in agreement with the plan. Orders: Orders Urine Culture Today N39.0 - Urinary tract infection, site not specified Medications: New sulfamethoxazole-trimethoprim 800-160 mg (Bactrim DS) 1 tab PO BID 10 tabs 0RF Coding Level of Care Code Est Pt Level 3 (20005) Diagnoses Acute cystitis with hematuria N30.01 Urinary tract infection type: acute cystitis Hematuria presence: with hematuria Gross hematuria R31.0 Hematuria type: gross
[2024-10-22 15:16] VITALS: BP 130/90; PULSE 87; TEMP 36.5; O2SAT 98
== END 2024-10-22 15:53 | disposition home or self-care (01) ==
PROVIDERS: PCP Internal Medicine; Visit Provider Physician Assistant Medical
DX: N30.01 Acute cystitis with hematuria (principal)

== ENCOUNTER 2024-10-22 15:06 | Outpatient (REF) | payer MEDICARE, SELFPAY | END 2024-10-22 15:07 | disposition home or self-care (01) | LOC: HO.LNP 15:06 | PROVIDERS: PCP Internal Medicine; Visit Provider Physician Assistant Medical | DX: N30.01 Acute cystitis with hematuria (principal) | CPT/HCPCS: 87086; 99212 ==

== ENCOUNTER 2024-11-02 07:59 | Outpatient (REF) | payer MEDICARE, SELFPAY ==
--- OUTSIDE RECORDS SUMMARY | 2024-11-02 08:03 | XMS_ITS ---
Author Organization [facility] Address [address] [facility] [address] [place] [address] Care Team Providers Care Paint Stockman Name Role Phone Octaviano Scott MD Primary Care Provider Unavaila Kaden Lobo Unavailable [phone] REASON FOR VISIT epigastric pain PROBLEMS Problem Type ICD Code Onset Dates Problem Status W/U Status Risk SNOMED Code Notes Problem Gastro-esophagea l reflux disease without esophagitis (K21.9) Active confirmed Gastro-esophage al reflux disease without esophagitis (708341754) Problem Chronic gastritis (K29.50) Active confirmed Chronic gastritis (4908529) Encounters Encounter Location Date Provider Diagnosis [facility] [place] [address] [place] [id number] 07/15/2024 Kaden Artis Gastro-esophageal reflux disease without [...]
--- OUTSIDE RECORDS SUMMARY | 2024-11-02 08:03 | XMS_ITS | Patient Health Record ---
Author Organization [facility] Address [address] [place] [address] Care Team Providers Care Double Cutter Name Role Phone Sonia ZAMORA, Octaviano Primary Care Provider Kaden Arthur [phone] ALLERGIES No Known Allergies RESULTS Component Value Reference Range Notes Pathology (Not yet reviewed by provider) Interpretation: Performing Lab:[facility], [address] [place] [phone] Notes/Report: Glucose, Whole Blood Reviewed date:07/15/2024 06:21:15 PM Interpretation: Performing Lab:[facility], [address] [place] [address] Notes/Report: Glucose, Whole Blood 111 60-115 mg/dL METER # : [id number] REASON FOR REFERRAL No Information MEDICATIONS Medication [...] pain, epigastric (R10.13) Active confirmed Epigastric pain (94492037) Problem Colon cancer screening (Z12.11) Active confirmed Colon cancer screening (980328902) Problem Gastro-esophagea l reflux disease without esophagitis (K21.9) Active confirmed Gastro-esophage al reflux disease without esophagitis (032026697) Problem Chronic gastritis (K29.50) Active confirmed Chronic gastritis (8508051) VITAL SIGNS Temperature 97.1 degrees Fahrenheit 05/19/2024 Blood pressure diastolic 00 mm Hg 05/19/2024 Height 5 ft 6 in in 05/19/2024 Blood pressure systolic 000 mm Hg 05/19/2024 Weight 209 lb 8 oz lbs 05/19/2024 BMI 33.81 kg/m2 05/19/2024 Encounters Encounter Location Date Provider [place] [facility] [place] [address] [place] [id number] 08/25/2024 Kaden Artis [facility] [place] [address] [place] [id number] 07/15/2024 Kaden Artis Gastro-esophageal reflux disease without esophagitis K21.9 ; Hiatal hernia K44.9 ; Chronic gastritis K29.50 and Abdominal pain R10.9 [facility] [address] [place] [phone] 05/19/2024 Kaden Artis Abdominal pain, epigastric R10.13 and Colon cancer screening Z12.11 [facility] [address] [place] [phone] 07/06/2024 Kaden Artis [facility] [address] [phone] 08/11/2024 Kaden Artis ASSESSMENTS Encounter Date Diagnosis [...] the discomfort. If that doesn't work then mushroom picker the Omeprazole prescription I will be [...] Insured Coverage Start Date Coverage End Date [facility] [address] [place] [address] [id number] Y[employer]OLL Self - patient is the insured MEDICAL (GENERAL) HISTORY Medical History History ICD Code NIDDM Denies [place],CVA,Lung disease,renal disease Hyperlipdemia HTN ETT on 06/10/[address] Bautista Bladder cancer as below Surgical History Surgery Date(Month/Year) CCY 1999 Bladder cancer--cystoscopy 2010 [facility] 2019
--- OUTSIDE RECORDS SUMMARY | 2024-11-02 08:03 | XMS_ITS ---
Author Organization [facility] Address [address] [facility] [address] [place] [address] Care Team Providers Care Laborer/Grade Check Name Role Phone Octaviano Scott MD Primary Care Provider Unavaila Kaden Lobo Unavailable [phone] REASON FOR VISIT screening,epigastric pain Encounters Encounter Location Date Provider Diagnosis [facility] [place] [address], [place] [phone] 08/25/2024 Kaden Artis PLAN OF TREATMENT No Information
--- OUTSIDE RECORDS SUMMARY | 2024-11-02 08:04 | XMS_ITS ---
Author Organization [facility] Address [address] [facility] [address] [place] [address] Care Team Providers Care Gluing Machine Operator Electronic Name Role Phone Octaviano Scott MD Primary Care Provider Unavaila Kaden Lobo Unavailable [phone] REASON FOR VISIT cancel procedure 08/25/2024 Encounters Encounter Location Date Provider Diagnosis [facility] [address] [facility] [address] [place] [address] 08/11/2024 Kaden Artis PLAN OF TREATMENT No Information
[2024-11-02 09:10] LABS: Estimated Average Glucose 143 mg/dL; Hemoglobin A1C 178.3375 umol/L; Hemoglobin A1c % 6.6 % (<6.0); Total Hemoglobin (HGBA1C) 3636.7948 umol/L
[2024-11-02 09:11] LABS: Cholesterol 129 mg/dL (<200); Glucose Fasting 138 mg/dL (60-99); HDL Cholesterol 32 mg/dL (>40); LDL Cholesterol Calculated 71 mg/dL (<100); Triglycerides 130 mg/dL (<150)
== END 2024-11-02 08:00 | disposition home or self-care (01) ==
LOC: HO.LAB 07:59
PROVIDERS: PCP Internal Medicine; Visit Provider Internal Medicine
DX: N39.0 Urinary tract infection, site not specified (principal); Z13.220 Encounter for screening for lipoid disorders; R73.9 Hyperglycemia, unspecified
CPT/HCPCS: 36415; 80061; 82947; 83036; 87086

== ENCOUNTER 2024-11-03 13:15 | Outpatient (AMB) | payer MEDICARE, SELFPAY ==
--- NOTE | 2024-11-03 13:21 | A.OFFPC_ITS ---
Vital Signs 11/03/24 13:23 Height 5 ft 6 in Weight 209 lb 8 oz BMI 33.8 BP 130/80 Blood Pressure Location Lt brachial Position Sitting Pulse 67 Pulse Source Pulse Oximeter Temp 97.3 F Temp Source Skin Pulse Oximetry (%) 98 Oxygen Delivery Method Room Air Intake Visit Reasons: follow up appt Intake Note: Patient is here to follow up on HLD, DM. Inspector Assemblies And Installations Required: No Overage Shortage And Damage Clerk: Not Required per policy Accompanied by: Self / Same As Patient Allergies No Known Allergies Allergy (Verified 11/03/24 13:23) Medication List - Last Reconciled 11/04/24 by Octaviano Scott MD atorvastatin 10 mg PO DAILY blood sugar diagnostic to check blood sugars twice a day blood-glucose meter (AmideBio Ultra2 Meter) Use to check blood sugars twice a day fenofibrate 160 mg PO DAILY lancets (Amide[employer] Delica Lancets) to use twice a day lorazepam 1 mg PO Q6H PRN metformin 500 mg PO BID omeprazole 20 mg PO QAM valsartan 320 mg PO DAILY Tobacco use date assessed: 11/03/24 Fall risk assessment: No Falls in past year Last assessed Fall Risk: 11/03/24 Dental Screening Dental Screen Date: 11/03/24 Did you have a dental visit in the last 12 months?: Yes Did you have a dental problem in the last 6 months where you did not have access to dental care?: No Was dental information given to patient?: Patient has dentist HPI follow up appt HPI Details diabetes hyperlipidemia and hypertension; stable and compliant [facility] Medical History Hx of sigmoidoscopy Bladder cancer Hyperlipidemia Hypertension Obesity Type 2 diabetes mellitus with obesity Diabetes mellitus Surgical History History of esophagogastroduodenoscopy (EGD) Hx of cystoscopy History of total abdominal hysterectomy History of bladder surgery H/O rectal polypectomy History of cholecystectomy Family History Father Hodgkin disease Mother Medical history unknown Social History (Updated 11/03/24 @ 13:28 by DAVION Rubi) Housing: House Are you a primary laboratory animal caretaker to a significant other at home: No Do you presently have visiting nurse or other home services: No Alcohol intake: current Alcohol intake frequency: holidays/special occasions only Patient Tobacco Use Status: Never used Tobacco Tobacco use type: Cigarette e-Cigarette/Vaping Use: Never Used Second Hand Smoke Exposure: No service: No Current occupational status: retired Current occupational exposures/hazards: No Cognitive needs: No Hearing needs: No Vision needs: Yes (Glasses) Questionnaire PHQ-9 Over the last 2 weeks, how often have you been bothered by any of the following problems? 1. Little interest or pleasure in doing things: not at all 2. Feeling down, depressed, or hopeless: not at all 3. Trouble falling or staying asleep, or sleeping too much: not at all 4. Feeling tired or having little energy: not at all 5. Poor appetite or overeating: not at all 6. Feeling bad about yourself - or that you are a failure or have let yourself or your family down: not at all 7. Trouble concentrating on things, such as reading the newspaper or watching television: not at all 8. Moving or speaking so slowly that other people could have noticed. Or the opposite - being so fidgety or restless that you have been moving around a lot more than usual: not at all 9. Thoughts that you would be better off or of hurting yourself in some way: not at all Total score: 0 Depression Screening Interpretation: Negative Depression Screening Done: Yes Source: Developed by Drs. Kaden Perea, Charlee Cerrato, Rylan Richter and colleagues, with an educational roxanne from [employer]. Thrive Questionnaire Date Thrive assessed: 11/03/24 I am a: Patient What is your living situation today?: I have a steady place to live Within the past 12 months, did the food you bought not last and you didn't have the money to get more?: Never true Within the past 12 months, did you worry whether your food would run out before you got money to buy more?: Never true Do you have trouble paying for medicines?: No Do you have trouble getting transportation to medical appointments?: No Do you have trouble paying your heating and electricity bill?: No Do you have trouble taking care of your child, family member or friend?: No Do you have trouble with day-to-day activities such as bathing, preparing meals, shopping, managing finances, etc.?: No Are you currently unemployed and looking for a job?: No Are you interested in more education?: No Please select the resources that you would like help with: None Currently or been in a relationship where the following occur: No concerns reported THRIVE Score: 0 AUDIT C Alcohol Use Questionnaire (AUDIT-C) 2. How many drinks containing alcohol do you have on a typical day when you are drinking?: 1 or 2 3. How often do you have six or more drinks on one occasion?: Never Total Score: 0 DALILA-7 AMB Questionnaire DALILA-7 Date DALILA - 7 assessed: 11/03/24 Feeling nervous, anxious, or on edge: 0 = Not at all Not being able to stop or control worryin = Not at all Worrying too much about different things: 0 = Not at all Trouble relaxin = Not at all Being so restless that it is hard to sit still: 0 = Not at all Becoming easily annoyed or irritable: 0 = Not at all Feeling afraid as if something awful might happen: 0 = Not at all Total DALILA-7 score (0-4 normal; 5-9 mild; 10-14 moderate; 15-21 severe): 0 Source: Developed by Drs. Kaden Perea, Charlee Cerrato, Rylan Richter and colleagues, with an educational roxanne from [employer]. Review of Systems Const Denies chills, Denies headache(s) and Denies weight loss ENT Denies headache(s) Card Denies chest pain, Denies syncope, Denies irregular heart rhythm and Denies dy spnea Resp Denies chest congestion, Denies cough and Denies dyspnea GI Denies abdominal pain, Denies change in stool character, Denies nausea and Thomas es vomiting Musc Denies deformity and Denies joint swelling Neuro Denies syncope and Denies headache(s) Physical exam (Primary Care) Vital Signs: Last Vital Signs Temp 97.3 F 11/03/24 13:23 Pulse 67 11/03/24 13:23 BP 130/80 11/03/24 13:23 Pulse Ox 98 11/03/24 13:23 Oxygen Delivery Method Room Air 11/03/24 13:23 BMI result Body Mass Index 33.8 Tobacco/Smoking Status: Tobacco use Status Tobacco use date assessed 11/03/24 11/03/24 13:29 Patient Tobacco Use Status Never used Tobacco 11/03/24 13:28 Tobacco use type Cigarette 11/03/24 13:28 e-Cigarette/Vaping Use Never Used 11/03/24 13:28 PHQ-9: PHQ-9 Score PHQ-9: Total score 0 11/03/24 13:22 Depression Screening Interpretation: Negative Thrive Assessment: Date of Thrive Assessment Date Thrive assessed 11/03/24 11/03/24 13:22 Currently or been in a relationship where the following occur: No concerns reported Const General: cooperative, comfortable, no acute distress and alert Neck Neck: Yes no lymphadenopathy Thyroid: Thyroid normal Resp Effort & Inspection: normal respiratory effort Auscultation: clear to auscultation bilaterally Percussion: percussion normal Cardio Jugular venous distension: no JVD Palpation: normal PMI Rate: regular rate Rhythm: regular rhythm Heart sounds: S1 normal heart sound present and S2 normal heart sound present GI Inspection: Yes normal to inspection Palpation (GI): No hepatosplenomegaly present Skin General skin exam: no rashes or lesions noted Extrem General: Yes no clubbing, cyanosis or edema Coding Level of Care Code Est Pt Level 4 (86483) Diagnoses Type 2 diabetes mellitus with obesity E11.69; E66.9 Hypertension I10 Hyperlipidemia E78.5 Assessment & Plan Assessment & Plan (1) Type 2 diabetes mellitus with obesity: Code(s): E11.69 - Type 2 diabetes mellitus with other specified complication; E66.9 - Obesity, unspecified Category: Medical Plan: stable; same rx (2) Hypertension: Code(s): I10 - Essential (primary) hypertension Category: Medical Plan: stable; same rx (3) Hyperlipidemia: Code(s): E78.5 - Hyperlipidemia, unspecified Category: Medical Plan: stable; same rx
[2024-11-03 13:23] VITALS: BP 130/80; PULSE 67; TEMP 36.3; O2SAT 98; BMI 33.8
--- OUTSIDE RECORDS SUMMARY | 2024-11-03 14:34 | XMS_ITS ---
Author Organization [facility] Address [address] [place] [address] Care Team Providers Care Game Master Name Role Phone Octaviano Scott MD Primary Care Provider Unavaila Kaden Lobo Unavailable [phone] REASON FOR VISIT epigastric pain PROBLEMS Problem Type ICD Code Onset Dates Problem Status W/U Status Risk SNOMED Code Notes Problem Gastro-esophagea l reflux disease without esophagitis (K21.9) Active confirmed Gastro-esophage al reflux disease without esophagitis (932219231) Problem Chronic gastritis (K29.50) Active confirmed Chronic gastritis (4419060) Encounters Encounter Location Date Provider Diagnosis [facility] [place] [address] [place] [id number] 07/15/2024 Kaden Artis Gastro-esophageal reflux disease without [...]
--- OUTSIDE RECORDS SUMMARY | 2024-11-03 14:34 | XMS_ITS | Patient Health Record ---
Author Organization [facility] Address [address] [place] [address] Care Team Providers Care Ticket Printer Name Role Phone Sonia ZAMORA, Octaviano Primary Care Provider Kaden Arthur [phone] ALLERGIES No Known Allergies RESULTS Component Value Reference Range Notes Pathology (Not yet reviewed by provider) Interpretation: Performing Lab:[facility], [address] [place] [id number] Notes/Report: Glucose, Whole Blood Reviewed date:07/15/2024 06:21:15 PM Interpretation: Performing Lab:[facility], [address] [place] [address] Notes/Report: Glucose, Whole Blood 111 60-115 mg/dL METER # : [id number] REASON FOR REFERRAL No Information MEDICATIONS Medication [...] pain, epigastric (R10.13) Active confirmed Epigastric pain (00759587) Problem Colon cancer screening (Z12.11) Active confirmed Colon cancer screening (162444552) Problem Gastro-esophagea l reflux disease without esophagitis (K21.9) Active confirmed Gastro-esophage al reflux disease without esophagitis (029532818) Problem Chronic gastritis (K29.50) Active confirmed Chronic gastritis (0113891) VITAL SIGNS Temperature 97.1 degrees Fahrenheit 05/19/2024 Blood pressure diastolic 00 mm Hg 05/19/2024 Height 5 ft 6 in in 05/19/2024 Blood pressure systolic 000 mm Hg 05/19/2024 Weight 209 lb 8 oz lbs 05/19/2024 BMI 33.81 kg/m2 05/19/2024 Encounters Encounter Location Date Provider Diagnosis [facility] [place] Out[place] [address] [place] [id number] 08/25/2024 Kaden Artis [facility] [place] [place] Outpatient [address] [place] [id number] 07/15/2024 Kaden Artis Gastro-esophageal reflux disease without esophagitis K21.9 ; Hiatal hernia K44.9 ; Chronic gastritis K29.50 and Abdominal pain R10.9 [facility] [address] [place] [phone] 05/19/2024 Kaden Artis Abdominal pain, epigastric R10.13 and Colon cancer screening Z12.11 [facility] [address] [place] [phone] 07/06/2024 Kaden Artis [facility] [address] [address] 08/11/2024 Kaden Artis ASSESSMENTS Encounter Date Diagnosis [...] the discomfort. If that doesn't work then pick up driver the Omeprazole prescription I will be sending [...] Insured Coverage Start Date Coverage End Date [facility] [address] [place] [address] [id number] [employer] Self - patient is the insured MEDICAL (GENERAL) HISTORY Medical History History ICD Code NIDDM Denies [place],CVA,Lung disease,renal disease Hyperlipdemia HTN ETT on 06/10/[address] Bautista Bladder cancer as below Surgical History Surgery Date(Month/Year) CCY 1999 Bladder cancer--cystoscopy 2010 JUSTIN 2019
--- OUTSIDE RECORDS SUMMARY | 2024-11-03 14:34 | XMS_ITS ---
Author Organization [facility] Address [address] [place] [address] Care Team Providers Care Anhydrous Ammonia Production Supervisor Name Role Phone Octaviano Scott MD Primary Care Provider Unavaila Kaden Lobo Unavailable [phone] REASON FOR VISIT cancel procedure 08/25/2024 Encounters Encounter Location Date Provider Diagnosis [facility] [address] [place] [address] 08/11/2024 Kaden Artis PLAN OF TREATMENT No Information
--- OUTSIDE RECORDS SUMMARY | 2024-11-03 14:34 | XMS_ITS ---
Author Organization [facility] Address [address] [place] [address] Care Team Providers Care Director Of Operations Home Health Name Role Phone Octaviano Scott MD Primary Care Provider Unavaila Kaden Lobo Unavailable [phone] REASON FOR VISIT screening,epigastric pain Encounters Encounter Location Date Provider Diagnosis [facility] [place] Out[place] [address] [place], [place] [phone] 08/25/2024 Kaden Artis PLAN OF TREATMENT No Information
== END 2024-11-03 14:19 | disposition home or self-care (01) ==
PROVIDERS: PCP Internal Medicine; Visit Provider Internal Medicine
DX: E11.69 Type 2 diabetes mellitus with other specified complication (principal); E66.9 Obesity, unspecified; Z68.33 Body mass index [BMI] 33.0-33.9, adult; I10 Essential (primary) hypertension; E78.5 Hyperlipidemia, unspecified

== ENCOUNTER → 2024-11-03 13:15 | Outpatient (BNVA) | payer MEDICARE, SELFPAY | PROVIDERS: PCP Internal Medicine; Visit Provider Internal Medicine | DX: E11.69 Type 2 diabetes mellitus with other specified complication (principal); E66.9 Obesity, unspecified; E78.5 Hyperlipidemia, unspecified; I10 Essential (primary) hypertension | CPT/HCPCS: 99212 ==

== ENCOUNTER 2025-02-16 12:32 | Outpatient (AMB) | payer MEDICARE, SELFPAY ==
[2025-02-16 12:33] VITALS: BP 136/80; PULSE 60; O2SAT 96; BMI 33.8
--- NOTE | 2025-02-16 12:33 | MHC.PC.OV ---
Vital Signs 02/16/25 12:33 Height 5 ft 6 in Weight 209 lb 6 oz BMI 33.8 BP 136/80 Blood Pressure Location Lt brachial Position Sitting Pulse 60 Pulse Source Pulse Oximeter Pulse Oximetry (%) 96 Oxygen Delivery Method Room Air Intake Visit Reasons: Transfer care from Dr. Scott [facility] f/u Lead Qa Analyst Required: No Accompanied by: Self / Same As Patient Allergies No Known Allergies Allergy (Verified 02/21/25 00:54) Medication List - Last Reconciled 02/21/25 by Tunde Lassiter MD atorvastatin 10 mg PO DAILY blood sugar diagnostic to check blood sugars twice a day blood-glucose meter ([employer] Ultra2 Meter) Use to check blood sugars twice a day fenofibrate 160 mg PO DAILY lancets (SpringbotTouch Delica Lancets) to use twice a day metformin 500 mg PO BID valsartan 320 mg PO DAILY Tobacco use date assessed: 02/16/25 Fall risk assessment: No Falls in past year Last assessed Fall Risk: 02/16/25 Dental Screening Dental Screen Date: 02/16/25 Did you have a dental visit in the last 12 months?: No Did you have a dental problem in the last 6 months where you did not have access to dental care?: No Was dental information given to patient?: Patient has dentist HPI Transfer care from Dr. Scott [facility] f/u HPI Details Patient comes in today for her follow up visit - she is transferring over from Dr. Scott, who retired from the practice a couple of months ago Patient states that she feels okay She denies any headaches or dizziness Denies any chest pains, no SOB No nausea/vomiting, no abdominal pain No change in bowel habits noted [facility] Medical History (Updated 02/21/25 @ 01:33 by Tunde Lassiter MD) Obesity (BMI 30-39.9) Mixed hyperlipidemia Essential hypertension Hx of sigmoidoscopy Bladder cancer Diabetes mellitus Surgical History History of esophagogastroduodenoscopy (EGD) Hx of cystoscopy History of total abdominal hysterectomy History of bladder surgery H/O rectal polypectomy History of cholecystectomy Family History Father Hodgkin disease Mother Medical history unknown Social History Housing: House Are you a primary customer care assistant to a significant other at home: No Do you presently have visiting nurse or other home services: No Alcohol intake: current Alcohol intake frequency: holidays/special occasions only Patient Tobacco Use Status: Never used Tobacco Tobacco use type: Cigarette e-Cigarette/Vaping Use: Never Used Second Hand Smoke Exposure: No service: No Current occupational status: retired Current occupational exposures/hazards: No Cognitive needs: No Hearing needs: No Vision needs: Yes (Glasses) Questionnaire PHQ-9 Over the last 2 weeks, how often have you been bothered by any of the following problems? 1. Little interest or pleasure in doing things: not at all 2. Feeling down, depressed, or hopeless: not at all 3. Trouble falling or staying asleep, or sleeping too much: not at all 4. Feeling tired or having little energy: not at all 5. Poor appetite or overeating: not at all 6. Feeling bad about yourself - or that you are a failure or have let yourself or your family down: not at all 7. Trouble concentrating on things, such as reading the newspaper or watching television: not at all 8. Moving or speaking so slowly that other people could have noticed. Or the opposite - being so fidgety or restless that you have been moving around a lot more than usual: not at all 9. Thoughts that you would be better off or of hurting yourself in some way: not at all Total score: 0 Depression Screening Interpretation: Negative Depression Screening Done: Yes 81104 - PHQ-9 Billing: Yes Source: Developed by Drs. Kaden Perea, Charlee Cerrato, Rylan Richter and colleagues, with an educational roxanne from [employer] Thrive Questionnaire Date Thrive assessed: 02/16/25 I am a: Patient What is your living situation today?: I have a steady place to live Within the past 12 months, did the food you bought not last and you didn't have the money to get more?: Never true Within the past 12 months, did you worry whether your food would run out before you got money to buy more?: Never true Do you have trouble paying for medicines?: No Do you have trouble getting transportation to medical appointments?: No Do you have trouble paying your heating and electricity bill?: No Do you have trouble taking care of your child, family member or friend?: No Do you have trouble with day-to-day activities such as bathing, preparing meals, shopping, managing finances, etc.?: No Are you currently unemployed and looking for a job?: No Are you interested in more education?: No Please select the resources that you would like help with: None Currently or been in a relationship where the following occur: No concerns reported THRIVE Score: 0 AUDIT C Alcohol Use Questionnaire (AUDIT-C) 1. How often do you have a drink containing alcohol?: Monthly or less 2. How many drinks containing alcohol do you have on a typical day when you are drinking?: 1 or 2 3. How often do you have six or more drinks on one occasion?: Never Total Score: 1 Score Reviewed/Action Taken: Yes DALILA-7 AMB Questionnaire DALILA-7 Date DALILA - 7 assessed: 02/16/25 Feeling nervous, anxious, or on edge: 0 = Not at all Not being able to stop or control worryin = Not at all Worrying too much about different things: 0 = Not at all Trouble relaxin = Not at all Being so restless that it is hard to sit still: 0 = Not at all Becoming easily annoyed or irritable: 0 = Not at all Feeling afraid as if something awful might happen: 0 = Not at all Total DALILA-7 score (0-4 normal; 5-9 mild; 10-14 moderate; 15-21 severe): 0 Source: Developed by Drs. Kaden Perea, Charlee Cerrato, Rylan Richter and colleagues, with an educational roxanne from [employer] Review of Systems Const Denies chills, Denies fatigue, Denies fever(s) and Denies headache(s) ENT Denies dysphagia, Denies dizziness, Denies otalgia, Denies headache(s), Denies neck pain, Denies odynophagia and Denies sore throat Card Denies chest pain, Denies rapid heart rate, Denies palpitations and Denies dyspnea Resp Denies chest congestion, Denies cough and Denies dyspnea GI Denies abdominal pain, Denies constipation, Denies dysphagia, Denies heartburn, Denies diarrhea, Denies nausea, Denies odynophagia and Denies vomiting Denies difficulty voiding, Denies nocturia, Denies dysuria and Denies urinary urgency Musc Denies back pain and Denies neck pain Skin/Breast Denies rash Neuro Denies dizziness and Denies headache(s) Endo Denies fatigue and Denies palpitations Physical exam (Primary Care) Vital Signs: Last Vital Signs Pulse 60 02/16/25 12:33 BP 136/80 02/16/25 12:33 Pulse Ox 96 02/16/25 12:33 Oxygen Delivery Method Room Air 02/16/25 12:33 BMI result Body Mass Index 33.8 Tobacco/Smoking Status: Tobacco use Status Tobacco use date assessed 02/16/25 02/16/25 12:39 Patient Tobacco Use Status Never used Tobacco 02/16/25 12:39 Tobacco use type Cigarette 02/16/25 12:39 e-Cigarette/Vaping Use Never Used 02/16/25 12:39 PHQ-9: PHQ-9 Score PHQ-9: Total score 0 02/16/25 13:18 Depression Screening Interpretation: Negative Thrive Assessment: Date of Thrive Assessment Date Thrive assessed 02/16/25 02/16/25 12:39 Currently or been in a relationship where the following occur: No concerns reported Const General: no acute distress and alert HENMT Ears: TM's normal bilaterally and EAC's normal Throat: Yes posterior oropharynx normal and Yes tonsils normal (no TP congestion) Neck Neck: Yes supple and No lymphadenopathy Thyroid: Thyroid normal Resp Auscultation: clear to auscultation bilaterally, no rales and no wheezes Cardio Rate: regular rate Rhythm: regular rhythm Heart sounds: no murmurs GI Palpation (GI): Soft to palpation and nontender Auscultation: normal bowel sounds General: Yes no CVA tenderness Back/Spine/Pelvis Back: no CVA tenderness Thoracic/Lumbar Spine: No lumbar spinal tenderness Skin Rashes: no rashes Extrem General: Yes no clubbing, cyanosis or edema Coding Level of Care Code Est Pt Level 4 (19304) Diagnoses Type 2 diabetes mellitus without complication, without long-term current use of insulin E11.9 Diabetes mellitus type: type 2 Diabetes mellitus director long term care insulin use: without director long term care use Diabetes mellitus complication status: without complication Essential hypertension I10 Mixed hyperlipidemia E78.2 Malignant neoplasm of urinary bladder, unspecified site C67.9 Bladder location: unspecified site Obesity (BMI 30-39.9) E66.9 Additional Codes PHQ-9 - 39048 - PHQ-9 Billing: Yes ([id number]) Assessment & Plan Assessment & Plan (1) Diabetes mellitus: Comment: 20 min reviewing chart eval pt and documenting Code(s): E11.9 - Type 2 diabetes mellitus without complications Category: Medical Qualifiers: Diabetes mellitus type: type 2 Diabetes mellitus director long term care insulin use: without director long term care use Diabetes mellitus complication status: without complication Qualified Code(s): E11.9 - Type 2 diabetes mellitus without complications Plan: Patient's HgbA1c was at 6.6% when last checked back in October 2024 - goal is at least <7.0% Reinforced diabetic diet Continue Metformin 500 mg BID Will recheck patient's FBS and HgbA1c in 4 months for follow up (2) Essential hypertension: Code(s): I10 - Essential (primary) hypertension Category: Medical Plan: Reinforced low sodium diet - goal is systolic BP of at least 130 to 140 mm or less Continue Valsartan 320 mg QD Patient is reminded to have her blood pressure monitored regularly (3) Mixed hyperlipidemia: Code(s): E78.2 - Mixed hyperlipidemia Category: Medical Plan: Her cholesterol levels were at goal when they were last checked in October 2024 Reinforced low cholesterol diet Continue Atorvastatin 10 mg QD and Fenofibrate 160 mg QD Will recheck his labs and fasting lipids in 4 months for follow up (4) Bladder cancer: Comment: Papillary urothelial, high grade Code(s): C67.9 - Malignant neoplasm of bladder, unspecified Category: Medical Qualifiers: Bladder location: unspecified site Qualified Code(s): C67.9 - Malignant neoplasm of bladder, unspecified Plan: S/P Tx with surgical resection and Mitomycin about 14 years ago (2010) Recent work ups done to further evaluate her hematuria, including cystoscopy, all came back negative for cancer recurrence Follow up with urology as scheduled for continuing surveillance (5) Obesity (BMI 30-39.9): Code(s): E66.9 - Obesity, unspecified Category: Medical Plan: Reinforced diet/exercise as tolerated/lose weight Plan Follow up in 4 months Orders: Orders Complete Blood Count Auto Diff 4 Months D64.9 - Anemia, unspecified Comprehensive [place]. Panel Fast 4 Months E78.00 - Pure hypercholesterolemia, unspecified Lipid Panel 4 Months E78.00 - Pure hypercholesterolemia, unspecified Hemoglobin A1c 4 Months E11.9 - Type 2 diabetes mellitus without complications Microalbumin, Random (w Creat) 4 Months E11.9 - Type 2 diabetes mellitus without complications UA CC w/rflx Micro + Cult 4 Months R30.0 - Dysuria TSH reflex Free T4 4 Months E78.00 - Pure hypercholesterolemia, unspecified Vitamin B12 and Folate 4 Months E53.8 - Deficiency of other specified B group vitamins Vitamin D 25-OH Total 4 Months E55.9 - Vitamin D deficiency, unspecified
== END 2025-02-16 13:21 | disposition home or self-care (01) ==
LOC: HO.HMCH 12:32
PROVIDERS: PCP Internal Medicine; Visit Provider Internal Medicine
DX: E11.9 Type 2 diabetes mellitus without complications (principal); C67.9 Malignant neoplasm of bladder, unspecified; E66.9 Obesity, unspecified; Z68.33 Body mass index [BMI] 33.0-33.9, adult; I10 Essential (primary) hypertension; E78.2 Mixed hyperlipidemia

== ENCOUNTER → 2025-02-16 12:32 | Outpatient (BNVA) | payer MEDICARE, SELFPAY | PROVIDERS: PCP Internal Medicine; Visit Provider Internal Medicine | DX: E11.9 Type 2 diabetes mellitus without complications (principal); E78.2 Mixed hyperlipidemia; I10 Essential (primary) hypertension; C67.9 Malignant neoplasm of bladder, unspecified; E66.9 Obesity, unspecified; Z68.33 Body mass index [BMI] 33.0-33.9, adult; Z71.3 Dietary counseling and surveillance | CPT/HCPCS: 96127; 99212 ==

== ENCOUNTER 2025-04-21 10:33 | Outpatient (REF) | payer MEDICARE, SELFPAY ==
--- OUTSIDE RECORDS SUMMARY | 2025-04-21 11:17 | XMS_ITS | Encounter Summary ---
Author Organization [facility] Address [address] [place] [address] Care Team Providers Care Web Programmer Name Role Phone Physician, Pcp Unknown Primary Care Provider María vailable Encounter Details Date Type Department Care Team (Late st Contact Info) Description 11/11/2024 Lab Requisition [facility] - Main Lab [address] [facility] [place] [address] Rigoberto Zurita MD [address] [facility] [address] [place] [id number] Gross hematuria Social History Tobacco Use Types Packs/Day Years Used Date Smoking Tobacco: Never Assessed Comments Unknown Sex and Gender Information Value Date Recorded Sex Assigned at Not on file Legal Sex Female 11:22 AM EST Gender Identity Not on file Sexual Orientation Not on file documented as of this encounter Plan of Treatment Not on file documented as of this encounter Procedures Procedure Name Priority Date/Time Associated Diagnosis Comments AP OUTSIDE CONSULT Routine 11/05/2024 12 :00 AM EST Gross hematuria documented in this encounter Results * Anatomic pathology outside consult (11/05/2024 12:00 AM EST) Final Diagnosis A. Urine, Voided, ([id number]): -ATYPICAL UROTHELIAL CELLS. Results of UroVysion fluorescence in situ hybridization (FISH) testing: CEP3: Normal CEP7: Normal CEP17: Normal LSI 9p21: Normal Interpretation: Normal profile Controls stained appropriately. Note: The results are intended as a screening device and should be interpreted in association with other clinical and pathological findings. 11/11/2024 5:21 PM EST [facility] Clinical Information Gross hematuria R31.0 Urine Cytology/FISH (now) 11/11/2024 5:21 PM EST [facility] Gross Description A. Urine, Voided, ([id number]): Received one ThinPrep slide for cytology and one ThinPrep slide for UroVysion FISH 11/11/2024 5:21 PM [facility] Disclaimer Unless otherwise specified, all tissue is 10% NB formalin fixed and paraffin embedded. Technical pathology services provided by [facility] at [address], [place] [address] (CLIA #[id number]/Tequila Fox MD, Real Estate Services Coordinator) 11/11/2024 5:21 PM [facility] Tissue Urine specimen from urethra / Unknown 11/05/2024 11/11/2024 11:40 AM EST us Rigoberto Zurita MD LAB PATHOLOGY ORDERABLES Final Result [facility] [address] [place] [address], documented in this encounter Visit Diagnoses Diagnosis Gross hematuria documented in this encounter Care Teams Web Programmer Relationship Specialty Start Date End Date Physician, Pcp Unknown PCP - General 11/11/24 documented as of this encounter
--- OUTSIDE RECORDS SUMMARY | 2025-04-21 11:17 | XMS_ITS | Clinical Summary ---
Author Organization [facility] Address [address] [place] [address] Phone Care Team Providers Care Risk Management Manager Name Role Phone Octaviano Scott MD Unavailable [phone] Octaviano Scott MD Primary Care Provider [phone] Allergies No known active allergies Medications valsartan (DIOVAN) 320 MG tablet Take 320 mg by mouth daily. Active atorvastatin (LIPITOR) 10 MG tablet Take 10 mg by mouth daily. Active fenofibrate (LOFIBRA) 160 MG tablet Take 160 mg by mouth daily. Active amLODIPine (NORVASC) 2.5 MG tablet Take 2.5 mg by mouth daily. Active mupirocin (BACTROBAN) 2 % ointment Apply topically 3 (three) times a day. 22 g 0 Active Additional Information Patient not taking.Reported on 12/27/2024 metformin HCl (METFORMIN ORAL) Take 500 mg by mouth 2 (two) times a day. 4 Active omeprazole (PRILOSEC) 20 MG tablet Take 20 mg by mouth daily. Active Active Problems No known active problems Social History Tobacco Use Types Packs/Day Years Used Date Smoking Tobacco: Former Smokeless Tobacco: Never Tobacco Cessation:Counseling Given: Not Answered Alcohol Use Standard Drinks/Week Comments Yes 0 (1 standard drink = 0.6 oz pur e alcohol) Education Answer Date Recorded Are you interested in more education? Not on matty e 01/17/2023 Are you concerned about learning? Not on file 01/17/2023 No 01/17/2023 No 01/17/2023 Digital Access Answer Date Recorded No 02/15/2023 No 02/15/2023 Reliable internet access at home? Not on file 02/15/2023 Device with a working camera? Not on file Comments Unknown Sex and Gender Information Value Date Recorded Sex Assigned at Not on file Legal Sex Female 9:14 AM EDT Gender Identity Not on file Sexual Orientation Not on file Last Filed Vital Signs Vital Sign Reading Time Taken Comments Blood Pressure 194/73 12/27/2024 2:23 PM EDT Pulse 74 12/27/2024 2:23 PM EDT Temperature 36.9 C (98.5 F) 12/27/2024 2:23 PM EDT Respiratory Rate 20 12/27/2024 2:23 PM EDT Oxygen Saturation 97% 12/27/2024 2:23 PM EDT Inhaled Oxygen Concentration - - Weight 93 kg (205 lb) 12/27/2024 2:23 PM EDT Height 167.6 cm (5' 6 ) 12/27/2024 2:23 PM EDT Body Mass Index 33.09 12/27/2024 2:23 PM EDT Plan of Treatment Health Maintenance Due Date Last Done Comments Adult Td,Tdap Booster 1948 CREATININE LEVEL 1950 LIPID PANEL 1948 POTASSIUM LEVEL 1948 DEPRESSION SCREENING 1960 SMOKING Hx and SMOKELESS TOBACCO SCREENING 01/12/1961 HEPATITIS C SCREENING 01/12/1966 PNEUMOCOCCAL VACCINES (50+ years) (1 of 1 - PCV) 01/12/1998 ZOSTER VACCINES (1 of 2) 01/12/1998 OSTEOPOROSIS SCREENING INITI AL (ONE-TIME) 01/12/2013 RSV VACCINE (1 - 1-dose 75+ series) 01/12/2023 COVID-19 VACCINE (3 - 2023-2 5 season) 2024 11/23/2020, 11/03/2020 HEPATITIS A VACCINES Aged Out No long er eligible based on patient's age to complete this topic HIB VACCINES Aged Out No longer eligi ble based on patient's age to complete this topic MENINGOCOCCAL VACCINES (ACWY) Aged Out No longer eligible based on patient's age to complete this topic MENINGOCOCCAL VACCINES (B) Aged Out N o longer eligible based on patient's age to complete this topic Medical Devices Not on file Insurance MEDICARE PART A & B [employer] MED[employer] SUPPLEMENT MEDICARE PART A & B [employer] MED[employer] SUPPLEMENT MEDICARE PART A & B [employer] MED[employer] SUPPLEMENT MEDICARE PART A & B [employer] MED[employer] SUPPLEMENT MEDICARE PART A & B [facility] MEDEX SUPPLEMENT MEDICARE PART A & B [employer] MEDEX SUPPLEMENT MEDICARE PART A & B [employer] MEDEX SUPPLEMENT MEDICARE PART A & B Attributor [employer] MEDEX SUPPLEMENT [employer] Address: [place] [address] MEDICARE PART A & B Attributor [employer] SUPPLEMENT Care Teams Risk Management Manager Relationship Specialty Start Date End Date Octaviano Scott MD [address] [place] [address] [place] [address] PCP - Internal Medicine Internal Medicine 04/15/20 Octaviano Scott MD [address] [place] [address] [place] [address] PCP - General Internal Medicine 04/15/20 Additional Source Comments The information contained in this document represents components of the legal health record. It is not the complete legal health record.[facility]
[2025-04-21 12:31] LABS: Vitamin B12 440 pg/mL (200-900)
== END 2025-04-21 10:34 | disposition home or self-care (01) ==
LOC: HO.LAB 10:33
PROVIDERS: PCP Internal Medicine; Visit Provider Psychiatry & Neurology Neurology
DX: Z01.84 Encounter for antibody response examination (principal); G62.9 Polyneuropathy, unspecified
CPT/HCPCS: 36415; 82607; 82784; 86334

== ENCOUNTER 2025-04-27 11:01 | Outpatient (AMB) | payer MEDICARE, SELFPAY ==
--- NOTE | 2025-04-27 11:26 | MHC.OFFVIS ---
Intake Visit Reasons: 6 months PN Allergies No Known Allergies Allergy (Verified 02/21/25 00:54) HPI Comments Details: 75 yo RH woman with chronic tension type headaches and gait disorder with sensory probably diabetic neuropathy?(With obesity, type II DM, bladder cancer in 2011 treated with surgery and bladder injection treatment, HTN, and recent extensive cardiac workup that was triggered by a finding on a scan but the workup was negative, was here for difficulty walking. She c/o of a pressure type feeling in the back of head and neck, more so on left side, making her unsteady. She denied any previous h/o headaches). She has stopped taking sertraline. Pain was mostly on the left side of neck sometime radiating to the head and shoulder. [facility] Medical History (Updated 04/27/25 @ 11:37 by Nguyễn Holman MD) Peripheral neuropathy Gait abnormality Tension type headache Obesity (BMI 30-39.9) Mixed hyperlipidemia Essential hypertension Hx of sigmoidoscopy Bladder cancer Diabetes mellitus Surgical History History of esophagogastroduodenoscopy (EGD) Hx of cystoscopy History of total abdominal hysterectomy History of bladder surgery H/O rectal polypectomy History of cholecystectomy Family History Father Hodgkin disease Mother Medical history unknown Social History Housing: House Are you a primary reservoir caretaker to a significant other at home: No Do you presently have visiting nurse or other home services: No Alcohol intake: current Alcohol intake frequency: holidays/special occasions only Patient Tobacco Use Status: Never used Tobacco Tobacco use type: Cigarette e-Cigarette/Vaping Use: Never Used Second Hand Smoke Exposure: No service: No Current occupational status: retired Current occupational exposures/hazards: No Cognitive needs: No Hearing needs: No Vision needs: Yes (Glasses) Review of Systems Const Details: Constitutional:?No fever, chills, fatigue, weight loss, or night sweats. HEENT:?No headache, vision changes, hearing loss, nasal congestion, sore throat. Neurological:?No dizziness, syncope, seizures, numbness, tingling, weakness, tremors, memory loss. Psychiatric:?No anxiety, depression, mood swings, sleep disturbance, or hallucinations. Endocrine:?No heat/cold intolerance, polydipsia, polyuria, or hair/skin changes. Hematologic/Lymphatic:?No easy bruising, bleeding, or lymphadenopathy. Integumentary (Skin):?No rash, lesions, itching, or color changes. ? Physical Exam Neuro Other: Mental Status: Alert and oriented to person, place, and time. Normal attention. Normal spontaneous speech, fluency, and comprehension. No obvious issues with mood and memory. Affect is appropriate. Cranial Nerves: CN II: Visual acevedo full to confrontation, visual acuity intact. CN III, IV, : Pupils equal, round, reactive to light and accommodation. Extraocular movements are normal. CN V: Facial sensation is normal. CN VII: Facial movements symmetrical. CN VIII: Hearing intact to bedside conversation is normal. CN IX, X: Palate elevates symmetrically. CN XI: Shoulder shrug and head turn symmetrical. CN XII: Tongue midline without atrophy or fasciculations. Extrapyramidal: Full facial expressions and blinking. No rigidity. Movements are appropriate with no tremor or abnormality. Speech: Normal; no dysarthria or tremor. Assessment & Plan Assessment & Plan (1) Peripheral neuropathy: Comment: EMG/NCS at off in Sep 2024: Sensory neuropathy Code(s): G62.9 - Polyneuropathy, unspecified Category: Medical Qualifiers: Peripheral neuropathy type: polyneuropathy, unspecified Qualified Code(s): G62.9 - Polyneuropathy, unspecified (2) Cervical spondyloarthritis: Code(s): M47.812 - Spondylosis without myelopathy or radiculopathy, cervical region Category: Medical Qualifiers: Spinal osteoarthritis complication: without myelopathy or radiculopathy Qualified Code(s): M47.812 - Spondylosis without myelopathy or radiculopathy, cervical region Plan Impression: a: Chronic neck pain, probably spondyloarthritis b: Sensory peripheral neuropathy Rec: a: Xray cervical spine to see if a local cortisone injection might be a choice Orders: Orders XR cervical spine 2V Today M47.812 - Spondylosis without myelopathy or radiculopathy, cervical region Coding Level of Care Code Est Pt Level 4 (98085) Diagnoses Peripheral polyneuropathy G62.9 Peripheral neuropathy type: polyneuropathy, unspecified Spondylosis of cervical region without myelopathy or radiculopathy M47.812 Spinal osteoarthritis complication: without myelopathy or radiculopathy
--- OUTSIDE RECORDS SUMMARY | 2025-04-27 11:46 | XMS_ITS | Encounter Summary ---
Author Organization [facility] Address [address] [place] [address] Care Team Providers Care Air Defense Control Officer Name Role Phone Physician, Pcp Unknown Primary Care Provider María vailable Encounter Details Date Type Department Care Team (Late st Contact Info) Description 11/11/2024 Lab Requisition [facility] - Main Lab [address] [facility] [place] [address] Rigoberto Zurita MD [address] [facility] [address] [place] [id number] Gross hematuria Social History Tobacco Use Types [...] AM EST) Final Diagnosis A. Urine, Voided, ([id number]): -ATYPICAL UROTHELIAL CELLS. Results of UroVysion fluorescence in situ hybridization (FISH) testing: CEP3: Normal CEP7: Normal CEP17: Normal LSI 9p21: Normal Interpretation: Normal profile Controls stained appropriately. Note: The results are intended as a screening device and should be interpreted in association with other clinical and pathological findings. 11/11/2024 5:21 PM EST [facility] Clinical Information Gross hematuria R31.0 Urine Cytology/FISH (now) 11/11/2024 5:21 PM EST [facility] Gross Description A. Urine, Voided, ([id number]): Received one ThinPrep slide for cytology and one ThinPrep slide for UroVysion FISH 11/11/2024 5:21 PM [facility] Disclaimer Unless otherwise specified, all tissue is 10% NB formalin fixed and paraffin embedded. Technical pathology services provided by [facility]rology at [address], [place] [address] (CLIA #[id number]/Tequila Fox MD, Machining Supervisor) 11/11/2024 5:21 PM [facility] Tissue Urine specimen from urethra / Unknown 11/05/2024 11/11/2024 11:40 AM EST us Rigoberto Zurita MD LAB PATHOLOGY ORDERABLES Final Result [facility] [address] [place] [address], documented in this encounter Visit Diagnoses Diagnosis Gross hematuria documented in this encounter Care Teams Air Defense Control Officer Relationship Specialty Start Date End Date Physician, Pcp Unknown PCP - General 11/11/24 documented as of this encounter
--- OUTSIDE RECORDS SUMMARY | 2025-04-27 11:46 | XMS_ITS | Clinical Summary ---
Author Organization [facility] Address [address] [place] [address] Phone Care Team Providers Care Boilermaker Industrial Boilers Name Role Phone Octaviano Scott MD Unavailable [phone] Octaviano Scott MD Primary Care Provider [phone] Allergies No known active allergies Medications valsartan [...] file Insurance MEDICARE PART A & B [employer] MEDEX SUPPLEMENT MEDICARE PART A & B [employer] MEDEX SUPPLEMENT MEDICARE PART A & B [employer] MEDEX SUPPLEMENT MEDICARE PART A & B [employer] MEDEX SUPPLEMENT MEDICARE PART A & B [facility] MEDEX SUPPLEMENT MEDICARE PART A & B [employer] MEDEX SUPPLEMENT MEDICARE PART A & B [employer] MEDEX SUPPLEMENT MEDICARE PART A & B [employer] MEDEX SUPPLEMENT MEDICARE PART A & B [employer] MEDEX SUPPLEMENT Care Teams Boilermaker Industrial Boilers Relationship Specialty Start Date End Date Octaviano Scott MD [address] [place] [address] [place] [id number] PCP - Internal Medicine Internal Medicine 04/15/20 Octaviano Scott MD [address] [place] [address] [place] [address] PCP - General Internal Medicine 04/15/20 Additional Source Comments The information contained in this document represents components of the legal health record. It is not the complete legal health record.[facility]
== END 2025-04-27 11:41 | disposition home or self-care (01) ==
LOC: HO.HSM 11:02
PROVIDERS: PCP Internal Medicine; Referring Provider Internal Medicine; Visit Provider Psychiatry & Neurology Neurology
DX: G62.9 Polyneuropathy, unspecified (principal); M47.812 Spondylosis without myelopathy or radiculopathy, cervical region
CPT/HCPCS: 99214

== ENCOUNTER 2025-04-27 11:01 | Outpatient (REF) | payer MEDICARE, SELFPAY ==
--- NOTE | ~2025-04-27 | XR_ITS ---
CLINICAL HISTORY: M47.812 - Spondylosis without myelopathy or radiculopathy, cervical region 5 views cervical spine Comparison: None provided Findings: Normal alignment. No acute fractures or dislocation. Multilevel disc space narrowing and endplate osteophyte formation, as well as facet hypertrophy. No prevertebral soft tissue swelling. IMPRESSION: No acute findings. This document has been electronically signed by: Eileen Mann MD on 04/27/2025 15:45:32
== END 2025-04-27 11:02 | disposition home or self-care (01) ==
LOC: HO.XRAY 11:01
PROVIDERS: PCP Internal Medicine; Referring Provider Internal Medicine; Visit Provider Psychiatry & Neurology Neurology
DX: M47.812 Spondylosis without myelopathy or radiculopathy, cervical region (principal); E11.42 Type 2 diabetes mellitus with diabetic polyneuropathy; G44.229 Chronic tension-type headache, not intractable
CPT/HCPCS: 72050; 99212

== ENCOUNTER → 2025-04-27 12:06 | Outpatient (BNV) | payer MEDICARE, SELFPAY | PROVIDERS: PCP Internal Medicine; Referring Provider Internal Medicine; Visit Provider Radiology Diagnostic Radiology | DX: M47.812 Spondylosis without myelopathy or radiculopathy, cervical region (principal) | CPT/HCPCS: 72050 ==

== ENCOUNTER 2025-06-20 09:25 | Outpatient (REF) | payer MEDICARE, SELFPAY ==
[2025-06-20 09:40] LABS: MANUAL DIFF FLAG NO
--- OUTSIDE RECORDS SUMMARY | 2025-06-20 10:11 | XMS_ITS | Clinical Summary ---
Author Organization [facility] Address [address] [place] [address] Phone Care Team Providers Care Carrot Grader Inspector Name Role Phone Octaviano Scott MD Unavailable [phone] Octaviano Scott MD Primary Care Provider [phone] Allergies No known active allergies Medications valsartan [...] VACCINES (1 of 2) 01/12/1998 OSTEOPOROSIS SCREENING INITIAL (ONE-TIME) 01/12/2013 RSV VACCINE (1 - 1-dose 75+ series) 01/12/2023 INFLUENZA VACCINE (#1) 2025 , 07/05/2023, 07/15/2022, Additional history exists COVID-19 VACCINE (3 - 2024- season) 2025 11/23/2020, 11/03/2020 HEPATITIS A VACCINES Aged Out [...] file Insurance MEDICARE PART A & B [employer] SUPPLEMENT MEDICARE PART A & B [employer] MEDEX SUPPLEMENT MEDICARE PART A & B Member Subscriber Plan / Payer (Ef fective 2015-Present) Name:Mercedes Benitez Member ID:[id number] Relation to Subscriber:Self Name:Mercedes Benitez Subscriber ID:[id number] Payer ID:[id number] Group ID:Not on file Type:Medicare Address: [employer] [facility] [address] [facility] MEDEX SUPPLEMENT MEDICARE PART A & B [employer] MEDEX SUPPLEMENT MEDICARE PART A & B [employer] MEDEX SUPPLEMENT MEDICARE PART A & B [employer] CROSS MEDEX SUPPLEMENT MEDICARE PART A & B [employer] MEDEX SUPPLEMENT MEDICARE PART A & B [employer] MEDEX SUPPLEMENT MEDICARE PART A & B [employer] MEDEX SUPPLEMENT Care Teams Carrot Grader Inspector Relationship Specialty Start Date End Date Octaviano Scott MD [address] [place] [address] [place] [id number] PCP - Internal Medicine Internal Medicine 04/15/20 Octaviano Scott MD [address] [place] [address] [place] [address] PCP - General Internal Medicine 04/15/20 Additional Source Comments The information contained in this document represents components of the legal health record. It is not the complete legal health record.[facility]
--- OUTSIDE RECORDS SUMMARY | 2025-06-20 10:11 | XMS_ITS | Clinical Summary ---
Author Organization [address] [facility] Address [address] [place] [address] Phone Care Team Providers Care Brooch Maker Novelty Name Role Phone Physician, Pcp Unknown Primary Care Provider María vailable Social History Tobacco Use Types Packs/Day Years Used Date Smoking Tobacco: Never Assessed Comments Unknown Sex and Gender Information Value Date Recorded Sex Assigned at Not on file Legal Sex Female 11:22 AM EST Gender Identity Not on file Sexual Orientation Not on file Plan of Treatment Health Maintenance Due Date Last Done Comments DTaP,Tdap,and Td Vaccines (1 - Tdap) 01/12/1967 Pneumococcal Vaccine: 50+ Ye ars (1 of 1 - PCV) 01/12/1998 Zoster Vaccines (1 of 2) 01/12/1998 RSV Immunization Adult Patie nts (1 - 1-dose 75+ series) 01/12/2023 Depression Screening 09/22/2024 Falls Risk Assessment 11/11/2024 Hepatitis C Screening 11/11/2024 Medicare Annual Wellness Visit 11/11/2024 Osteoporosis Screening (Bone Density Screening) 11/11/2024 Social Influencers of Health Screening 11/11/2024 COVID-19 Vaccine ( - 2023-2 5 season) 2025 Influenza Vaccine (#1) 2025 HIB Vaccines Aged Out No longer eligi ble based on patient's age to complete this topic HPV Vaccines Aged Out No longer eligi ble based on patient's age to complete this topic Hepatitis A Vaccines Aged Out No long er eligible based on patient's age to complete this topic Hepatitis B Vaccines Aged Out No long er eligible based on patient's age to complete this topic IPV Vaccines Aged Out No longer eligi ble based on patient's age to complete this topic MMR Vaccines Aged Out No longer eligi ble based on patient's age to complete this topic Meningococcal ACWY Vaccine Aged Out N o longer eligible based on patient's age to complete this topic Meningococcal B Vaccine Aged Out No l onger eligible based on patient's age to complete this topic RSV Immunization Patients Un jan 20 months Aged Out No longer eligible b ased on patient's age to complete this topic Varicella Vaccines Aged Out No longer eligible based on patient's age to complete this topic Insurance MEDICARE [employer] Care Teams Brooch Maker Novelty Relationship Specialty Start Date End Date Physician, Pcp Unknown PCP - General 11/11/24
--- OUTSIDE RECORDS SUMMARY | 2025-06-20 10:11 | XMS_ITS | Encounter Summary ---
Author Organization [facility] Address [address] [place] [address] Care Team Providers Care Manager Billing Name Role Phone Physician, Pcp Unknown Primary Care Provider María vailable Encounter Details Date Type Department Care Team (Late st Contact Info) Description 11/11/2024 Lab Requisition [facility] - Main Lab [address] [facility] [place] [address] Rigoberto Zurita MD [address] [facility] [address] [place] [phone] Gross hematuria Social History Tobacco Use Types [...] AM EST) Final Diagnosis A. Urine, Voided, ([id number]): -ATYPICAL UROTHELIAL CELLS. Results of UroVysion fluorescence in situ hybridization (FISH) testing: CEP3: Normal CEP7: Normal CEP17: Normal LSI 9p21: Normal Interpretation: Normal profile Controls stained appropriately. Note: The results are intended as a screening device and should be interpreted in association with other clinical and pathological findings. 11/11/2024 5:21 PM EST [facility] Clinical Information Gross hematuria R31.0 Urine Cytology/FISH (now) 11/11/2024 5:21 PM EST [facility] Gross Description A. Urine, Voided, ([id number]): Received one ThinPrep slide for cytology and one ThinPrep slide for UroVysion FISH 11/11/2024 5:21 PM [facility] Disclaimer Unless otherwise specified, all tissue is 10% NB formalin fixed and paraffin embedded. Technical pathology services provided by [facility]rology at [address], [place] [address] (CLIA #[id number]/Tequila Fox MD, Asphalt Worker) 11/11/2024 5:21 PM [facility] Tissue Urine specimen from urethra / Unknown 11/05/2024 11/11/2024 11:40 AM EST us Rigoberto Zurita MD LAB PATHOLOGY ORDERABLES Final Result [facility] [address] [place] [address], documented in this encounter Visit Diagnoses Diagnosis Gross hematuria documented in this encounter Care Teams Manager Billing Relationship Specialty Start Date End Date Physician, Pcp Unknown PCP - General 11/11/24 documented as of this encounter
[2025-06-20 10:34] LABS: Hematocrit 40.7 % (37.0-47.0); Hemoglobin 13.9 g/dl (12.0-16.0); Imm Gran Abs Auto 0.01 X10*3/uL (0.00-0.03); Imm Gran Pct Auto 0.2 % (0.0-0.4); Lymphocytes Absolute Auto 1.2 X10*3/uL (1.2-4.9); Mean Corpuscular HGB Conc 34.2 g/dl (31.0-35.0); Mean Corpuscular Hemoglobin 30.3 pg (27.0-33.0); Mean Corpuscular Volume 88.9 fL (80.0-98.0); NRBC Abs Auto 0.000 X10*3/uL (0.0-0.012); NRBC Pct Auto 0.0 /100WBC (0.0-0.2); Platelet Count 191 X10*3/uL (160-400); Red Blood Count 4.58 X10*6/uL (4.20-5.50); White Blood Count 4.1 X10*3/uL (4.8-10.8)
[2025-06-20 10:43] LABS: Total Hemoglobin (HGBA1C) 3592.9745 umol/L
[2025-06-20 11:11] LABS: Appearance Urine Clear; Glucose Urine UA 100 mg/dL (Negative); PH 6.0 (5.0-9.0); Specific Gravity - Urine 1.015 (1.005-1.025); UMIC TRIGGER UACC YES
[2025-06-20 11:17] LABS: Alanine Aminotransferase 25 U/L (0-31); Albumin Level 4.3 g/dL (3.5-5.0); Alkaline Phosphatase 37 U/L (39-117); Anion Gap 10 (12-20); Aspartate Amino Transferase 28 U/L (5-31); Blood Urea Nitrogen 14 mg/dL (9-16); Calcium 9.8 mg/dL (8.4-10.2); Carbon Dioxide 28 mmol/L (22-29); Chloride 108 mmol/L (96-108); Cholesterol 131 mg/dL (<200); Estimated Glomerular Filt Rate > 60; HDL Cholesterol 32 mg/dL (>40); Potassium 4.1 mmol/L (3.3-5.1); Sodium 142 mmol/L (135-145); Total Protein 6.9 g/dL (6.5-8.0); Triglycerides 117 mg/dL (<150)
[2025-06-20 11:18] LABS: UACC Culture Trigger YES
[2025-06-20 11:44] LABS: Folate 6.1 ng/mL (> or = 4.0); Vitamin B12 340 pg/mL (200-900)
[2025-06-20 12:27] LABS: Microalbum/Creatinine Ratio Ur 50.2 ug/mg cr (<30)
== END 2025-06-20 09:26 | disposition home or self-care (01) ==
LOC: HO.LAB 09:25
PROVIDERS: PCP Internal Medicine; Visit Provider Internal Medicine
DX: E11.9 Type 2 diabetes mellitus without complications (principal); E53.8 Deficiency of other specified B group vitamins; D64.9 Anemia, unspecified; E78.00 Pure hypercholesterolemia, unspecified; E55.9 Vitamin D deficiency, unspecified; R30.0 Dysuria
CPT/HCPCS: 36415; 80053; 80061; 81001; 81003; 82043; 82306; 82570; 82607; 82746; 83036; 84443; 85025; 87086

== ENCOUNTER 2025-06-23 11:42 | Outpatient (AMB) | payer MEDICARE, SELFPAY ==
[2025-06-23 11:45] VITALS: BP 126/80; PULSE 68; O2SAT 97; BMI 33.9
--- NOTE | 2025-06-23 11:45 | MHC.PC.OV ---
Vital Signs 06/23/25 11:45 Height 5 ft 6 in Weight 210 lb BMI 33.9 BP 126/80 Blood Pressure Location Lt brachial Position Sitting Pulse 68 Pulse Source Pulse Oximeter Pulse Oximetry (%) 97 Oxygen Delivery Method Room Air Intake Visit Reasons: [facility] f/u Welcome Wagon Host/Hostess Required: No Accompanied by: Self / Same As Patient Allergies No Known Allergies Allergy (Verified 06/23/25 12:07) Medication List - Last Reconciled 06/23/25 by Tunde Lassiter MD atorvastatin 10 mg PO DAILY blood sugar diagnostic to check blood sugars twice a day blood-glucose meter (Giritech Ultra2 Meter) Use to check blood sugars twice a day fenofibrate 160 mg PO DAILY lancets (Taumatropo Animationuch Delica Lancets) to use twice a day metformin 500 mg PO BID omeprazole 20 mg PO DAILY sertraline 25 mg PO DAILY valsartan 320 mg PO DAILY Tobacco use date assessed: 06/23/25 Fall risk assessment: No Falls in past year Last assessed Fall Risk: 06/23/25 Dental Screening Dental Screen Date: 06/23/25 Did you have a dental visit in the last 12 months?: Yes Did you have a dental problem in the last 6 months where you did not have access to dental care?: No Was dental information given to patient?: Patient has dentist HPI [facility] f/u HPI Details Patient comes in today for her follow up visit States that she feels okay She denies any headaches or dizziness Denies any chest pains, no SOB No nausea/vomiting, no abdominal pain No change in bowel habits noted She had her follow up labs done a few days ago - to discuss her results [facility] Medical History (Updated 06/23/25 @ 13:58 by Tunde Lassiter MD) Vitamin D deficiency Peripheral neuropathy Gait abnormality Tension type headache Obesity (BMI 30-39.9) Mixed hyperlipidemia Essential hypertension Hx of sigmoidoscopy Bladder cancer Diabetes mellitus Surgical History History of esophagogastroduodenoscopy (EGD) Hx of cystoscopy History of total abdominal hysterectomy History of bladder surgery H/O rectal polypectomy History of cholecystectomy Family History Father Hodgkin disease Mother Medical history unknown Social History Housing: House Are you a primary manager respiratory care to a significant other at home: No Do you presently have visiting nurse or other home services: No Alcohol intake: current Alcohol intake frequency: holidays/special occasions only Patient Tobacco Use Status: Never used Tobacco Tobacco use type: Cigarette e-Cigarette/Vaping Use: Never Used Second Hand Smoke Exposure: No service: No Current occupational status: retired Current occupational exposures/hazards: No Cognitive needs: No Hearing needs: No Vision needs: Yes (Glasses) Questionnaire PHQ-9 Over the last 2 weeks, how often have you been bothered by any of the following problems? Depression Screening Interpretation: Negative Depression Screening Done: Yes Source: Developed by Drs. Kaden Perea, Charlee Cerrato, Rylan Richter and colleagues, with an educational roxanne from [employer]. Thrive Questionnaire Date Thrive assessed: 02/16/25 I am a: Patient What is your living situation today?: I have a steady place to live Within the past 12 months, did the food you bought not last and you didn't have the money to get more?: Never true Within the past 12 months, did you worry whether your food would run out before you got money to buy more?: Never true Do you have trouble paying for medicines?: No Do you have trouble getting transportation to medical appointments?: No Do you have trouble paying your heating and electricity bill?: No Do you have trouble taking care of your child, family member or friend?: No Do you have trouble with day-to-day activities such as bathing, preparing meals, shopping, managing finances, etc.?: No Are you currently unemployed and looking for a job?: No Are you interested in more education?: No Please select the resources that you would like help with: None Currently or been in a relationship where the following occur: No concerns reported THRIVE Score: 0 AUDIT C Alcohol Use Questionnaire (AUDIT-C) 1. How often do you have a drink containing alcohol?: Monthly or less 2. How many drinks containing alcohol do you have on a typical day when you are drinking?: 1 or 2 3. How often do you have six or more drinks on one occasion?: Never Total Score: 1 Score Reviewed/Action Taken: Yes DALILA-7 AMB Questionnaire DALILA-7 Date DALILA - 7 assessed: 02/16/25 Source: Developed by Drs. Kaden Perea, Charlee Cerrato, Rylan Richter and colleagues, with an educational roxanne from [employer]. Review of Systems Const Denies chills, Denies fatigue, Denies fever(s) and Denies headache(s) ENT Denies dysphagia, Denies dizziness, Denies otalgia, Denies headache(s), Denies neck pain, Denies odynophagia and Denies sore throat Card Denies chest pain, Denies rapid heart rate, Denies palpitations and Denies dyspnea Resp Denies chest congestion, Denies cough and Denies dyspnea GI Denies abdominal pain, Denies constipation, Denies dysphagia, Denies heartburn, Denies diarrhea, Denies nausea, Denies odynophagia and Denies vomiting Denies difficulty voiding, Denies nocturia, Denies dysuria and Denies urinary urgency Musc Denies back pain and Denies neck pain Skin/Breast Denies rash Neuro Denies dizziness and Denies headache(s) Endo Denies fatigue and Denies palpitations Physical exam (Primary Care) Vital Signs: Last Vital Signs Pulse 68 06/23/25 11:45 BP 126/80 06/23/25 11:45 Pulse Ox 97 06/23/25 11:45 Oxygen Delivery Method Room Air 06/23/25 11:45 BMI result Body Mass Index 33.9 Tobacco/Smoking Status: Tobacco use Status Tobacco use date assessed 06/23/25 06/23/25 11:47 Patient Tobacco Use Status Never used Tobacco 06/23/25 11:47 Tobacco use type Cigarette 06/23/25 11:47 e-Cigarette/Vaping Use Never Used 06/23/25 11:47 Depression Screening Interpretation: Negative Thrive Assessment: Date of Thrive Assessment Date Thrive assessed 02/16/25 06/23/25 11:47 Currently or been in a relationship where the following occur: No concerns reported Const General: no acute distress and alert HENMT Ears: TM's normal bilaterally and EAC's normal Throat: Yes posterior oropharynx normal and Yes tonsils normal (no TP congestion) Neck Neck: Yes supple and No lymphadenopathy Thyroid: Thyroid normal Resp Auscultation: clear to auscultation bilaterally, no rales and no wheezes Cardio Rate: regular rate Rhythm: regular rhythm Heart sounds: no murmurs GI Palpation (GI): Soft to palpation and nontender Auscultation: normal bowel sounds General: Yes no CVA tenderness Back/Spine/Pelvis Back: no CVA tenderness Thoracic/Lumbar Spine: No lumbar spinal tenderness Skin Rashes: no rashes Extrem General: Yes no clubbing, cyanosis or edema Results Reviewed Results Reviewed: Laboratory Tests 06/20/25 06/20/25 09:31 09:39 WBC 4.1 L Hgb 13.9 Hct 40.7 Plt Count 191 Sodium 142 Potassium 4.1 Creatinine 0.66 Estimated GFR > 60 Fasting Glucose 157 H Hemoglobin A1c % 7.8 H Calcium 9.8 AST 28 ALT 25 Triglycerides 117 Cholesterol 131 LDL Cholesterol, Calc 76 HDL Cholesterol 32 L Vitamin B12 340 25-OH Vitamin D Total 25.0 L TSH 0.84 Ur Specific [place] 1.015 Urine Protein Trace Urine Glucose (UA) 100 H Urine Blood Negative Urine Nitrite Negative Ur Leukocyte Esterase Small (1+) H Microalb/Creat Ratio 50.2 H Coding Level of Care Code Est Pt Level 4 (05398) Diagnoses Type 2 diabetes mellitus without complication, without long-term current use of insulin E11.9 Diabetes mellitus complication status: without complication Diabetes mellitus half-way insulin use: without half-way use Diabetes mellitus type: type 2 Essential hypertension I10 Mixed hyperlipidemia E78.2 Vitamin D deficiency E55.9 Malignant neoplasm of urinary bladder, unspecified site C67.9 Bladder location: unspecified site Obesity (BMI 30-39.9) E66.9 Assessment & Plan Assessment & Plan (1) Diabetes mellitus: Comment: 20 min reviewing chart eval pt and documenting Code(s): E11.9 - Type 2 diabetes mellitus without complications Category: Medical Qualifiers: Diabetes mellitus complication status: without complication Diabetes mellitus half-way insulin use: without parts counterman use Diabetes mellitus type: type 2 Qualified Code(s): E11.9 - Type 2 diabetes mellitus without complications Plan: Patient's HgbA1c was at 7.8% on her labs done a few days ago (HgbA1c was previously at 6.6% back in October 2024) - goal is at least <7.0% Reinforced diabetic diet Continue Metformin 500 mg BID for now - patient admitted to poor compliance with her diet over the summer and will try to get herself back on track with her diet and prefers not to have her medications changed at this time Will recheck patient's FBS and HgbA1c in 4 months for follow up (2) Essential hypertension: Code(s): I10 - Essential (primary) hypertension Category: Medical Plan: Reinforced low sodium diet - goal is systolic BP of at least 130 to 140 mm or less Continue Valsartan 320 mg QD Patient is reminded to have her blood pressure monitored regularly (3) Mixed hyperlipidemia: Code(s): E78.2 - Mixed hyperlipidemia Category: Medical Plan: Results of her labs done a few days ago reviewed and discussed with patient - her cholesterol levels have remained at goal on her recent labs Reinforced low cholesterol diet Continue Atorvastatin 10 mg QD and Fenofibrate 160 mg QD Will recheck her labs and fasting lipids in 4 months for follow up (4) Vitamin D deficiency: Code(s): E55.9 - Vitamin D deficiency, unspecified Category: Medical Plan: Patient is advised that her Vitamin D level was low on her recent labs Have advised her to start taking OTC Vitamin D3 1000 units QD (5) Bladder cancer: Comment: Papillary urothelial, high grade Code(s): C67.9 - Malignant neoplasm of bladder, unspecified Category: Medical Qualifiers: Bladder location: unspecified site Qualified Code(s): C67.9 - Malignant neoplasm of bladder, unspecified Plan: S/P Tx with surgical resection and Mitomycin about 14 years ago (2010) Recent work ups done to further evaluate her hematuria, including cystoscopy, all came back negative for cancer recurrence Follow up with urology as scheduled for continuing surveillance (6) Obesity (BMI 30-39.9): Code(s): E66.9 - Obesity, unspecified Category: Medical Plan: Reinforced diet/exercise as tolerated/lose weight Plan Follow up in 4 months Orders: Orders Microalbumin, Random (w Creat) 4 Months E11.9 - Type 2 diabetes mellitus without complications Complete Blood Count Auto Diff 4 Months D64.9 - Anemia, unspecified TSH reflex Free T4 4 Months E78.00 - Pure hypercholesterolemia, unspecified UA CC w/rflx Micro + Cult 4 Months R30.0 - Dysuria Vitamin D 25-OH Total 4 Months E55.9 - Vitamin D deficiency, unspecified Hemoglobin A1c 4 Months E11.9 - Type 2 diabetes mellitus without complications Lipid Panel 4 Months E78.00 - Pure hypercholesterolemia, unspecified Comprehensive [place]. Panel Fast 4 Months E78.00 - Pure hypercholesterolemia, unspecified Vitamin B12 and Folate 4 Months E53.8 - Deficiency of other specified B group vitamins Medications: New cholecalciferol (vitamin D3) 25 mcg PO DAILY 90 caps 3RF 90 days E55.9 - Vitamin D deficiency, unspecified
--- OUTSIDE RECORDS SUMMARY | 2025-06-23 13:31 | XMS_ITS | Clinical Summary ---
Author Organization [facility] Address [address] [place] [address] Phone Care Team Providers Care Lead Designer Name Role Phone Octaviano Scott MD Unavailable [phone] Octaviano Scott MD Primary Care Provider [phone] Allergies No known active allergies Medications valsartan [...] file Insurance MEDICARE PART A & B [employer] SUPPLEMENT MEDICARE PART A & B [employer] MEDEX SUPPLEMENT MEDICARE PART A & B Member Subscriber Plan / Payer (Ef fective 2015-Present) Name:Mercedes Benitez Member ID:[id number] Relation to Subscriber:Self Name:Mercedes Benitez Subscriber ID:[id number] Payer ID:[id number] Group ID:Not on file Type:Medicare Address: [employer] [facility] [address] [facility] MEDEX SUPPLEMENT MEDICARE PART A & B [employer] MEDEX SUPPLEMENT MEDICARE PART A & B [employer] MEDEX SUPPLEMENT MEDICARE PART A & B [employer] CROSS MEDEX SUPPLEMENT MEDICARE PART A & B [employer] CROSS MEDEX SUPPLEMENT MEDICARE PART A & B [employer] MEDEX SUPPLEMENT MEDICARE PART A & B [employer] MEDEX SUPPLEMENT Care Teams Lead Designer Relationship Specialty Start Date End Date Octaviano Scott MD [address] [place] [address] [place] [address] PCP - Internal Medicine Internal Medicine 04/15/20 Octaviano Scott MD [address] [place] [address] [place] [address] PCP - General Internal Medicine 04/15/20 Additional Source Comments The information contained in this document represents components of the legal health record. It is not the complete legal health record.[facility]
--- OUTSIDE RECORDS SUMMARY | 2025-06-23 13:31 | XMS_ITS | Clinical Summary ---
Author Organization [address] [facility] Address [address] [place] [address] Phone Care Team Providers Care Firmware Software Verification Engineer Name Role Phone Physician, Pcp Unknown Primary [...] age to complete this topic Insurance MEDICARE [facility] Care Teams Firmware Software Verification Engineer Relationship Specialty Start Date End Date Physician, Pcp Unknown PCP - General 11/11/24
--- OUTSIDE RECORDS SUMMARY | 2025-06-23 13:31 | XMS_ITS | Encounter Summary ---
Author Organization [facility] Address [address] [place] [address] Care Team Providers Care Propagator Laborer Name Role Phone Physician, Pcp Unknown Primary Care Provider María vailable Encounter Details Date Type Department Care Team (Late st Contact Info) Description 11/11/2024 Lab Requisition [facility] - Main Lab [address] [facility] [place] [address] Rigoberto Zurita MD [address] [facility] [address] [place] [id number] Gross hematuria Social History Tobacco Use Types [...] AM EST) Final Diagnosis A. Urine, Voided, ([id number]): -ATYPICAL UROTHELIAL CELLS. Results of UroVysion fluorescence in situ hybridization (FISH) testing: CEP3: Normal CEP7: Normal CEP17: Normal LSI 9p21: Normal Interpretation: Normal profile Controls stained appropriately. Note: The results are intended as a screening device and should be interpreted in association with other clinical and pathological findings. 11/11/2024 5:21 PM EST [facility] Clinical Information Gross hematuria R31.0 Urine Cytology/FISH (now) 11/11/2024 5:21 PM EST [facility] Gross Description A. Urine, Voided, ([id number]): Received one ThinPrep slide for cytology and one ThinPrep slide for UroVysion FISH 11/11/2024 5:21 PM [facility] Disclaimer Unless otherwise specified, all tissue is 10% NB formalin fixed and paraffin embedded. Technical pathology services provided by [facility] at [address], [place] [address] (CLIA #[id number]/Tequila Fox MD, Lithographic Photographer) 11/11/2024 5:21 PM [facility] Tissue Urine specimen from urethra / Unknown 11/05/2024 11/11/2024 11:40 AM EST us Rigoberto Zurita MD LAB PATHOLOGY ORDERABLES Final Result [facility] [address] [place] [address], documented in this encounter Visit Diagnoses Diagnosis Gross hematuria documented in this encounter Care Teams Propagator Laborer Relationship Specialty Start Date End Date Physician, Pcp Unknown PCP - General 11/11/24 documented as of this encounter
== END 2025-06-23 12:32 | disposition home or self-care (01) ==
LOC: HO.HMCH 11:43
PROVIDERS: PCP Internal Medicine; Visit Provider Internal Medicine
DX: E11.9 Type 2 diabetes mellitus without complications (principal); C67.9 Malignant neoplasm of bladder, unspecified; E66.9 Obesity, unspecified; Z68.33 Body mass index [BMI] 33.0-33.9, adult; I10 Essential (primary) hypertension; E78.2 Mixed hyperlipidemia; E55.9 Vitamin D deficiency, unspecified

== ENCOUNTER → 2025-06-23 11:42 | Outpatient (BNVA) | payer MEDICARE, SELFPAY | PROVIDERS: PCP Internal Medicine; Visit Provider Internal Medicine | DX: E11.9 Type 2 diabetes mellitus without complications (principal); I10 Essential (primary) hypertension; E78.2 Mixed hyperlipidemia; E55.9 Vitamin D deficiency, unspecified; C67.9 Malignant neoplasm of bladder, unspecified; E66.9 Obesity, unspecified; D64.9 Anemia, unspecified; E78.00 Pure hypercholesterolemia, unspecified; R30.0 Dysuria; E53.8 Deficiency of other specified B group vitamins | CPT/HCPCS: 99212 ==

== ENCOUNTER 2025-07-27 14:17 | Outpatient (AMB) | payer MEDICARE, SELFPAY ==
--- NOTE | 2025-07-27 14:27 | A.OFFPC_ITS ---
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 Required: No Accompanied by: Self / Same As Patient Allergies No Known Allergies Allergy (Verified 07/27/25 15:00) Medication List - Last Reconciled 07/27/25 by SEAN Ortega atorvastatin 10 mg PO DAILY blood sugar diagnostic to check blood sugars twice a day blood-glucose meter ([employer] Ultra2 Meter) Use to check blood sugars twice a day cholecalciferol (vitamin D3) 25 mcg PO DAILY 90 days fenofibrate 160 mg PO DAILY lancets ([employer] Lancets) to use twice a day metformin 500 mg PO BID omeprazole 20 mg PO DAILY sertraline 25 mg PO DAILY valsartan 320 mg PO DAILY Tobacco use date assessed: 07/27/25 Fall risk assessment: No Falls in past year Last assessed Fall Risk: 07/27/25 Dental Screening Dental Screen Date: 07/27/25 Did you have a dental visit in the last 12 months?: Yes Did you have a dental problem in the last 6 months where you did not have access to dental care?: No Was dental information given to patient?: Patient has dentist HPI PREOP HPI Details The patient is a 75-year-old female presenting for preoperative medical clearance for cataract surgery. She has a history of hypertension and presented with acutely elevated blood pressure readings today, with the highest being 188 systolic. She notes that her blood pressure is not usually this high and expresses that getting nervous during measurements makes it higher. Her historical readings have been in the 170s, 160s, and more recently stabilized in the 140s and 130s. 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 The patient reports adherence to her medication regimen and has never missed a dose. She admits to using salt on her food after it is cooked and drinks Diet Coke daily, both of which contain sodium. The patient's past medical history is significant for bladder cancer 14 years ago, which was treated with three separate procedures under anesthesia. Her surgical history also includes a cholecystectomy and a complete hysterectomy in 2019. She has had an endoscopy and a cardiac catheterization within the last year, both with normal results, and she reports no allergies to anesthesia. An evaluation for atrial fibrillation was negative. Her hemoglobin A1c has been trending upward, with a recent value of 7.8, which she attributes to being bad over the summer with her diet. She is scheduled for cataract surgery on her right eye on the and her left eye on September 05. Surgeon/location: Dr. Sherman at [facility]. The patient reports that she will be having a procedure done in [place]. Anesthesia: Mac. The patient had multiple surgeries and is a custom to anesthesia. Date: Right eye August 08 and left eye September 05 2025. Patient denies any postoperative hypothermia or any clotting disorders in the patient is not on any blood thinners. Past medical history significant for chronic tension headaches, HTN, HLD, OSTEOPOROSIS,, atrial arrhythmia, DM, and bladder cancer. The patient denies chest pain, shortness of breath, heart palpitation and dizziness She denies abdominal pain or change in bowel habits [facility] Medical History Vitamin D deficiency Peripheral neuropathy Gait abnormality Tension type headache Obesity (BMI 30-39.9) Mixed hyperlipidemia Essential hypertension Hx of sigmoidoscopy Bladder cancer Diabetes mellitus Surgical History History of esophagogastroduodenoscopy (EGD) Hx of cystoscopy History of total abdominal hysterectomy History of bladder surgery H/O rectal polypectomy History of cholecystectomy Family History Father Hodgkin disease Mother Medical history unknown Social History Housing: House Are you a primary foster care therapist to a significant other at home: No Do you presently have visiting nurse or other home services: No Alcohol intake: current Alcohol intake frequency: holidays/special occasions only Patient Tobacco Use Status: Never used Tobacco Tobacco use type: Cigarette e-Cigarette/Vaping Use: Never Used Second Hand Smoke Exposure: No service: No Current occupational status: retired Current occupational exposures/hazards: No Cognitive needs: No Hearing needs: No Vision needs: Yes (Glasses) Questionnaire PHQ-9 Over the last 2 weeks, how often have you been bothered by any of the following problems? Depression Screening Interpretation: Negative Depression Screening Done: Yes Source: Developed by Drs. Kaden Perea, Charlee Cerrato, Rylan Richter and colleagues, with an educational roxanne from [employer]. Thrive Questionnaire Date Thrive assessed: 02/16/25 I am a: Patient What is your living situation today?: I have a steady place to live Within the past 12 months, did the food you bought not last and you didn't have the money to get more?: Never true Within the past 12 months, did you worry whether your food would run out before you got money to buy more?: Never true Do you have trouble paying for medicines?: No Do you have trouble getting transportation to medical appointments?: No Do you have trouble paying your heating and electricity bill?: No Do you have trouble taking care of your child, family member or friend?: No Do you have trouble with day-to-day activities such as bathing, preparing meals, shopping, managing finances, etc.?: No Are you currently unemployed and looking for a job?: No Are you interested in more education?: No Please select the resources that you would like help with: None Currently or been in a relationship where the following occur: No concerns reported THRIVE Score: 0 DALILA-7 AMB Questionnaire DALILA-7 Date DALILA - 7 assessed: 02/16/25 Source: Developed by Drs. Kaden Perea, Charlee Cerrato, Rylan Richter and colleagues, with an educational roxanne from [employer]. Review of Systems Const Denies chills, Denies fatigue, Denies fever(s) and Denies headache(s) ENT Denies dysphagia, Denies dizziness, Denies otalgia, Denies headache(s), Denies neck pain, Denies odynophagia and Denies sore throat Card Denies chest pain, Denies rapid heart rate, Denies palpitations and Denies dyspnea Resp Denies chest congestion, Denies cough and Denies dyspnea GI Denies abdominal pain, Denies constipation, Denies dysphagia, Denies heartburn, Denies diarrhea, Denies nausea, Denies odynophagia and Denies vomiting Denies difficulty voiding, Denies nocturia, Denies dysuria and Denies urinary urgency Musc Denies back pain and Denies neck pain Skin/Breast Denies rash Neuro Reports Abnormal speech present, Denies dizziness and Denies headache(s) Endo Denies fatigue and Denies palpitations Physical exam (Primary Care) Vital Signs: Last Vital Signs Temp 97.3 F 07/27/25 14:28 Pulse 69 07/27/25 14:28 Resp 18 07/27/25 14:28 BP 172/68 H 07/27/25 14:28 Pulse Ox 97 07/27/25 14:28 Oxygen Delivery Method Room Air 07/27/25 14:28 BMI result Body Mass Index 34.0 Tobacco/Smoking Status: Tobacco use Status Tobacco use date assessed 07/27/25 07/27/25 14:39 Patient Tobacco Use Status Never used Tobacco 07/27/25 14:39 Tobacco use type Cigarette 07/27/25 14:39 e-Cigarette/Vaping Use Never Used 07/27/25 14:39 Depression Screening Interpretation: Negative Thrive Assessment: Date of Thrive Assessment Date Thrive assessed 02/16/25 07/27/25 14:39 Currently or been in a relationship where the following occur: No concerns reported Const General: no acute distress and alert Orientation/consciousness: oriented to person, oriented to place, oriented to time and patient oriented x3 HENMT Ears: TM's normal bilaterally and EAC's normal Throat: Yes posterior oropharynx normal and Yes tonsils normal (no TP congestion) Neck Neck: Yes supple and No lymphadenopathy Thyroid: Thyroid normal Resp Auscultation: clear to auscultation bilaterally, no rales and no wheezes Cardio Rate: regular rate Rhythm: regular rhythm Heart sounds: no murmurs GI Palpation (GI): Soft to palpation and nontender Auscultation: normal bowel sounds General: Yes no CVA tenderness Back/Spine/Pelvis Back: no CVA tenderness Thoracic/Lumbar Spine: No lumbar spinal tenderness Skin Rashes: no rashes Neuro General: oriented to person, oriented to place, oriented to time, patient oriented x3, gait normal and no focal motor deficits Cranial nerves: Yes Bilaterally intact EOM present and Yes Nystagmus not present Speech: Abnormal speech present Gait exam (Neuro): Normal gait present Motor exam (neuro): 01/24 motor strength present throughout Extrem General: Yes no clubbing, cyanosis or edema Psych Appearance: grossly normal Results Reviewed Results Reviewed: Laboratory Tests 06/20/25 06/20/25 09:31 09:39 WBC 4.1 L RBC 4.58 Hgb 13.9 Hct 40.7 MCV 88.9 MCH 30.3 MCHC 34.2 RDW 13.0 Plt Count 191 MPV 10.9 Sodium 142 Potassium 4.1 Chloride 108 Carbon Dioxide 28 Anion Gap 10 L BUN 14 Creatinine 0.66 Estimated GFR > 60 Fasting Glucose 157 H Estimat Average Glucose 177 Hemoglobin A1c % 7.8 H Calcium 9.8 Total Protein 6.9 Albumin 4.3 Triglycerides 117 Cholesterol 131 LDL Cholesterol, Calc 76 HDL Cholesterol 32 L Vitamin B12 340 25-OH Vitamin D Total 25.0 L Folate 6.1 TSH 0.84 Urine Color Yellow Urine Appearance Clear Urine pH 6.0 Ur Specific [place]phant 1.015 Urine Protein Trace Urine Glucose (UA) 100 H Urine Ketones Negative Coding Level of Care Code Est Pt Level 4 (88113) Diagnoses Preoperative clearance Z01.818 Type 2 diabetes mellitus without complication, without long-term current use of insulin E11.9 Diabetes mellitus type: type 2 Diabetes mellitus [facility] insulin use: without terminal computer operator use Diabetes mellitus complication status: without complication Essential hypertension I10 Mixed hyperlipidemia E78.2 Vitamin D deficiency E55.9 Malignant neoplasm of urinary bladder, unspecified site C67.9 Bladder location: unspecified site Obesity (BMI 30-39.9) E66.9 Time Spent (min) 41 Assessment & Plan Assessment & Plan (1) Preoperative clearance: Code(s): Z01.818 - Encounter for other preprocedural examination Category: Medical Plan: Plan: Recent labs and EKG reviewed. Regarding preop clearance, the patient is not at acceptable risk for proposed surgery, due to elevated blood pressure. The patient apparently has been sprinkling salt on her foods and drinking a significant amount of diet Coke. The patient we will cut down on her salt/sodium intake and return on Friday for blood pressure check. Reviewed with the patient that no surgery is completely free of risk and that this examination is to assist the surgeon in reviewing informed consent. (2) Diabetes mellitus: Comment: 20 min reviewing chart eval pt and documenting Code(s): E11.9 - Type 2 diabetes mellitus without complications Category: Medical Qualifiers: Diabetes mellitus type: type 2 Diabetes mellitus [facility] insulin use: without terminal computer operator use Diabetes mellitus complication status: without complic ation Qualified Code(s): E11.9 - Type 2 diabetes mellitus without complications Plan: Patient's HgbA1c was at 7.8% on her labs done a few days ago (HgbA1c was previously at 6.6% back in October 2024) - goal is at least <7.0% Reinforced diabetic diet Continue Metformin 500 mg BID for now - patient admitted to poor compliance with her diet over the summer and will try to get herself back on track with her diet and prefers not to have her medications changed at this time Will recheck patient's FBS and HgbA1c in 4 months for follow up (3) Essential hypertension: Code(s): I10 - Essential (primary) hypertension Category: Medical Plan: Blood pressure significantly elevated. Discussed with the patient that she is unable to have her surgery done with such high blood pressures. Reinforced low sodium diet - goal is systolic BP of at least 130 to 140 mm or less Continue Valsartan 320 mg QD Patient is reminded to have her blood pressure monitored regularly (4) Mixed hyperlipidemia: Code(s): E78.2 - Mixed hyperlipidemia Category: Medical Plan: Results of her labs done a few days ago reviewed and discussed with patient - her cholesterol levels have remained at goal on her recent labs Reinforced low cholesterol diet Continue Atorvastatin 10 mg QD and Fenofibrate 160 mg QD Will recheck her labs and fasting lipids in 4 months for follow up (5) Vitamin D deficiency: Code(s): E55.9 - Vitamin D deficiency, unspecified Category: Medical Plan: Patient is advised that her Vitamin D level was low on her recent labs Have advised her to start taking OTC Vitamin D3 1000 units QD (6) Bladder cancer: Comment: Papillary urothelial, high grade Code(s): C67.9 - Malignant neoplasm of bladder, unspecified Category: Medical Qualifiers: Bladder location: unspecified site Qualified Code(s): C67.9 - Malignant neoplasm of bladder, unspecified Plan: S/P Tx with surgical resection and Mitomycin about 14 years ago (2010) Recent work ups done to further evaluate her hematuria, including cystoscopy, all came back negative for cancer recurrence Follow up with urology as scheduled for continuing surveillance (7) Obesity (BMI 30-39.9): Code(s): E66.9 - Obesity, unspecified Category: Medical Plan: Reinforced diet/exercise as tolerated/lose weight Plan Follow up in 4 months
[2025-07-27 14:28] VITALS: BP 172/68; PULSE 69; RESP 18; TEMP 36.3; O2SAT 97; BMI 34.0
--- OUTSIDE RECORDS SUMMARY | 2025-07-27 17:30 | XMS_ITS | Encounter Summary ---
Author Organization [facility] Address [address] [place] [address] Care Team Providers Care Hvac Technician Residential Name Role Phone Physician, Pcp Unknown Primary Care Provider María vailable Encounter Details Date Type Department Care Team (Late st Contact Info) Description 11/11/2024 Lab Requisition [facility] - Main Lab [address] [facility] [address] Rigoberto Zurita MD [address] [facility] [address] [place] [phone] Gross hematuria Social History Tobacco Use Types [...] AM EST) Final Diagnosis A. Urine, Voided, ([id number]): -ATYPICAL UROTHELIAL CELLS. Results of UroVysion fluorescence in situ hybridization (FISH) testing: CEP3: Normal CEP7: Normal CEP17: Normal LSI 9p21: Normal Interpretation: Normal profile Controls stained appropriately. Note: The results are intended as a screening device and should be interpreted in association with other clinical and pathological findings. 11/11/2024 5:21 PM EST [facility] H[facility] LAB Clinical Information Gross hematuria R31.0 Urine Cytology/FISH (now) 11/11/2024 5:[address] [facility] Gross Description A. Urine, Voided, ([id number]): Received one ThinPrep slide for cytology and one ThinPrep slide for UroVysion FISH 11/11/2024 5:21 PM [facility] Disclaimer Unless otherwise specified, all tissue is 10% NB formalin fixed and paraffin embedded. Technical pathology services provided by [facility] at [address], [place] [address] (CLIA #[id number]/Tequila Fox MD, Coding Quality Coordinator) 11/11/2024 5:21 PM [facility] Tissue Urine specimen from urethra / Unknown 11/05/2024 11/11/2024 11:40 AM EST us Rigoberto Zurita MD LAB PATHOLOGY ORDERABLES Final Result [facility] [address] [place] [address], documented in this encounter Visit Diagnoses Diagnosis Gross hematuria documented in this encounter Care Teams Hvac Technician Residential Relationship Specialty Start Date End Date Physician, Pcp Unknown PCP - General 11/11/24 documented as of this encounter
--- OUTSIDE RECORDS SUMMARY | 2025-07-27 17:30 | XMS_ITS | Clinical Summary ---
Author Organization [address] [facility] Address [address] [place] [address] Phone Care Team Providers Care Automatic Steel Tie Adjuster Name Role Phone Physician, Pcp Unknown Primary [...] this topic Insurance MEDICARE [employer] Care Teams Automatic Steel Tie Adjuster Relationship Specialty Start Date End Date Physician, Pcp Unknown PCP - General 11/11/24
--- OUTSIDE RECORDS SUMMARY | 2025-07-27 17:31 | XMS_ITS | Clinical Summary ---
Author Organization [facility] Address [address] [place] [address] Phone Care Team Providers Care Pari Mutuel Ticket Cashier Name Role Phone Octaviano Scott MD Unavailable [phone] Octaviano Scott MD Primary Care Provider [phone] Allergies No known active allergies Medications valsartan [...] file Insurance MEDICARE PART A & B [employer] SUPPLEMENT MEDICARE PART A & B [employer] MEDEX SUPPLEMENT MEDICARE PART A & B Member Subscriber Plan / Payer (Ef fective 2015-Present) Name:Mercedes Benitez Member ID:[id number] Relation to Subscriber:Self Name:Mercedes Benitez Subscriber ID:[id number] Payer ID:[id number] Group ID:Not on file Type:Medicare Address: [employer] [facility] [address] [facility] MEDEX SUPPLEMENT MEDICARE PART A & B [employer] MEDEX SUPPLEMENT MEDICARE PART A & B [employer] MEDEX SUPPLEMENT MEDICARE PART A & B [employer] MEDEX SUPPLEMENT MEDICARE PART A & B [employer] MEDEX SUPPLEMENT MEDICARE PART A & B [employer] MEDEX SUPPLEMENT MEDICARE PART A & B [employer] MEDEX SUPPLEMENT Care Teams Pari Mutuel Ticket Cashier Relationship Specialty Start Date End Date Octaviano Scott MD [address] [place] [address] [place] [id number] PCP - Internal Medicine Internal Medicine 04/15/20 Octaviano Scott MD [address] [place] [address] [place] [id number] PCP - General Internal Medicine 04/15/20 Additional Source Comments The information contained in this document represents components of the legal health record. It is not the complete legal health record.[facility]
== END 2025-07-27 15:46 | disposition home or self-care (01) ==
LOC: HO.HMCH 14:18
PROVIDERS: PCP Internal Medicine
DX: E11.9 Type 2 diabetes mellitus without complications (principal); C67.9 Malignant neoplasm of bladder, unspecified; Z01.818 Encounter for other preprocedural examination; I10 Essential (primary) hypertension; E78.2 Mixed hyperlipidemia; E55.9 Vitamin D deficiency, unspecified; E66.9 Obesity, unspecified

== ENCOUNTER → 2025-07-27 14:17 | Outpatient (BNVA) | payer MEDICARE, SELFPAY | PROVIDERS: PCP Internal Medicine | DX: Z01.818 Encounter for other preprocedural examination (principal); E11.9 Type 2 diabetes mellitus without complications; E78.2 Mixed hyperlipidemia; I10 Essential (primary) hypertension; E55.9 Vitamin D deficiency, unspecified; C67.9 Malignant neoplasm of bladder, unspecified; E66.9 Obesity, unspecified | CPT/HCPCS: 99212 ==

== ENCOUNTER 2025-07-28 10:47 | Outpatient (AMB) | payer MEDICARE, SELFPAY ==
--- NOTE | 2025-07-28 11:00 | A.OFFVIS_ITS ---
Intake Visit Reasons: 3m neck pain Allergies No Known Allergies Allergy (Verified 07/27/25 15:00) HPI Comments Details: 75 yo RH woman with chronic tension type headaches and gait disorder with sensory probably diabetic neuropathy?(With obesity, type II DM, bladder cancer in 2011 treated with surgery and bladder injection treatment, HTN, and recent extensive cardiac workup that was triggered by a finding on a scan but the workup was negative, was here for difficulty walking. She c/o of a pressure type feeling in the back of head and neck, more so on left side, making her unsteady. She denied any previous h/o headaches). [facility] Medical History Vitamin D deficiency Peripheral neuropathy Gait abnormality Tension type headache Obesity (BMI 30-39.9) Mixed hyperlipidemia Essential hypertension Hx of sigmoidoscopy Bladder cancer Diabetes mellitus Surgical History History of esophagogastroduodenoscopy (EGD) Hx of cystoscopy History of total abdominal hysterectomy History of bladder surgery H/O rectal polypectomy History of cholecystectomy Family History Father Hodgkin disease Mother Medical history unknown Social History Housing: House Are you a primary acute care nurse to a significant other at home: No Do you presently have visiting nurse or other home services: No Alcohol intake: current Alcohol intake frequency: holidays/special occasions only Patient Tobacco Use Status: Never used Tobacco Tobacco use type: Cigarette e-Cigarette/Vaping Use: Never Used Second Hand Smoke Exposure: No service: No Current occupational status: retired Current occupational exposures/hazards: No Cognitive needs: No Hearing needs: No Vision needs: Yes (Glasses) Physical Exam Neuro Other: Mental Status: Alert and oriented to person, place, and time. Normal attention. Normal spontaneous speech, fluency, and comprehension. No obvious issues with mood and memory. Affect is appropriate. Cranial Nerves: CN II: Visual acevedo full to confrontation, visual acuity intact. CN III, IV, : Pupils equal, round, reactive to light and accommodation. Extraocular movements are normal. CN V: Facial sensation is normal. CN VII: Facial movements symmetrical. CN VIII: Hearing intact to bedside conversation is normal. CN IX, X: Palate elevates symmetrically. CN XI: Shoulder shrug and head turn symmetrical. CN XII: Tongue midline without atrophy or fasciculations. Coordination: [id number] is ok. Gait and Station: No obvious gait abnormality. No ataxia or instability. Extrapyramidal: Full facial expressions and blinking. No rigidity. Movements are appropriate with no tremor or abnormality. Speech: Normal; no dysarthria or tremor. Results Reviewed Results Reviewed: Laboratory Tests 04/21/25 06/20/25 10:45 09:39 Vitamin B12 340 Folate 6.1 TSH 0.84 IgG Total 986 IgA Total 205 IgM 183 BLANQUITA Interpretation SEE NOTE Normal pattern. No monoclonal proteins detected. CLINICAL HISTORY: M47.812 - Spondylosis without myelopathy or radiculopathy, cervical region 5 views cervical spine Comparison: None provided Findings: Normal alignment. No acute fractures or dislocation. Multilevel disc space narrowing and endplate osteophyte formation, as well as facet hypertrophy. No prevertebral soft tissue swelling. IMPRESSION: No acute findings. Assessment & Plan Assessment & Plan (1) Peripheral neuropathy: Comment: EMG/NCS at off in Sep 2024: Sensory neuropathy Code(s): G62.9 - Polyneuropathy, unspecified Category: Medical Qualifiers: Peripheral neuropathy type: polyneuropathy, unspecified Qualified Code(s): G62.9 - Polyneuropathy, unspecified (2) Chronic tension type headache: Code(s): G44.229 - Chronic tension-type headache, not intractable Category: Medical Qualifiers: Intractability: not intractable Qualified Code(s): G44.229 - Chronic tension-type headache, not intractable (3) Cervical spondyloarthritis: Code(s): M47.812 - Spondylosis without myelopathy or radiculopathy, cervical region Category: Medical Qualifiers: Spinal osteoarthritis complication: without myelopathy or radiculopathy Qualified Code(s): M47.812 - Spondylosis without myelopathy or radiculopathy, cervical region Plan Impression: a: Chronic tension type headaches. b. Chronic neck pain, probably spondyloarthritis c: Sensory peripheral neuropathy Rec: Coding Level of Care Code Est Pt Level 4 (40747) Diagnoses Peripheral polyneuropathy G62.9 Peripheral neuropathy type: polyneuropathy, unspecified Chronic tension-type headache, not intractable G44.229 Intractability: not intractable Spondylosis of cervical region without myelopathy or radiculopathy M47.812 Spinal osteoarthritis complication: without myelopathy or radiculopathy
--- NOTE | 2025-07-28 11:07 | A.OFFVIS_ITS ---
Intake Visit Reasons: 3m neck pain Allergies No Known Allergies Allergy (Verified 07/27/25 15:00) PFSH Medical History Vitamin D deficiency Peripheral neuropathy Gait abnormality Tension type headache Obesity (BMI 30-39.9) Mixed hyperlipidemia Essential hypertension Hx of sigmoidoscopy Bladder cancer Diabetes mellitus Surgical History History of esophagogastroduodenoscopy (EGD) Hx of cystoscopy History of total abdominal hysterectomy History of bladder surgery H/O rectal polypectomy History of cholecystectomy Family History Father Hodgkin disease Mother Medical history unknown Social History Housing: House Are you a primary career guidance technician to a significant other at home: No Do you presently have visiting nurse or other home services: No Alcohol intake: current Alcohol intake frequency: holidays/special occasions only Patient Tobacco Use Status: Never used Tobacco Tobacco use type: Cigarette e-Cigarette/Vaping Use: Never Used Second Hand Smoke Exposure: No service: No Current occupational status: retired Current occupational exposures/hazards: No Cognitive needs: No Hearing needs: No Vision needs: Yes (Glasses) Assessment & Plan Assessment & Plan (1) Peripheral neuropathy: Comment: EMG/NCS at off in Sep 2024: Sensory neuropathy Code(s): G62.9 - Polyneuropathy, unspecified Category: Medical Qualifiers: Peripheral neuropathy type: polyneuropathy, unspecified Qualified Code(s): G62.9 - Polyneuropathy, unspecified (2) Tension type headache: Code(s): G44.209 - Tension-type headache, unspecified, not intractable Category: Medical Qualifiers: Headache chronicity pattern: episodic headache Intractability: not intractable Qualified Code(s): G44.219 - Episodic tension-type headache, not intractable Plan Her symptoms were resolved and she was thankful. No significant pathology noted on her testing. She was reassured and educated. No follow-up appointment was made with an understanding that she could come back if needed. Coding Level of Care Code Est Pt Level 4 (36625) Diagnoses Peripheral polyneuropathy G62.9 Peripheral neuropathy type: polyneuropathy, unspecified Episodic tension-type headache, not intractable G44.219 Headache chronicity pattern: episodic headache Intractability: not intractable
--- OUTSIDE RECORDS SUMMARY | 2025-07-28 13:07 | XMS_ITS | Encounter Summary ---
Author Organization [facility] Address [address] [place] [address] Care Team Providers Care Public Address Announcer Name Role Phone Physician, Pcp Unknown Primary Care Provider María vailable Encounter Details Date Type Department Care Team (Late st Contact Info) Description 11/11/2024 Lab Requisition [facility] - Main Lab [address] [facility] [place] [address] Rigoberto Zurita MD [address] [facility] [address] [place] [id number] Gross hematuria Social History Tobacco Use Types [...] AM EST) Final Diagnosis A. Urine, Voided, ([id number]): -ATYPICAL UROTHELIAL CELLS. Results of UroVysion fluorescence in situ hybridization (FISH) testing: CEP3: Normal CEP7: Normal CEP17: Normal LSI 9p21: Normal Interpretation: Normal profile Controls stained appropriately. Note: The results are intended as a screening device and should be interpreted in association with other clinical and pathological findings. 11/11/2024 5:21 PM EST [facility] Clinical Information Gross hematuria R31.0 Urine Cytology/FISH (now) 11/11/2024 5:21 PM EST [facility] Gross Description A. Urine, Voided, ([id number]): Received one ThinPrep slide for cytology and one ThinPrep slide for UroVysion FISH 11/11/2024 5:21 PM [facility] Disclaimer Unless otherwise specified, all tissue is 10% NB formalin fixed and paraffin embedded. Technical pathology services provided by [facility] at [address], [place] [address] (CLIA #[id number]/Tequila Fox MD, Chucking Machine Operator) 11/11/2024 5:21 PM [facility] Tissue Urine specimen from urethra / Unknown 11/05/2024 11/11/2024 11:40 AM EST us Rigoberto Zurita MD LAB PATHOLOGY ORDERABLES Final Result [facility] [address] [place] [address], documented in this encounter Visit Diagnoses Diagnosis Gross hematuria documented in this encounter Care Teams Public Address Announcer Relationship Specialty Start Date End Date Physician, Pcp Unknown PCP - General 11/11/24 documented as of this encounter
--- OUTSIDE RECORDS SUMMARY | 2025-07-28 13:07 | XMS_ITS | Clinical Summary ---
Author Organization [facility] Address [address] [place] [address] Phone Care Team Providers Care Clerk Specialist Name Role Phone Physician, Pcp Unknown Primary [...] age to complete this topic Insurance MEDICARE [facility] Care Teams Clerk Specialist Relationship Specialty Start Date End Date Physician, Pcp Unknown PCP - General 11/11/24
--- OUTSIDE RECORDS SUMMARY | 2025-07-28 13:07 | XMS_ITS | Clinical Summary ---
Author Organization [facility] Address [address] [place] [address] Phone Care Team Providers Care Blow Pit Helper Name Role Phone Octaviano Scott MD Unavailable [phone] Octaviano Scott MD Primary Care Provider [phone] Allergies No known active allergies Medications valsartan [...] file Insurance MEDICARE PART A & B Secret SUPPLEMENT MEDICARE PART A & B [email or web address] MEDEX SUPPLEMENT MEDICARE PART A & B Member Subscriber Plan / Payer (Ef fective 2015-Present) Name:Mercedes Benitez Member ID:[id number] Relation to Subscriber:Self Name:Mercedes Benitez Subscriber ID:[id number] Payer ID:[id number] Group ID:Not on file Type:Medicare Address: [employer] [facility].[address] [address] [facility] MEDEX SUPPLEMENT MEDICARE PART A & B [email or web address] MEDEX SUPPLEMENT MEDICARE PART A & B [email or web address] MEDEX SUPPLEMENT MEDICARE PART A & B [employer] MEDEX SUPPLEMENT MEDICARE PART A & B [employer] MEDEX SUPPLEMENT MEDICARE PART A & B [email or web address] MEDEX SUPPLEMENT MEDICARE PART A & B [email or web address] MEDEX SUPPLEMENT Care Teams Blow Pit Helper Relationship Specialty Start Date End Date Octaviano Scott MD [address] [place] [address] [place] [id number] PCP - Internal Medicine Internal Medicine 04/15/20 Octaviano Scott MD [address] [place] [address] [place] [address] PCP - General Internal Medicine 04/15/20 Additional Source Comments The information contained in this document represents components of the legal health record. It is not the complete legal health record.[facility]
== END 2025-07-28 11:10 | disposition home or self-care (01) ==
LOC: HO.HSM 10:48
PROVIDERS: PCP Internal Medicine; Visit Provider Psychiatry & Neurology Neurology
DX: G62.9 Polyneuropathy, unspecified (principal); G44.229 Chronic tension-type headache, not intractable; M47.812 Spondylosis without myelopathy or radiculopathy, cervical region; G44.219 Episodic tension-type headache, not intractable
CPT/HCPCS: 99214

== ENCOUNTER → 2025-07-28 10:47 | Outpatient (BNVA) | payer MEDICARE, SELFPAY | PROVIDERS: PCP Internal Medicine; Visit Provider Psychiatry & Neurology Neurology | DX: M54.2 Cervicalgia (principal); M47.812 Spondylosis without myelopathy or radiculopathy, cervical region; E11.42 Type 2 diabetes mellitus with diabetic polyneuropathy; Z79.84 Long term (current) use of oral hypoglycemic drugs; G44.229 Chronic tension-type headache, not intractable; R26.9 Unspecified abnormalities of gait and mobility | CPT/HCPCS: 99212 ==